=== PATIENT | female | born 1955 | race Caucasian/White ===

== ENCOUNTER → 2016-06-07 | Outpatient (CLI) | payer OTHER ==
[~2016-06-07] MED LIST: CARI250T PO; CEFD300C2 PO; CHOL100014 PO; CHOL100015 PO; CHOL10002 PO; CHOL3000 PO; FESO8TAB PO; INDO50CA PO; MAGN400T36 PO; MULT-464 PO; Magnesium PO; ONDA4TAB10 PO; ONDA4TAB7 PO; OXYC-302 PO; PANT40TA3 PO; PHYT100T PO; PROM25TA10 PO; PROM50TA4 PO; SUCR1TAB26 PO; TOLT2CAP PO; TOLT2TAB16 PO; TOPI100T24 PO; VITA1CAP PO; VITA40TA PO
== END | disposition home or self-care (01) ==
LOC: CFH 14:30
PROVIDERS: ATTEND Family Medicine
DX: Z12.31 Encounter for screening mammogram for malignant neoplasm of breast (principal)
CPT/HCPCS: 77063; G0202

== ENCOUNTER 2016-07-03 07:46 | Inpatient (IN) | payer OTHER ==
[2016-07-03] VITALS (14 sets, daily range): BP systolic 90–116; BP diastolic 52–74
[~2016-07-03] VITALS: Ht 157.5 cm; Wt 93.4 kg
[~2016-07-03 07:46] MED LIST changes: -CEFD300C2 PO; +CEFD300C37 PO
[2016-07-03] MEDS ORDERED: ONDANSETRON 2MG/ML, 2ML IVPush ONE (08:30)
[2016-07-03] MEDS ORDERED: SODIUM CHLORIDE 0.9% 1,000ML IVBOLUS ONE (08:30)
[2016-07-03 08:37] LABS: ASPARTATE AMINO TRANSFERASE 24 U/L (15-37); BLOOD UREA NITROGEN 48 mg/dL (7-18)
[2016-07-03] MEDS ORDERED: ONDANSETRON 2MG/ML, 2ML ONE (09:06)
[2016-07-03 09:26] LABS: HYPOCHROMIA 2+
[2016-07-03 09:27] LABS: ANISOCYTOSIS 2+; MICROCYTOSIS 2+; POLYCHROMASIA 1+
[2016-07-03 09:28] LABS: OVALOCYTES 1+
[2016-07-03] MEDS ORDERED: PANTOPRAZOLE 80 MG in SODIUM CHLORIDE 0.9% 50 ML IV ONE (10:00)
[2016-07-03] MEDS ORDERED: MORPHINE SULFATE 4 MG/ML, 1ML ONE (10:19)
[2016-07-03] MEDS ORDERED: FENTANYL PF 100 MCG/2ML ONE (10:21)
[2016-07-03] MEDS ORDERED: ZOLP10TA PO (10:28)
[2016-07-03] MEDS ORDERED: FENTANYL PF 100 MCG/2ML IV ONE (10:30)
[2016-07-03] MEDS ORDERED: TOLTERODINE LA 2MG CAP.ER.24H PO SCH (11:00)
[2016-07-03] MEDS ORDERED: ACETAMINOPHEN 325 MG TABLET PO PRN (11:00)
[2016-07-03] MEDS ORDERED: ZOLPIDEM 10MG TABLET PO PRN (11:00)
[2016-07-03] MEDS ORDERED: OMNIPAQUE 350 MG/ML, 100ML BOTTLE ONE (11:01)
[2016-07-03] MEDS ORDERED: [UNRECOGNIZED DRUG - REMARK] MC SCH (11:30)
[2016-07-03] MEDS ORDERED: PHYTONADIONE 5 MG TABLET PO SCH (11:30)
[2016-07-03] MEDS ORDERED: TOLTERODINE LA 4MG CAP.ER.24H PO SCH (13:26)
[2016-07-03] MEDS: SUCRALFATE 1 GM/10 ML UDC PO SCH ×3 (13:31→20:59)
[2016-07-03] MEDS: TOLTERODINE LA 4MG CAP.ER.24H PO SCH (13:35)
[2016-07-03] MEDS: OXYcodone/APAP 5/325MG TABLET PO PRN ×2 (14:22→21:04)
[2016-07-03] MEDS: SODIUM CHLORIDE 0.9% 1,000 ML IV SCH (14:56)
[2016-07-03] MEDS: PANTOPRAZOLE 80 MG in SODIUM CHLORIDE 0.9% 100 ML IV SCH (14:57)
[2016-07-04] VITALS (11 sets, daily range): BP systolic 88–132; BP diastolic 54–77
[2016-07-04] MEDS: PANTOPRAZOLE 80 MG in SODIUM CHLORIDE 0.9% 100 ML IV SCH ×3 (00:35→22:28)
[2016-07-04] MEDS: SODIUM CHLORIDE 0.9% 1,000 ML IV SCH (04:41)
[2016-07-04 06:55] LABS: BLOOD UREA NITROGEN 29 mg/dL (7-18)
[2016-07-04 07:07] LABS: ANISOCYTOSIS 1+; MICROCYTOSIS 1+; OVALOCYTES 1+; POIKILOCYTOSIS 1+
[2016-07-04] MEDS: SUCRALFATE 1 GM/10 ML UDC PO SCH ×5 (08:08→22:28)
[2016-07-04] MEDS: OXYcodone/APAP 5/325MG TABLET PO PRN ×4 (08:08→22:29)
[2016-07-04] MEDS: MAGNESIUM OXIDE 400 MG TABLET PO SCH (08:09)
[2016-07-04] MEDS: TOLTERODINE LA 4MG CAP.ER.24H PO SCH (08:09)
[2016-07-04 11:20] LABS: PATH.CAST-FLAG NOT PRESENT; SPERM-FLAG NOT PRESENT; SRC-FLAG NOT PRESENT; XTAL-FLAG NOT PRESENT; YLC-FLAG NOT PRESENT
[2016-07-04] MEDS ORDERED: ONDANSETRON 2MG/ML, 2ML ONE (13:15)
[2016-07-04] MEDS ORDERED: PROPOFOL 10 MG/ML, 20ML ONE (13:15)
[2016-07-04] MEDS ORDERED: FENTANYL PF 100 MCG/2ML ONE (13:59)
[2016-07-04] MEDS ORDERED: HYDROmorphone 1 MG/ML, 1ML IV PRN (14:00)
[2016-07-04] MEDS ORDERED: hydrALAzine 20 MG/ML, 1ML IV PRN (14:00)
[2016-07-04] MEDS ORDERED: OXYcodone 5 MG/5 ML ORAL.SOL UDC PO PRN (14:00)
[2016-07-04] MEDS ORDERED: ONDANSETRON 2MG/ML, 2ML IVPush PRN (14:00)
[2016-07-04] MEDS ORDERED: LABETALOL 5MG/ML, 20ML IV PRN (14:00)
[2016-07-04] MEDS ORDERED: ACETAMINOPHEN 325 MG TABLET PO PRN (14:00)
[2016-07-04] MEDS ORDERED: PROMETHAZINE 25 MG/ML, 1ML IV PRN (14:00)
[2016-07-04] MEDS ORDERED: MIDAZOLAM 1 MG/ML, 2ML IV PRN (14:00)
[2016-07-04] MEDS ORDERED: MEPERIDINE/PF 25MG/0.5ML IVPush PRN (14:00)
[2016-07-04] MEDS: FENTANYL PF 100 MCG/2ML IV PRN ×2 (14:05→14:15)
[2016-07-04] MEDS: FENTANYL PF 100 MCG/2ML IVPush PRN ×3 (14:54→22:29)
[2016-07-04] MEDS: NS + 20MEQ KCL 1,000 ML IV SCH (14:57)
[2016-07-04] MEDS ORDERED: MISOPROSTOL 100 MCG TABLET PO SCH (21:00)
[2016-07-05 02:00] VITALS: BP 96/65
[2016-07-05] MEDS: ONDANSETRON 2MG/ML, 2ML IVP PRN ×2 (03:14→13:55)
[2016-07-05] MEDS: FENTANYL PF 100 MCG/2ML IVPush PRN ×3 (03:27→13:55)
[2016-07-05] MEDS: OXYcodone/APAP 5/325MG TABLET PO PRN ×4 (03:27→18:32)
[2016-07-05] MEDS: NS + 20MEQ KCL 1,000 ML IV SCH (03:58)
[2016-07-05 05:42] LABS: BLOOD UREA NITROGEN 23 mg/dL (7-18)
[2016-07-05 08:02] VITALS: BP 96/63
[2016-07-05] MEDS: TOLTERODINE LA 4MG CAP.ER.24H PO SCH (09:42)
[2016-07-05] MEDS: SUCRALFATE 1 GM/10 ML UDC PO SCH ×3 (09:42→16:40)
[2016-07-05] MEDS: MAGNESIUM OXIDE 400 MG TABLET PO SCH (09:42)
[2016-07-05] MEDS ORDERED: MISOPROSTOL 100 MCG TABLET PO SCH (12:00)
[2016-07-05 12:33] VITALS: BP 96/64
[2016-07-05] MEDS ORDERED: OXYC-302 PO (14:19)
[2016-07-05] MEDS ORDERED: MISO100T PO (14:19)
[2016-07-05] MEDS ORDERED: SUCR1TAB26 PO (14:19)
[2016-07-05] MEDS ORDERED: ONDA4TAB13 SL (14:20)
[2016-07-05] MEDS ORDERED: ONDANSETRON ODT 4 MG ONE (16:39)
== END 2016-07-05 18:57 | disposition home or self-care (01) | DRG 329 ==
LOC: ED 09:46 → EDIP 09:47 → SUATTDRO 10:19 → ED 10:33 → 4EST 11:04
PROVIDERS: ADMIT Internal Medicine; ATTEND Internal Medicine
PROC: 30233N1 Transfusion of Nonautologous Red Blood Cells into Peripheral Vein, Percutaneous Approach (ICD-10-PCS; 2016-07-03)
PROC: 0D5A8ZZ Destruction of Jejunum, Via Natural or Artificial Opening Endoscopic (ICD-10-PCS; 2016-07-04)
PROC: 0DV Gastrointestinal System, Restriction (ICD-10-PCS; principal; 2016-07-04 13:00)
DX: K31.811 Angiodysplasia of stomach and duodenum with bleeding (principal); N17.0 Acute kidney failure with tubular necrosis; D62 Acute posthemorrhagic anemia; E87.1 Hypo-osmolality and hyponatremia; E44.0 Moderate protein-calorie malnutrition; E86.0 Dehydration; G89.29 Other chronic pain; E55.9 Vitamin D deficiency, unspecified; I12.9 Hypertensive chronic kidney disease with stage 1 through stage 4 chronic kidney disease, or unspecified chronic kidney disease; N18.3 Chronic kidney disease, stage 3 (moderate); N32.89 Other specified disorders of bladder; D50.9 Iron deficiency anemia, unspecified; K76.89 Other specified diseases of liver; K76.0 Fatty (change of) liver, not elsewhere classified; Z87.11 Personal history of peptic ulcer disease; Z98.84 Bariatric surgery status; Z90.49 Acquired absence of other specified parts of digestive tract; Z90.710 Acquired absence of both cervix and uterus; Z80.3 Family history of malignant neoplasm of breast; Z88.6 Allergy status to analgesic agent; Z88.5 Allergy status to narcotic agent; Z68.36 Body mass index [BMI] 36.0-36.9, adult; Z87.440 Personal history of urinary (tract) infections; Z78.0 Asymptomatic menopausal state; Z79.891 Long term (current) use of opiate analgesic
CPT/HCPCS: 36415; 74174; 80048; 80053; 81001; 85025; 85610; 86850; 86900; 86923; 93005; 96361; 96374; 96375; 99291; J2405; J2704; J3010; J3480; Q9967; C9113; J7030; P9016

== ENCOUNTER 2016-10-17 12:15 | Day surgery (SDC) | payer OTHER ==
[~2016-10-17] VITALS: Ht 154.9 cm; Wt 87.8 kg
[~2016-10-17 12:15] MED LIST changes: +MISO100T PO; +ONDA4TAB13 SL; +ZOLP10TA PO
[2016-10-17 12:43] VITALS: BP 114/74
[2016-10-17] MEDS ORDERED: LACTATED RINGERS 1,000 ML IV SCH (12:50)
[2016-10-17 13:19] LABS: HEMATOCRIT 25.1 % (34.6-47.8); HEMOGLOBIN 8.4 g/dL (11.7-16.4); WHITE BLOOD COUNT 3.8 x10^3/uL (3.4-10)
[2016-10-17] MEDS ORDERED: ONDANSETRON 2MG/ML, 2ML ONE (13:26)
[2016-10-17] MEDS ORDERED: PROPOFOL 10 MG/ML, 20ML ONE (13:26)
[2016-10-17 13:29] LABS: DIFF TOTAL CELLS COUNTED 100 CELL DIFF
[2016-10-17] MEDS ORDERED: LABETALOL 5MG/ML, 20ML IV PRN (13:30)
[2016-10-17] MEDS ORDERED: MEPERIDINE/PF 25MG/0.5ML IVPush PRN (13:30)
[2016-10-17] MEDS ORDERED: MIDAZOLAM 1 MG/ML, 2ML IV PRN (13:30)
[2016-10-17] MEDS ORDERED: ONDANSETRON 2MG/ML, 2ML IVPush PRN (13:30)
[2016-10-17] MEDS ORDERED: HYDROmorphone 1 MG/ML, 1ML IV PRN (13:30)
[2016-10-17] MEDS ORDERED: hydrALAzine 20 MG/ML, 1ML IV PRN (13:30)
[2016-10-17] MEDS ORDERED: OXYcodone 5 MG/5 ML ORAL.SOL UDC PO PRN (13:30)
[2016-10-17 13:40] LABS: POLYCHROMASIA 1+; VERIFY COUNTS? YES
[2016-10-17 13:41] LABS: ANISOCYTOSIS 1+; MICROCYTOSIS 1+; OVALOCYTES 1+
[2016-10-17] MEDS ORDERED: FENTANYL PF 100 MCG/2ML ONE (13:55)
[2016-10-17] MEDS: FENTANYL PF 100 MCG/2ML IV PRN ×2 (14:00→14:05)
[2016-10-17] MEDS ORDERED: OXYcodone 5 MG/5 ML ORAL.SOL UDC ONE (14:19)
== END 2016-10-17 15:20 ==
LOC: OUT 12:15
PROVIDERS: ATTEND Internal Medicine Gastroenterology
DX: D12.2 Benign neoplasm of ascending colon (principal); D12.3 Benign neoplasm of transverse colon; D50.9 Iron deficiency anemia, unspecified; K21.9 Gastro-esophageal reflux disease without esophagitis; E66.01 Morbid (severe) obesity due to excess calories; Z68.36 Body mass index [BMI] 36.0-36.9, adult; Z88.6 Allergy status to analgesic agent
CPT/HCPCS: 36415; 45385; 85025; 88305; J2405; J2704; J3010

== ENCOUNTER 2016-10-25 19:59 | Emergency (ER) | payer OTHER ==
[~2016-10-25] VITALS: Ht 157.5 cm; Wt 87.3 kg
[~2016-10-25 19:59] MED LIST changes: -SUCR1TAB26 PO; +SUCR1TAB33 PO
[2016-10-25] MEDS ORDERED: FLUORESCEIN OPHTHALMIC 1 MG STRIP EACHEYE ONE (20:30)
[2016-10-25] MEDS ORDERED: PROPARACAINE OPHTH 0.5%, 15ML EACHEYE ONE (20:30)
[2016-10-25] MEDS ORDERED: FLUORESCEIN OPHTHALMIC 1 MG STRIP ONE (20:43)
[2016-10-25] MEDS ORDERED: PROPARACAINE OPHTH 0.5%, 15ML ONE (20:43)
[2016-10-25] MEDS ORDERED: HYDROcodone/APAP 5/325 TABLET ONE (21:09)
[2016-10-25] MEDS ORDERED: ACYCLOVIR 200 MG CAPSULE PO ONE (21:30)
[2016-10-25] MEDS ORDERED: HYDROcodone/APAP 5/325 TABLET PO ONE (21:30)
[2016-10-25 21:46] VITALS: BP 141/72
== END 2016-10-25 21:48 | disposition home or self-care (01) ==
LOC: ED 21:42
DX: B02.29 Other postherpetic nervous system involvement (principal); I10 Essential (primary) hypertension; G89.29 Other chronic pain; Z86.19 Personal history of other infectious and parasitic diseases; Z90.710 Acquired absence of both cervix and uterus; Z90.49 Acquired absence of other specified parts of digestive tract
CPT/HCPCS: 99283

== ENCOUNTER 2016-10-27 09:11 | Emergency (ER) | payer OTHER ==
[~2016-10-27] VITALS: Ht 157.5 cm; Wt 88.9 kg
[2016-10-27 09:19] VITALS: BP 113/72
[2016-10-27] MEDS ORDERED: OXYcodone/APAP 5/325MG TABLET PO ONE (10:00)
[2016-10-27] MEDS ORDERED: FLUORESCEIN OPHTHALMIC 1 MG STRIP ONE (10:17)
[2016-10-27] MEDS ORDERED: OXYcodone/APAP 5/325MG TABLET ONE (10:19)
== END 2016-10-27 12:10 ==
LOC: ED 10:54
DX: H10.231 Serous conjunctivitis, except viral, right eye (principal); B02.9 Zoster without complications; I10 Essential (primary) hypertension; Z88.5 Allergy status to narcotic agent; Z88.6 Allergy status to analgesic agent; Z88.8 Allergy status to other drugs, medicaments and biological substances
CPT/HCPCS: 99283

== ENCOUNTER → 2016-11-12 | Outpatient (CLI) | payer OTHER ==
[~2016-11-12] MED LIST changes: +CYAN250013 PO; +MISO100T4 PO; +MULT-224 PO; +OXYC5TAB3 PO
== END | disposition home or self-care (01) ==
LOC: STAR 14:31
PROVIDERS: ATTEND Surgery
DX: Z02.9 Encounter for administrative examinations, unspecified (principal)

== ENCOUNTER 2016-11-26 08:36 | Inpatient (IN) | payer OTHER ==
[~2016-11-26] VITALS: Ht 157.5 cm; Wt 90.0 kg
[~2016-11-26 08:36] MED LIST changes: +BUPIVACAINE/PF 0.5% ONE; -OXYC5TAB3 PO
[2016-11-26 10:11] LABS: HEMATOCRIT 23.4 % (34.6-47.8); HEMOGLOBIN 7.9 g/dL (11.7-16.4); WHITE BLOOD COUNT 5.6 x10^3/uL (3.4-10)
[2016-11-26 10:31] LABS: ANISOCYTOSIS 2+; MICROCYTOSIS 1+; POLYCHROMASIA 1+
[2016-11-26] MEDS ORDERED: MIDAZOLAM 1 MG/ML, 2ML ONE ×4 (11:01→13:09)
[2016-11-26] MEDS ORDERED: ROCURONIUM 10 MG/ML ONE (11:05)
[2016-11-26] MEDS ORDERED: FENTANYL PF 500 MCG/10ML ONE (11:05)
[2016-11-26] MEDS ORDERED: DEXAMETHASONE 4 MG/ML, 1ML ONE (11:05)
[2016-11-26] MEDS ORDERED: PROPOFOL 10 MG/ML, 20ML ONE (11:05)
[2016-11-26] MEDS ORDERED: ONDANSETRON 2MG/ML, 2ML ONE (11:05)
[2016-11-26] MEDS ORDERED: CEFAZOLIN 1,000 MG ONE (11:05)
[2016-11-26] MEDS ORDERED: OXYcodone 5 MG/5 ML ORAL.SOL UDC PO PRN (12:00)
[2016-11-26] MEDS ORDERED: MEPERIDINE/PF 25MG/0.5ML IVPush PRN (12:00)
[2016-11-26] MEDS ORDERED: FENTANYL PF 100 MCG/2ML IV PRN (12:00)
[2016-11-26] MEDS ORDERED: ONDANSETRON 2MG/ML, 2ML IVPush PRN ×2 (12:00→16:30)
[2016-11-26] MEDS ORDERED: ACETAMINOPHEN 325 MG TABLET PO PRN (12:00)
[2016-11-26] MEDS ORDERED: hydrALAzine 20 MG/ML, 1ML IV PRN (12:00)
[2016-11-26] MEDS: HYDROmorphone 1 MG/ML, 1ML IV PRN ×4 (13:10→13:36)
[2016-11-26] MEDS ORDERED: MEPERIDINE/PF 25MG/0.5ML ONE (13:10)
[2016-11-26] MEDS ORDERED: HYDROmorphone 2 MG/ML, 1ML ONE ×2 (13:10→15:04)
[2016-11-26] MEDS: MIDAZOLAM 1 MG/ML, 2ML IV PRN ×2 (13:19→13:40)
[2016-11-26] MEDS ORDERED: OXYcodone 5 MG/5 ML ORAL.SOL UDC ONE (13:30)
[2016-11-26] MEDS: HYDROmorphone 2 MG/ML, 1ML IVPush PRN ×4 (15:11→21:46)
[2016-11-26] MEDS: LACTATED RINGERS 1,000 ML IV SCH (16:13)
[2016-11-26] MEDS: OXYcodone/APAP 5/325MG TABLET PO PRN ×2 (18:48→21:54)
[2016-11-27] VITALS (7 sets, daily range): BP systolic 108–130; BP diastolic 53–75
[2016-11-27] MEDS: HYDROmorphone 2 MG/ML, 1ML IVPush PRN ×2 (00:42→04:24)
[2016-11-27] MEDS: OXYcodone/APAP 5/325MG TABLET PO PRN ×3 (02:49→11:29)
[2016-11-27] MEDS: LACTATED RINGERS 1,000 ML IV SCH (05:20)
[2016-11-27 06:05] LABS: WHITE BLOOD COUNT 6.5 x10^3/uL (3.4-10)
[2016-11-27 06:11] LABS: HEMATOCRIT 20.3 % (34.6-47.8); HEMOGLOBIN 6.9 g/dL (11.7-16.4)
[2016-11-27] MEDS ORDERED: TOLTERODINE LA 4MG CAP.ER.24H PO SCH (09:00)
[2016-11-27] MEDS ORDERED: CHOLECALCIFEROL 1,000 UNIT TABLET PO SCH (09:00)
[2016-11-27] MEDS ORDERED: CYANOCOBALAMIN 1,000 MCG TABLET PO SCH (09:00)
[2016-11-27] MEDS ORDERED: MAGNESIUM OXIDE 400 MG TABLET PO SCH (09:00)
[2016-11-27] MEDS ORDERED: MISOPROSTOL 100 MCG TABLET PO SCH (09:00)
[2016-11-27] MEDS ORDERED: MULTIVITAMIN 1 TABLET PO SCH (09:00)
[2016-11-27] MEDS ORDERED: VITAMIN K 100 MCG PO SCH (09:00)
[2016-11-27] MEDS: OXYcodone IR 5MG TABLET PO PRN ×2 (10:03→14:10)
[2016-11-27 12:14] LABS: HEMATOCRIT 25.1 % (34.6-47.8); HEMOGLOBIN 8.4 g/dL (11.7-16.4)
[2016-11-27] MEDS ORDERED: OXYC5TAB3 PO (13:36)
[2016-11-28] MEDS ORDERED: PANTOPROZOLE 40MG TABLET PO SCH (06:17)
== END 2016-11-27 14:55 | disposition home or self-care (01) | DRG 355 ==
LOC: OUT 08:36 → ORIP 16:11 → 3WST 19:00
PROVIDERS: ADMIT Surgery; ATTEND Surgery
PROC: 8E0W4CZ Robotic Assisted Procedure of Trunk Region, Percutaneous Endoscopic Approach (ICD-10-PCS; 2016-11-26)
PROC: 0WUF4JZ Supplement Abdominal Wall with Synthetic Substitute, Percutaneous Endoscopic Approach (ICD-10-PCS; principal; 2016-11-26 11:00)
PROC: 30233N1 Transfusion of Nonautologous Red Blood Cells into Peripheral Vein, Percutaneous Approach (ICD-10-PCS; 2016-11-27)
DX: K43.2 Incisional hernia without obstruction or gangrene (principal); D64.9 Anemia, unspecified
CPT/HCPCS: 36415; 85014; 85018; 85025; 86850; 86900; 86923; J0690; J1100; J1170; J2175; J2250; J2405; J2704; J3010; J3490; C1781; P9016

== ENCOUNTER → 2016-12-12 | Outpatient (CLI) | payer OTHER ==
[~2016-12-12] MED LIST changes: -BUPIVACAINE/PF 0.5% ONE; +OXYC5TAB3 PO
== END | disposition home or self-care (01) ==
LOC: PETCFH 08:03
PROVIDERS: ATTEND Internal Medicine Gastroenterology
DX: K21.9 Gastro-esophageal reflux disease without esophagitis (principal); D50.9 Iron deficiency anemia, unspecified; Z98.84 Bariatric surgery status; Z88.8 Allergy status to other drugs, medicaments and biological substances
CPT/HCPCS: 78264; A9541

== ENCOUNTER 2016-12-14 19:42 | Emergency (ER) | payer OTHER ==
[~2016-12-14] VITALS: Ht 157.5 cm; Wt 85.1 kg
[2016-12-14 21:00] LABS: PATH.CAST-FLAG NOT PRESENT; SPERM-FLAG NOT PRESENT; SRC-FLAG NOT PRESENT; XTAL-FLAG NOT PRESENT; YLC-FLAG NOT PRESENT
[2016-12-14] MEDS ORDERED: SODIUM CHLORIDE 0.9% 1,000ML IVBOLUS ONE (21:00)
[2016-12-14] MEDS ORDERED: ONDANSETRON 2MG/ML, 2ML IVPush ONE (21:00)
[2016-12-14] MEDS ORDERED: SODIUM CHLORIDE FLUSH 10ML SYR IVF ONE (21:00)
[2016-12-14] MEDS ORDERED: ONDANSETRON 2MG/ML, 2ML ONE (21:26)
[2016-12-14] MEDS ORDERED: MORPHINE SULFATE 4 MG/ML, 1ML ONE (21:26)
[2016-12-14] MEDS ORDERED: HYDROmorphone 1 MG/ML, 1ML ONE ×2 (21:31→22:31)
[2016-12-14] MEDS: HYDROmorphone 1 MG/ML, 1ML IVPush PRN ×2 (21:32→22:33)
[2016-12-14 21:43] LABS: ASPARTATE AMINO TRANSFERASE 18 U/L (15-37); BLOOD UREA NITROGEN 23 mg/dL (7-18)
[2016-12-14 22:10] LABS: HEMATOCRIT 23.8 % (34.6-47.8); WHITE BLOOD COUNT 5.9 x10^3/uL (3.4-10)
[2016-12-14 22:28] LABS: DIFF TOTAL CELLS COUNTED 100 CELL DIFF
[2016-12-14] MEDS ORDERED: OMNIPAQUE 350 MG/ML, 100ML BOTTLE ONE (22:34)
[2016-12-14 22:37] LABS: ROULEAUX 1+
[2016-12-14 22:38] LABS: POLYCHROMASIA 1+; VERIFY COUNTS? YES
[2016-12-14 22:39] LABS: ANISOCYTOSIS 2+
[2016-12-14 23:01] VITALS: BP 115/71
== END 2016-12-15 00:23 | disposition home or self-care (01) ==
LOC: ED 21:04
DX: R10.32 Left lower quadrant pain (principal); I10 Essential (primary) hypertension
CPT/HCPCS: 36415; 74177; 80053; 81001; 85025; 87086; 93005; 96361; 96374; 96375; 96376; 99285; J1170; J2405; J7030; Q9967

== ENCOUNTER 2017-01-09 08:01 | Inpatient (IN) | payer OTHER ==
[2017-01-07 09:26] LABS: ASPARTATE AMINO TRANSFERASE 19 U/L (15-37); BLOOD UREA NITROGEN 20 mg/dL (7-18)
[2017-01-07 09:29] LABS: HEMATOCRIT 24.4 % (34.6-47.8); HEMOGLOBIN 8.1 g/dL (11.7-16.4)
[2017-01-07 09:49] LABS: DIFF TOTAL CELLS COUNTED 100 CELL DIFF
[2017-01-07 09:52] LABS: VERIFY COUNTS? YES
[2017-01-07 09:55] LABS: ANISOCYTOSIS 2+; LARGE PLATELETS 1+; POLYCHROMASIA 1+; ROULEAUX 1+
[~2017-01-09] VITALS: Ht 157.5 cm; Wt 82.0 kg
[~2017-01-09 08:01] MED LIST changes: +BIOT5TAB PO; +METO10TA82 PO
[2017-01-09] MEDS ORDERED: LACTATED RINGERS 1,000 ML IV SCH (08:32)
[2017-01-09] MEDS ORDERED: STOOL SOFTNER PO (08:35)
[2017-01-09 08:38] VITALS: BP 123/76
[2017-01-09] MEDS ORDERED: LIDOCAINE 1%, 2ML ONE (10:06)
[2017-01-09] MEDS ORDERED: ACETAMINOPHEN 500 MG TABLET ONE (10:08)
[2017-01-09] MEDS ORDERED: ACETAMINOPHEN 500 MG TABLET PO ONE (10:30)
[2017-01-09] MEDS ORDERED: MIDAZOLAM 1 MG/ML, 2ML ONE ×2 (12:08→15:02)
[2017-01-09] MEDS ORDERED: MIDAZOLAM 2 MG/ML ORAL SOL ONE (12:08)
[2017-01-09] MEDS ORDERED: PROPOFOL 10 MG/ML, 20ML ONE ×2 (12:40→15:05)
[2017-01-09] MEDS ORDERED: BUPIVACAINE/PF 0.5% ONE (14:07)
[2017-01-09] MEDS ORDERED: BACITRACIN 50,000 UNIT ONE (14:08)
[2017-01-09] MEDS ORDERED: THROMBIN 20,000 UNIT VIAL TP ONE (14:08)
[2017-01-09] MEDS ORDERED: EPINEPHRINE 1 MG/ML, 1ML ONE (14:08)
[2017-01-09] MEDS ORDERED: MANNITOL PMX 20% 500 ML ONE (14:11)
[2017-01-09] MEDS ORDERED: BUPIVACAINE/PF-EPI 0.5% 1:200K IM ONE (15:00)
[2017-01-09] MEDS ORDERED: FENTANYL PF 500 MCG/10ML ONE (15:02)
[2017-01-09] MEDS ORDERED: CEFUROXIME 1.5 GM ONE (15:03)
[2017-01-09] MEDS ORDERED: LIDOCAINE GEL 2%, 5ML ONE (15:04)
[2017-01-09] MEDS ORDERED: SUCCINYLCHOLINE 20 MG/ML, 10ML ONE (15:05)
[2017-01-09] MEDS ORDERED: ROCURONIUM 10 MG/ML ONE (15:05)
[2017-01-09] MEDS ORDERED: ONDANSETRON 2MG/ML, 2ML ONE ×2 (15:05→15:06)
[2017-01-09] MEDS ORDERED: DEXAMETHASONE 4 MG/ML, 1ML ONE ×2 (15:06)
[2017-01-09] MEDS ORDERED: OXYcodone 5 MG/5 ML ORAL.SOL UDC ONE (16:26)
[2017-01-09] MEDS ORDERED: ACETAMINOPHEN 650 MG/20.3 ML UDC ONE (16:26)
[2017-01-09] MEDS ORDERED: FENTANYL PF 100 MCG/2ML ONE (16:28)
[2017-01-09] MEDS ORDERED: ACETAMINOPHEN 325 MG TABLET PO PRN (16:30)
[2017-01-09] MEDS: FENTANYL PF 100 MCG/2ML IV PRN ×2 (16:30→16:56)
[2017-01-09] MEDS ORDERED: ONDANSETRON 2MG/ML, 2ML IVPush PRN (16:30)
[2017-01-09] MEDS ORDERED: PROMETHAZINE 25 MG/ML, 1ML IV PRN (16:30)
[2017-01-09] MEDS ORDERED: OXYcodone 5 MG/5 ML ORAL.SOL UDC PO PRN (16:30)
[2017-01-09] MEDS ORDERED: MIDAZOLAM 1 MG/ML, 2ML IV PRN (16:30)
[2017-01-09] MEDS ORDERED: hydrALAzine 20 MG/ML, 1ML IV PRN (16:30)
[2017-01-09] MEDS ORDERED: LORazepam 2 MG/ML, 1ML IVPush PRN (16:30)
[2017-01-09] MEDS ORDERED: MEPERIDINE/PF 25MG/0.5ML IVPush PRN (16:30)
[2017-01-09] MEDS ORDERED: LABETALOL 5MG/ML, 20ML IV PRN (16:30)
[2017-01-09] MEDS: HYDROmorphone 1 MG/ML, 1ML IV PRN ×2 (16:40→16:49)
[2017-01-09] MEDS ORDERED: OXYcodone/APAP 5/325MG TABLET PO PRN (18:30)
[2017-01-09] MEDS ORDERED: D5%-0.9% NACL+KCL 20MEQ 1,000 ML IV SCH (18:30)
[2017-01-09] MEDS ORDERED: ONDANSETRON 2MG/ML, 2ML IV PRN (18:30)
[2017-01-09] MEDS ORDERED: CEFAZOLIN PMX 1GM/50ML 50 ML IVPB SCH (19:00)
[2017-01-09] MEDS ORDERED: OXYC-302 PO (19:25)
[2017-01-10] MEDS ORDERED: SENNA/DOCUSATE TABLET PO SCH (09:00)
== END 2017-01-09 19:45 | disposition home or self-care (01) | DRG 842 ==
LOC: ORIP 08:01 → 4NOR 17:45
PROVIDERS: ADMIT Neurological Surgery; ATTEND Neurological Surgery
PROC: 0WB Anatomical Regions, General, Excision (ICD-10-PCS; principal; 2017-01-09 13:00)
DX: C90.30 Solitary plasmacytoma not having achieved remission (principal)
CPT/HCPCS: 36415; 70553; 71020; 80053; 85025; 85610; 85730; 86850; 86900; 88305; 88331; 88341; 88342; 88360; A9585; C1713; J0171; J0697; J1100; J1170; J2250; J2405; J2704; J3010; J3490; A4648; G0461; J0330; J7120

== ENCOUNTER 2017-01-16 06:50 | Day surgery (SDC) | payer OTHER ==
[~2017-01-16] VITALS: Ht 157.5 cm; Wt 80.0 kg
[~2017-01-16 06:50] MED LIST changes: +STOOL SOFTNER PO
[2017-01-16] MEDS ORDERED: LIDOCAINE 1%, 20ML ONE (09:06)
[2017-01-16 09:15] VITALS: BP 130/85
[2017-01-16] MEDS ORDERED: SODIUM CHLORIDE 0.9% 1,000 ML IV SCH (09:17)
[2017-01-16] MEDS ORDERED: FENTANYL PF 100 MCG/2ML ONE (09:38)
[2017-01-16] MEDS ORDERED: MIDAZOLAM 1 MG/ML, 5ML ONE ×2 (09:38)
[2017-01-16] MEDS ORDERED: NALOXONE 1 MG/ML, 2ML ONE (09:39)
[2017-01-16 10:29] LABS: HEMATOCRIT 26.6 % (34.6-47.8); HEMOGLOBIN 9.1 g/dL (11.7-16.4)
[2017-01-16 10:30] LABS: DIFF TOTAL CELLS COUNTED 100 CELL DIFF
[2017-01-16 10:34] LABS: ANISOCYTOSIS 2+; POLYCHROMASIA 1+; ROULEAUX 1+; VERIFY COUNTS? YES
[2017-01-31] MEDS ORDERED: PANT20TA2 PO (15:10)
== END 2017-01-16 17:00 ==
LOC: OUT 06:50
PROVIDERS: ATTEND Specialist
DX: C83.30 Diffuse large B-cell lymphoma, unspecified site (principal); C90.00 Multiple myeloma not having achieved remission
CPT/HCPCS: 36415; 38221; 77012; 85025; 85060; 85097; 88237; 88264; 88280; 88305; 88311; 88313; 88360; 93306; 99156; 99157; G0364; J2250; J3010; J3490; J7030; J2310

== ENCOUNTER → 2017-01-17 | Outpatient (CLI) | payer OTHER | END | disposition home or self-care (01) | LOC: PETCFH 07:39 | PROVIDERS: ATTEND Specialist | DX: C83.31 Diffuse large B-cell lymphoma, lymph nodes of head, face, and neck (principal); M89.8X8 Other specified disorders of bone, other site | CPT/HCPCS: 78815; A9552 ==

== ENCOUNTER 2017-03-07 11:30 | Emergency (ER) | payer OTHER ==
[~2017-03-07] VITALS: Ht 157.5 cm; Wt 86.6 kg
[~2017-03-07 11:30] MED LIST changes: +PANT20TA2 PO
[2017-03-07] MEDS ORDERED: SODIUM CHLORIDE 0.9% 1,000ML IVBOLUS ONE (12:30)
[2017-03-07] MEDS ORDERED: SODIUM CHLORIDE FLUSH 10ML SYR IVF ONE (12:30)
[2017-03-07 12:57] LABS: BASOPHILS # (AUTO) 0.04 x10^3/uL (0-0.1); BASOPHILS % (AUTO) 1 % (0-1); EOSINOPHILS # (AUTO) 0.06 x10^3/uL (0-0.4); EOSINOPHILS % (AUTO) 1 % (1-7); LYMPHOCYTES # (AUTO) 0.34 x10^3/uL (1-3.4); LYMPHOCYTES % (AUTO) 7 % (22-44); MD NO; MEAN CORPUSCULAR HEMOGLOBIN 30.6 pg (27.0-34.8); MEAN CORPUSCULAR HGB CONC 33.4 g/dL (32.4-35.8); MEAN CORPUSCULAR VOLUME 91.7 fL (80-100); MEAN PLATELET VOLUME 10.2 fL (7.4-10.4); MONOCYTES # (AUTO) 0.55 x10^3/uL (0.2-0.8); MONOCYTES % (AUTO) 10 % (2-9); NEUTROPHILS # (AUTO) 4.32 x10^3/uL (1.8-6.8); NEUTROPHILS % (AUTO) 81 % (42-75); PLATELET COUNT 166 x10^3/uL (130-400); RED BLOOD COUNT 3.48 x10^6/uL (3.82-5.3); RED CELL DISTRIBUTION WIDTH 21.4 % (9.6-15.2)
[2017-03-07 13:09] LABS: ALBUMIN 2.7 g/dL (3.4-5.0); ANION GAP 8 mmol/L (5-15); CALCIUM 7.6 mg/dL (8.5-10.1); CHLORIDE 104 mmol/L (98-107); CREATININE 0.92 mg/dL (0.55-1.02)
[2017-03-07 13:51] LABS: MICROSCOPIC NOT IND
[2017-03-07 13:53] LABS: CULTURE INDICATED? NO
[2017-03-07] MEDS ORDERED: ALBUTEROL SULFATE 2.5 MG/3 ML ONE (14:48)
[2017-03-07] MEDS ORDERED: ALBUTEROL SULFATE 2.5 MG/3 ML NPPB SCH (15:00)
[2017-03-07 15:12] VITALS: BP 100/39
== END 2017-03-07 15:14 | disposition home or self-care (01) ==
LOC: ED 15:00
DX: B34.9 Viral infection, unspecified (principal); I10 Essential (primary) hypertension; Z90.49 Acquired absence of other specified parts of digestive tract; Z90.710 Acquired absence of both cervix and uterus
CPT/HCPCS: 36415; 71046; 80048; 81003; 82040; 83605; 85025; 87040; 94640; 96360; 99285; J7030; J7613

== ENCOUNTER 2017-03-11 13:00 | Day surgery (SDC) | payer OTHER ==
[~2017-03-11] VITALS: Ht 157.5 cm; Wt 83.3 kg
[2017-03-11] MEDS ORDERED: LACTATED RINGERS 1,000 ML IV SCH (13:28)
[2017-03-11 13:32] VITALS: BP 127/84
[2017-03-11] MEDS ORDERED: FENTANYL PF 100 MCG/2ML IV PRN (14:00)
[2017-03-11] MEDS ORDERED: LABETALOL 5MG/ML, 20ML IV PRN (14:00)
[2017-03-11] MEDS ORDERED: OXYcodone 5 MG/5 ML ORAL.SOL UDC PO PRN (14:00)
[2017-03-11] MEDS ORDERED: ONDANSETRON 2MG/ML, 2ML IVPush PRN (14:00)
[2017-03-11] MEDS ORDERED: HYDROmorphone 1 MG/ML, 1ML IV PRN (14:00)
[2017-03-11] MEDS ORDERED: PROMETHAZINE 25 MG/ML, 1ML IV PRN (14:00)
[2017-03-11] MEDS ORDERED: hydrALAzine 20 MG/ML, 1ML IV PRN (14:00)
[2017-03-11] MEDS ORDERED: DIAZEPAM 5 MG/ML, 2ML IVPush PRN (14:00)
[2017-03-11] MEDS ORDERED: MEPERIDINE/PF 25MG/0.5ML IVPush PRN (14:00)
[2017-03-11] MEDS ORDERED: MIDAZOLAM 1 MG/ML, 2ML ONE ×2 (14:24)
[2017-03-11] MEDS ORDERED: ONDANSETRON 2MG/ML, 2ML ONE (14:37)
[2017-03-11] MEDS ORDERED: EPHEDRINE 50 MG/ML, 1ML ONE (14:37)
[2017-03-11] MEDS ORDERED: PROPOFOL 10 MG/ML, 20ML ONE (14:37)
[2017-03-11] MEDS ORDERED: MIDAZOLAM 1 MG/ML, 5ML ONE (14:57)
[2017-03-11] MEDS ORDERED: GADOBUTROL 10 MMOL/10 ML PFS ONE (15:17)
== END 2017-03-11 16:35 ==
LOC: OUT 13:00 → EDSTATUS 15:00 → OUT 16:35
PROVIDERS: ATTEND Specialist
DX: C90.00 Multiple myeloma not having achieved remission (principal); Z91.09 Other allergy status, other than to drugs and biological substances; K21.9 Gastro-esophageal reflux disease without esophagitis
CPT/HCPCS: 70553; A9585; J2250; J2405; J2704; J7120

== ENCOUNTER → 2017-05-07 | Outpatient (CLI) | payer OTHER | END | disposition home or self-care (01) | LOC: PETCFH 09:33 | PROVIDERS: ATTEND Specialist | DX: C90.00 Multiple myeloma not having achieved remission (principal); M89.9 Disorder of bone, unspecified | CPT/HCPCS: 78815; A9552 ==

== ENCOUNTER 2017-05-08 08:37 | Day surgery (SDC) | payer OTHER ==
[~2017-05-08] VITALS: Ht 157.5 cm; Wt 91.3 kg
[2017-05-08] MEDS ORDERED: SODIUM CHLORIDE 0.9% 1,000 ML IV SCH (09:20)
[2017-05-08] MEDS ORDERED: PLEASE ENTER HEIGHT AND WEIGHT MC SCH (09:30)
[2017-05-08] MEDS ORDERED: MIDAZOLAM 1 MG/ML, 5ML ONE (10:01)
[2017-05-08] MEDS ORDERED: FENTANYL PF 100 MCG/2ML ONE (10:01)
[2017-05-08] MEDS ORDERED: NALOXONE 1 MG/ML, 2ML ONE (10:01)
[2017-05-08] MEDS ORDERED: FLUMAZENIL 0.1 MG/1 ML, 5ML ONE (10:01)
[2017-05-08 10:07] LABS: MEAN CORPUSCULAR HEMOGLOBIN 29.2 pg (27.0-34.8); MEAN CORPUSCULAR HGB CONC 33.1 g/dL (32.4-35.8); MEAN CORPUSCULAR VOLUME 88.1 fL (80-100); MEAN PLATELET VOLUME 11.3 fL (7.4-10.4); PLATELET COUNT 294 x10^3/uL (130-400); RED BLOOD COUNT 4.83 x10^6/uL (3.82-5.3); RED CELL DISTRIBUTION WIDTH 17.4 % (9.6-15.2)
[2017-05-08 10:43] LABS: MD YES
[2017-05-08 10:46] LABS: BAND#(MANUAL) 0.91 x10^3/uL; BANDS%(MANUAL) 13 % (0-7); LYMPHS% (MANUAL) 10 % (22-44); MONOS#(MANUAL) 0.07 x10^3/uL (0.3-2.7); MONOS% (MANUAL) 1 % (2-9); SEG#(MANUAL) 5.32 x10^3/uL (1.8-6.8); SEGS% (MANUAL) 76 % (42-75)
[2017-05-08 10:47] LABS: <PLATELET ESTIMATE> ADEQUATE; ANISOCYTOSIS 1+; LARGE PLATELETS 1+; OVALOCYTES 1+
== END 2017-05-08 15:40 | disposition home or self-care (01) ==
LOC: OUT 08:37
PROVIDERS: ATTEND Specialist
DX: C83.30 Diffuse large B-cell lymphoma, unspecified site (principal); C90.00 Multiple myeloma not having achieved remission; D50.8 Other iron deficiency anemias; N18.9 Chronic kidney disease, unspecified; K21.9 Gastro-esophageal reflux disease without esophagitis; F32.89 Other specified depressive episodes; Z90.710 Acquired absence of both cervix and uterus; Z90.49 Acquired absence of other specified parts of digestive tract; Z98.890 Other specified postprocedural states; Z98.84 Bariatric surgery status; Z88.8 Allergy status to other drugs, medicaments and biological substances; Z79.891 Long term (current) use of opiate analgesic; Z79.82 Long term (current) use of aspirin; Z79.899 Other long term (current) drug therapy
CPT/HCPCS: 36415; 38222; 71046; 77012; 85025; 85060; 85097; 88237; 88264; 88280; 88305; 88311; 88313; 93005; 99156; 99157; J2250; J3010; J7030; 88360; J2310

== ENCOUNTER 2017-05-26 13:49 | Emergency (ER) | payer OTHER ==
[~2017-05-26] VITALS: Ht 157.5 cm; Wt 91.6 kg
[2017-05-26 14:17] VITALS: BP 121/83
[2017-05-26] MEDS ORDERED: HYDROcodone/APAP 5/325 TABLET PO ONE (15:00)
[2017-05-26] MEDS ORDERED: HYDROcodone/APAP 5/325 TABLET ONE (15:31)
== END 2017-05-26 16:12 | disposition home or self-care (01) ==
LOC: ED 15:40
DX: S39.012A Strain of muscle, fascia and tendon of lower back, initial encounter (principal); M25.512 Pain in left shoulder; I10 Essential (primary) hypertension; G89.29 Other chronic pain; W19.XXXA Unspecified fall, initial encounter; Y93.89 Activity, other specified; Y92.89 Other specified places as the place of occurrence of the external cause; Y99.8 Other external cause status
CPT/HCPCS: 72110; 99284

== ENCOUNTER → 2017-05-26 | Outpatient (CLI) | payer OTHER | END | disposition home or self-care (01) | LOC: CVU 11:49 | PROVIDERS: ATTEND Specialist | DX: C90.00 Multiple myeloma not having achieved remission (principal); C79.51 Secondary malignant neoplasm of bone; D50.9 Iron deficiency anemia, unspecified | CPT/HCPCS: 93306; 94010; 94726; 94729 ==

== ENCOUNTER → 2017-06-09 | Outpatient (CLI) | payer OTHER | END | disposition home or self-care (01) | LOC: CARD 16:44 | PROVIDERS: ATTEND Specialist | DX: C90.00 Multiple myeloma not having achieved remission (principal) | CPT/HCPCS: 93005 ==

== ENCOUNTER → 2017-07-14 | Outpatient (CLI) | payer OTHER ==
[2017-07-14 07:35] LABS: BASOPHILS # (AUTO) 0.05 x10^3/uL (0-0.1); BASOPHILS % (AUTO) 1 % (0-1); EOSINOPHILS # (AUTO) 0.18 x10^3/uL (0-0.4); EOSINOPHILS % (AUTO) 5 % (1-7); LYMPHOCYTES # (AUTO) 0.72 x10^3/uL (1-3.4); LYMPHOCYTES % (AUTO) 19 % (22-44); MD NO; MEAN CORPUSCULAR HEMOGLOBIN 29.1 pg (27.0-34.8); MEAN CORPUSCULAR HGB CONC 33.3 g/dL (32.4-35.8); MEAN CORPUSCULAR VOLUME 87.2 fL (80-100); MEAN PLATELET VOLUME 7.7 fL (7.4-10.4); MONOCYTES # (AUTO) 0.59 x10^3/uL (0.2-0.8); MONOCYTES % (AUTO) 16 % (2-9); NEUTROPHILS # (AUTO) 2.27 x10^3/uL (1.8-6.8); NEUTROPHILS % (AUTO) 60 % (42-75); PLATELET COUNT 340 x10^3/uL (130-400); RED BLOOD COUNT 4.69 x10^6/uL (3.82-5.3); RED CELL DISTRIBUTION WIDTH 19.7 % (9.6-15.2)
[2017-07-14 07:46] LABS: ALANINE AMINOTRANSFERASE 32 U/L (12-78); ALBUMIN 3.3 g/dL (3.4-5.0); ANION GAP 7 mmol/L (5-15); CALCIUM 9.6 mg/dL (8.5-10.1); CHLORIDE 106 mmol/L (98-107); CREATININE 0.94 mg/dL (0.55-1.02)
[2017-07-14 07:48] LABS: ALKALINE PHOSPHATASE 100 U/L (45-117); BILIRUBIN,TOTAL 0.4 mg/dL (0.2-1.0); TOTAL PROTEIN 6.6 g/dL (6.4-8.2)
== END ==
LOC: LAB 07:11
PROVIDERS: ATTEND Specialist
DX: C79.51 Secondary malignant neoplasm of bone (principal); C90.00 Multiple myeloma not having achieved remission; D50.9 Iron deficiency anemia, unspecified
CPT/HCPCS: 36415; 80053; 82232; 82784; 83883; 84155; 84156; 84165; 84166; 85025; 86334; 86335

== ENCOUNTER 2017-07-15 10:37 | Day surgery (SDC) | payer OTHER ==
[~2017-07-15] VITALS: Ht 157.5 cm; Wt 93.0 kg
[2017-07-15 10:52] VITALS: BP 146/90
[2017-07-15] MEDS ORDERED: LACTATED RINGERS 1,000 ML IV SCH (10:57)
[2017-07-15] MEDS ORDERED: PLEASE ENTER HEIGHT AND WEIGHT MC SCH (11:30)
[2017-07-15] MEDS ORDERED: MIDAZOLAM 1 MG/ML, 5ML ONE (12:44)
[2017-07-15] MEDS ORDERED: PROPOFOL 10 MG/ML, 20ML ONE (12:45)
== END 2017-07-15 15:00 ==
LOC: OUT 10:37 → EDSTATUS 12:45 → OUT 15:00
PROVIDERS: ATTEND Physician Assistant
DX: M75.112 Incomplete rotator cuff tear or rupture of left shoulder, not specified as traumatic (principal)
CPT/HCPCS: 73221; J2704; J7120

== ENCOUNTER 2017-12-25 06:26 | Day surgery (SDC) | payer OTHER ==
[~2017-12-25 06:26] MED LIST changes: +ACYC-114 PO; +ASPI-650 PO; +CALC-545 PO; +DEXA4TAB66 PO; -INDO50CA PO; +INDO50CA5 PO; +LENA15CA PO; +ONDA8TAB9 PO; +PROC25SU25 PR
[2017-12-25] MEDS ORDERED: LACTATED RINGERS 1,000 ML IV SCH (07:17)
[2017-12-25] MEDS ORDERED: ACETAMINOPHEN 500 MG TABLET PO ONE (07:30)
[2017-12-25] MEDS ORDERED: GABAPENTIN 300 MG CAPSULE PO ONE (07:30)
[2017-12-25] MEDS ORDERED: ONDANSETRON ODT 8 MG PO ONE (07:30)
[2017-12-25 07:43] VITALS: BP 119/82
[2017-12-25] MEDS ORDERED: FENTANYL PF 100 MCG/2ML ONE (08:26)
[2017-12-25] MEDS ORDERED: MIDAZOLAM 1 MG/ML, 5ML ONE (08:26)
[2017-12-25 08:32] LABS: BASOPHILS # (AUTO) 0.02 x10^3/uL (0-0.1); BASOPHILS % (AUTO) 0 % (0-1); EOSINOPHILS # (AUTO) 0.12 x10^3/uL (0-0.4); EOSINOPHILS % (AUTO) 2 % (1-7); LYMPHOCYTES # (AUTO) 0.74 x10^3/uL (1-3.4); LYMPHOCYTES % (AUTO) 9 % (22-44); MD NO; MEAN CORPUSCULAR HEMOGLOBIN 32.8 pg (27.0-34.8); MEAN CORPUSCULAR HGB CONC 33.8 g/dL (32.4-35.8); MONOCYTES # (AUTO) 0.56 x10^3/uL (0.2-0.8); MONOCYTES % (AUTO) 7 % (2-9); NEUTROPHILS # (AUTO) 6.71 x10^3/uL (1.8-6.8); NEUTROPHILS % (AUTO) 82 % (42-75); PLATELET COUNT 251 x10^3/uL (130-400); RED CELL DISTRIBUTION WIDTH 13.3 % (9.6-15.2)
[2017-12-25] MEDS ORDERED: PROPOFOL 10 MG/ML, 20ML ONE (08:59)
[2017-12-25] MEDS ORDERED: SUCCINYLCHOLINE 20 MG/ML, 10ML ONE (08:59)
[2017-12-25] MEDS ORDERED: DEXAMETHASONE 4 MG/ML, 1ML ONE (08:59)
[2017-12-25] MEDS ORDERED: LIDOCAINE-MPF 1%, 5ML ONE ×2 (09:02)
[2017-12-25] MEDS: HYDROmorphone 1 MG/ML, 1ML IV PRN ×4 (09:42→10:11)
[2017-12-25] MEDS ORDERED: HYDROmorphone 2 MG/ML, 1ML ONE (09:44)
[2017-12-25] MEDS ORDERED: SCOPOLAMINE PATCH, 1.5MG PATCH.TD72 TD PRN (10:00)
[2017-12-25] MEDS ORDERED: FENTANYL PF 100 MCG/2ML IV PRN (10:00)
[2017-12-25] MEDS ORDERED: OXYcodone 5 MG/5 ML ORAL.SOL UDC PO PRN (10:00)
[2017-12-25] MEDS ORDERED: LABETALOL 5MG/ML, 20ML IV PRN (10:00)
[2017-12-25] MEDS ORDERED: PLEASE ENTER HEIGHT AND WEIGHT MC SCH (10:00)
[2017-12-25] MEDS ORDERED: ONDANSETRON 2MG/ML, 2ML IV PRN (10:00)
[2017-12-25] MEDS ORDERED: MIDAZOLAM 1 MG/ML, 2ML IV PRN (10:00)
[2017-12-25] MEDS ORDERED: ALBUTEROL/IPRATROPIUM 2.5MG/0.5MG, 3 ML NPPB PRN (10:00)
[2017-12-25] MEDS ORDERED: PROMETHAZINE 25 MG SUPP PR PRN (10:00)
== END 2017-12-25 11:20 | disposition home or self-care (01) ==
LOC: OUT 06:26
PROVIDERS: ATTEND Specialist
DX: C90.00 Multiple myeloma not having achieved remission (principal); K21.9 Gastro-esophageal reflux disease without esophagitis; D50.9 Iron deficiency anemia, unspecified; I25.10 Atherosclerotic heart disease of native coronary artery without angina pectoris; F41.9 Anxiety disorder, unspecified; Z93.1 Gastrostomy status; Z98.890 Other specified postprocedural states; Z90.710 Acquired absence of both cervix and uterus; Z90.49 Acquired absence of other specified parts of digestive tract; Z90.3 Acquired absence of stomach [part of]; Z88.6 Allergy status to analgesic agent
CPT/HCPCS: 36415; 38222; 77012; 85025; 85060; 85097; 88305; 88311; 88313; 93005; J0330; J1100; J1170; J2250; J2704; J3010; J7120; Q0162; 88237; 88264; 88280; 88360

== ENCOUNTER 2018-02-13 21:12 | Inpatient (IN) | payer OTHER ==
[~2018-02-13] VITALS: Ht 157.5 cm; Wt 86.9 kg
[2018-02-13 22:17] LABS: BASOPHILS # (AUTO) 0.01 x10^3/uL (0-0.1); BASOPHILS % (AUTO) 0 % (0-1); EOSINOPHILS # (AUTO) 0.02 x10^3/uL (0-0.4); EOSINOPHILS % (AUTO) 0 % (1-7); LYMPHOCYTES # (AUTO) 0.42 x10^3/uL (1-3.4); LYMPHOCYTES % (AUTO) 11 % (22-44); MD NO; MEAN CORPUSCULAR HEMOGLOBIN 31.9 pg (27.0-34.8); MEAN CORPUSCULAR HGB CONC 33.6 g/dL (32.4-35.8); MEAN CORPUSCULAR VOLUME 95.1 fL (80-100); MONOCYTES # (AUTO) 0.24 x10^3/uL (0.2-0.8); MONOCYTES % (AUTO) 6 % (2-9); NEUTROPHILS # (AUTO) 3.19 x10^3/uL (1.8-6.8); NEUTROPHILS % (AUTO) 82 % (42-75); PLATELET COUNT 170 x10^3/uL (130-400); RED BLOOD COUNT 4.03 x10^6/uL (3.82-5.3); RED CELL DISTRIBUTION WIDTH 14.7 % (9.6-15.2)
[2018-02-13] MEDS ORDERED: SULF1TAB24 PO (22:19)
[2018-02-13 22:27] LABS: ANION GAP 9 mmol/L (5-15); CALCIUM 7.9 mg/dL (8.5-10.1); CHLORIDE 104 mmol/L (98-107); CREATININE 0.93 mg/dL (0.55-1.02)
[2018-02-13 22:31] LABS: TROPONIN I < 0.015 ng/mL (0.000-0.045)
[2018-02-13] MEDS ORDERED: OMNIPAQUE 350 MG/ML, 100ML BOTTLE ONE (23:40)
[2018-02-14 00:20] LABS: RAPID INFLUENZA A Negative (Negative); RAPID INFLUENZA B Negative (Negative)
[2018-02-14] MEDS ORDERED: AZITHROMYCIN 500 MG in SODIUM CHLORIDE 0.9% 250 ML IV ONE (00:30)
[2018-02-14] MEDS ORDERED: CEFTRIAXONE PMX 1GM/50ML 50 ML IV SCH (00:30)
[2018-02-14] MEDS ORDERED: CEFTRIAXONE PMX 1GM/50ML 50 ML ONE (00:35)
[2018-02-14] MEDS ORDERED: LORA1TAB PO (00:44)
[2018-02-14] MEDS ORDERED: VENL75CA PO (00:44)
[2018-02-14] MEDS ORDERED: PROC10TA78 PO (00:47)
[2018-02-14] MEDS ORDERED: ZOLP10TA PO (00:47)
[2018-02-14] MEDS ORDERED: POLY17PO5 PO (02:01)
[2018-02-14 02:04] VITALS: BP 101/71
[2018-02-14] MEDS ORDERED: OXYC5TAB3 PO (02:24)
[2018-02-14] MEDS ORDERED: OXYcodone IR 5MG TABLET PO ONE (02:30)
[2018-02-14] MEDS: FLUCONAZOLE 400 MG/200 ML 200 ML IV SCH (02:42)
[2018-02-14] MEDS ORDERED: NS + 20MEQ KCL 1,000 ML IV SCH (05:39)
[2018-02-14] MEDS ORDERED: [UNRECOGNIZED DRUG - OTHER] PO SCH (06:00)
[2018-02-14] MEDS ORDERED: ZOLPIDEM 10MG TABLET PO PRN (06:00)
[2018-02-14] MEDS ORDERED: FLUCONAZOLE 400 MG/200 ML 200 ML IV SCH (06:00)
[2018-02-14] MEDS ORDERED: POLYETHYLENE GLYCOL 17 GM PACKET PO PRN (06:00)
[2018-02-14] MEDS ORDERED: PROCHLORPERAZINE 10MG TABLET PO SCH (06:00)
[2018-02-14] MEDS ORDERED: morphine SULFATE 10 MG/ML, 1ML IVPush PRN (06:00)
[2018-02-14] MEDS ORDERED: ACETAMINOPHEN 325 MG TABLET PO PRN (06:00)
[2018-02-14] MEDS ORDERED: SULFAMETHOXAZOLE PO SCH (06:00)
[2018-02-14] MEDS ORDERED: ONDANSETRON 2MG/ML, 2ML IVPush PRN (06:00)
[2018-02-14] MEDS ORDERED: TRIMETHOPRIM PO SCH (06:00)
[2018-02-14] MEDS ORDERED: CYAN500011 PO (06:15)
[2018-02-14] MEDS: ASPIRIN 325 MG TABLET EC PO SCH (06:15)
[2018-02-14] MEDS: GUAIFENESIN/COD200MG-20MG/10ML LIQUID PO PRN ×2 (06:26→16:03)
[2018-02-14] MEDS ORDERED: PROCHLORPERAZINE MC SCH (06:30)
[2018-02-14] MEDS ORDERED: TRIMETHOPRIM MC SCH (06:30)
[2018-02-14] MEDS ORDERED: SULFAMETHOXAZOLE MC SCH (06:30)
[2018-02-14 06:58] VITALS: BP 101/57
[2018-02-14] MEDS ORDERED: PROCHLORPERAZINE 10MG TABLET PO PRN (07:00)
[2018-02-14] MEDS: MAGNESIUM OXIDE 400 MG TABLET PO SCH (08:22)
[2018-02-14] MEDS: FAMOTIDINE 20 MG TABLET PO SCH ×2 (08:22→20:07)
[2018-02-14] MEDS: TOLTERODINE LA 4MG CAP.ER.24H PO SCH (08:22)
[2018-02-14] MEDS: ACYCLOVIR 400 MG TABLET PO SCH ×2 (08:22→20:06)
[2018-02-14] MEDS: VENLAFAXINE 75 MG CAP ER PO SCH (08:22)
[2018-02-14] MEDS: OXYcodone IR 5MG TABLET PO PRN ×3 (08:22→21:46)
[2018-02-14] MEDS ORDERED: TEMPLATE NON-FORMULARY MED. (Biotin** 5 MG) PO SCH (09:00)
[2018-02-14] MEDS ORDERED: TOLTERODINE LA 2MG CAP.ER.24H PO SCH (09:00)
[2018-02-14 12:02] VITALS: BP 106/62
[2018-02-14] MEDS ORDERED: CALCIUM CARBONATE 500 MG TABLET ONE (15:52)
[2018-02-14] MEDS: CALCIUM CARBONATE 500 MG TABLET PO SCH (15:56)
[2018-02-14 19:00] VITALS: BP 121/78
[2018-02-14] MEDS: POLYETHYLENE GLYCOL 17 GM PACKET PO SCH (20:08)
[2018-02-14] MEDS: LORazepam 1MG TABLET PO PRN (21:46)
[2018-02-15] MEDS: AZITHROMYCIN 500 MG in SODIUM CHLORIDE 0.9% 250 ML IV SCH (00:14)
[2018-02-15] MEDS: FLUCONAZOLE 400 MG/200 ML 200 ML IV SCH (01:36)
[2018-02-15 02:20] VITALS: BP 109/73
[2018-02-15] MEDS: CEFTRIAXONE PMX 1GM/50ML 50 ML IV SCH (04:02)
[2018-02-15] MEDS: ASPIRIN 325 MG TABLET EC PO SCH (05:49)
[2018-02-15] MEDS: OXYcodone IR 5MG TABLET PO PRN ×3 (05:51→20:56)
[2018-02-15 06:48] VITALS: BP 117/75
[2018-02-15 07:43] LABS: ANION GAP 5 mmol/L (5-15); CALCIUM 7.7 mg/dL (8.5-10.1); CHLORIDE 108 mmol/L (98-107); CREATININE 0.84 mg/dL (0.55-1.02)
[2018-02-15] MEDS: MAGNESIUM OXIDE 400 MG TABLET PO SCH (08:06)
[2018-02-15] MEDS: TOLTERODINE LA 4MG CAP.ER.24H PO SCH (08:06)
[2018-02-15] MEDS: ACYCLOVIR 400 MG TABLET PO SCH ×2 (08:06→20:56)
[2018-02-15] MEDS: VENLAFAXINE 75 MG CAP ER PO SCH (08:06)
[2018-02-15] MEDS: CALCIUM CARBONATE 500 MG TABLET PO SCH (08:06)
[2018-02-15] MEDS: FAMOTIDINE 20 MG TABLET PO SCH ×2 (08:06→20:56)
[2018-02-15 08:07] LABS: MEAN CORPUSCULAR HEMOGLOBIN 31.2 pg (27.0-34.8); MEAN CORPUSCULAR HGB CONC 32.7 g/dL (32.4-35.8); MEAN CORPUSCULAR VOLUME 95.4 fL (80-100); MEAN PLATELET VOLUME 9.1 fL (7.4-10.4); PLATELET COUNT 176 x10^3/uL (130-400); RED BLOOD COUNT 3.84 x10^6/uL (3.82-5.3); RED CELL DISTRIBUTION WIDTH 14.6 % (9.6-15.2)
[2018-02-15 08:42] LABS: BASOPHILS # (AUTO) 0.03 x10^3/uL (0-0.1); BASOPHILS % (AUTO) 1 % (0-1); EOSINOPHILS # (AUTO) 0.11 x10^3/uL (0-0.4); EOSINOPHILS % (AUTO) 4 % (1-7); LYMPHOCYTES # (AUTO) 0.46 x10^3/uL (1-3.4); LYMPHOCYTES % (AUTO) 16 % (22-44); MD SCAN; MONOCYTES % (AUTO) 10 % (2-9); NEUTROPHILS % (AUTO) 69 % (42-75)
[2018-02-15] MEDS: GUAIFENESIN/COD200MG-20MG/10ML LIQUID PO PRN (09:39)
[2018-02-15 12:46] VITALS: BP 113/76
[2018-02-15] MEDS ORDERED: BISACODYL 10 MG SUPP PR PRN (17:00)
[2018-02-15 18:37] VITALS: BP 105/72
[2018-02-15] MEDS: POLYETHYLENE GLYCOL 17 GM PACKET PO SCH (20:55)
[2018-02-15] MEDS: LORazepam 1MG TABLET PO PRN (20:56)
[2018-02-16] MEDS: AZITHROMYCIN 500 MG in SODIUM CHLORIDE 0.9% 250 ML IV SCH (00:04)
[2018-02-16] MEDS: FLUCONAZOLE 400 MG/200 ML 200 ML IV SCH (01:26)
[2018-02-16] MEDS: CEFTRIAXONE PMX 1GM/50ML 50 ML IV SCH (04:15)
[2018-02-16 04:25] VITALS: BP 117/75
[2018-02-16 05:05] LABS: BASOPHILS # (AUTO) 0.03 x10^3/uL (0-0.1); BASOPHILS % (AUTO) 1 % (0-1); EOSINOPHILS # (AUTO) 0.15 x10^3/uL (0-0.4); EOSINOPHILS % (AUTO) 4 % (1-7); LYMPHOCYTES # (AUTO) 0.65 x10^3/uL (1-3.4); LYMPHOCYTES % (AUTO) 19 % (22-44); MD NO; MEAN CORPUSCULAR HEMOGLOBIN 31.7 pg (27.0-34.8); MEAN CORPUSCULAR HGB CONC 33.2 g/dL (32.4-35.8); MEAN CORPUSCULAR VOLUME 95.3 fL (80-100); MEAN PLATELET VOLUME 9.2 fL (7.4-10.4); MONOCYTES # (AUTO) 0.36 x10^3/uL (0.2-0.8); MONOCYTES % (AUTO) 10 % (2-9); NEUTROPHILS # (AUTO) 2.28 x10^3/uL (1.8-6.8); NEUTROPHILS % (AUTO) 66 % (42-75); PLATELET COUNT 201 x10^3/uL (130-400); RED BLOOD COUNT 3.91 x10^6/uL (3.82-5.3); RED CELL DISTRIBUTION WIDTH 14.5 % (9.6-15.2)
[2018-02-16] MEDS: ASPIRIN 325 MG TABLET EC PO SCH (05:38)
[2018-02-16] MEDS: OXYcodone IR 5MG TABLET PO PRN ×4 (05:38→21:23)
[2018-02-16 06:45] VITALS: BP 115/69
[2018-02-16] MEDS: MAGNESIUM OXIDE 400 MG TABLET PO SCH (08:24)
[2018-02-16] MEDS: TOLTERODINE LA 4MG CAP.ER.24H PO SCH (08:24)
[2018-02-16] MEDS: ACYCLOVIR 400 MG TABLET PO SCH ×2 (08:24→21:16)
[2018-02-16] MEDS: VENLAFAXINE 75 MG CAP ER PO SCH (08:24)
[2018-02-16] MEDS: FAMOTIDINE 20 MG TABLET PO SCH ×2 (08:24→21:16)
[2018-02-16] MEDS: CALCIUM CARBONATE 500 MG TABLET PO SCH (08:24)
[2018-02-16] MEDS: DOCUSATE 100 MG CAPSULE PO PRN (08:28)
[2018-02-16] MEDS: LORazepam 1MG TABLET PO PRN ×2 (12:34→21:23)
[2018-02-16] MEDS: CEFDINIR 300 MG CAPSULE PO SCH ×2 (12:34→21:16)
[2018-02-16] MEDS: FLUCONAZOLE 200 MG TABLET PO SCH (12:35)
[2018-02-16 13:50] VITALS: BP 115/69
[2018-02-16 18:43] VITALS: BP 126/84
[2018-02-16] MEDS: POLYETHYLENE GLYCOL 17 GM PACKET PO SCH (21:16)
[2018-02-17] MEDS: GUAIFENESIN/COD200MG-20MG/10ML LIQUID PO PRN ×2 (03:42→10:50)
[2018-02-17 03:50] VITALS: BP 108/70
[2018-02-17] MEDS: OXYcodone IR 5MG TABLET PO PRN (05:59)
[2018-02-17] MEDS: ASPIRIN 325 MG TABLET EC PO SCH (05:59)
[2018-02-17 07:35] VITALS: BP 106/70
[2018-02-17] MEDS ORDERED: CEFD300C37 PO (08:04)
[2018-02-17] MEDS ORDERED: FLUC200T PO (08:04)
[2018-02-17] MEDS: CEFDINIR 300 MG CAPSULE PO SCH (08:11)
[2018-02-17] MEDS: VENLAFAXINE 75 MG CAP ER PO SCH (08:11)
[2018-02-17] MEDS: CALCIUM CARBONATE 500 MG TABLET PO SCH (08:11)
[2018-02-17] MEDS: ACYCLOVIR 400 MG TABLET PO SCH (08:11)
[2018-02-17] MEDS: FLUCONAZOLE 200 MG TABLET PO SCH (08:11)
[2018-02-17] MEDS: TOLTERODINE LA 4MG CAP.ER.24H PO SCH (08:11)
[2018-02-17] MEDS: FAMOTIDINE 20 MG TABLET PO SCH (08:11)
[2018-02-17] MEDS: DOCUSATE 100 MG CAPSULE PO PRN (08:12)
[2018-02-17] MEDS: MAGNESIUM OXIDE 400 MG TABLET PO SCH (08:12)
== END 2018-02-17 11:27 | disposition home or self-care (01) | DRG 193 ==
LOC: ED 22:03 → SUATTDRO 23:09 → EDIP 02-14 00:35 → 3NW 02-14 01:47
PROVIDERS: ADMIT Family Medicine; ATTEND Internal Medicine
DX: J18.1 Lobar pneumonia, unspecified organism (principal); J96.01 Acute respiratory failure with hypoxia; C90.00 Multiple myeloma not having achieved remission; E44.1 Mild protein-calorie malnutrition; Z94.84 Stem cells transplant status; B02.9 Zoster without complications; I10 Essential (primary) hypertension; K27.9 Peptic ulcer, site unspecified, unspecified as acute or chronic, without hemorrhage or perforation; N32.81 Overactive bladder; Z80.3 Family history of malignant neoplasm of breast; Z87.11 Personal history of peptic ulcer disease; Z90.710 Acquired absence of both cervix and uterus; Z98.84 Bariatric surgery status; Z90.49 Acquired absence of other specified parts of digestive tract; Z79.82 Long term (current) use of aspirin; Z92.21 Personal history of antineoplastic chemotherapy; Z88.5 Allergy status to narcotic agent; Z88.8 Allergy status to other drugs, medicaments and biological substances
CPT/HCPCS: 36415; 71045; 71275; 80048; 82040; 83605; 83735; 83880; 84100; 84484; 85025; 87040; 87070; 87205; 87400; 93005; 96365; 96368; G0378; J0456; J0696; J1450; J3480; Q9967; J7050

== ENCOUNTER → 2018-03-10 | Outpatient (CLI) | payer OTHER ==
[~2018-03-10] MED LIST changes: +CYAN500011 PO; +FLUC200T PO; +LORA1TAB PO; +POLY17PO5 PO; +PROC10TA78 PO; +SULF1TAB24 PO; +VENL75CA PO
== END | disposition home or self-care (01) ==
LOC: CFH 08:04
PROVIDERS: ATTEND Family Medicine
DX: M85.89 Other specified disorders of bone density and structure, multiple sites (principal); Z78.0 Asymptomatic menopausal state
CPT/HCPCS: 77080

== ENCOUNTER → 2018-05-04 | Outpatient (CLI) | payer OTHER ==
[~2018-05-04] MED LIST changes: +DULO60CA7 PO; -MULT-224 PO; +MULT-642 PO
[2018-05-04 10:56] LABS: BASOPHILS # (AUTO) 0.05 x10^3/uL (0-0.1); BASOPHILS % (AUTO) 1 % (0-1); EOSINOPHILS # (AUTO) 0.29 x10^3/uL (0-0.4); EOSINOPHILS % (AUTO) 7 % (1-7); LYMPHOCYTES # (AUTO) 0.58 x10^3/uL (1-3.4); LYMPHOCYTES % (AUTO) 14 % (22-44); MD NO; MEAN CORPUSCULAR HEMOGLOBIN 30.2 pg (27.0-34.8); MEAN CORPUSCULAR HGB CONC 33.6 g/dL (32.4-35.8); MEAN CORPUSCULAR VOLUME 89.8 fL (80-100); MEAN PLATELET VOLUME 8.2 fL (7.4-10.4); MONOCYTES # (AUTO) 0.79 x10^3/uL (0.2-0.8); MONOCYTES % (AUTO) 19 % (2-9); NEUTROPHILS # (AUTO) 2.54 x10^3/uL (1.8-6.8); NEUTROPHILS % (AUTO) 60 % (42-75); PLATELET COUNT 200 x10^3/uL (130-400); RED BLOOD COUNT 4.26 x10^6/uL (3.82-5.3); RED CELL DISTRIBUTION WIDTH 15.7 % (9.6-15.2)
[2018-05-04 11:03] LABS: CHLORIDE 107 mmol/L (98-107)
[2018-05-04 11:11] LABS: ALANINE AMINOTRANSFERASE 116 U/L (12-78); ALBUMIN 3.2 g/dL (3.4-5.0); ALKALINE PHOSPHATASE 168 U/L (45-117); ANION GAP 5 mmol/L (5-15); BILIRUBIN,TOTAL 0.3 mg/dL (0.2-1.0); CALCIUM 8.4 mg/dL (8.5-10.1); CREATININE 1.03 mg/dL (0.55-1.02); TOTAL PROTEIN 6.6 g/dL (6.4-8.2)
== END | disposition home or self-care (01) ==
LOC: LAB 10:10
PROVIDERS: ATTEND Specialist
DX: D50.9 Iron deficiency anemia, unspecified (principal); Z85.830 Personal history of malignant neoplasm of bone
CPT/HCPCS: 36415; 80053; 82232; 82784; 83735; 83883; 84155; 84156; 84165; 84166; 85025; 86334; 86335

== ENCOUNTER 2018-05-29 10:30 | Inpatient (IN) | payer OTHER ==
[~2018-05-29] VITALS: Ht 157.5 cm; Wt 93.4 kg
[2018-05-29] MEDS ORDERED: PROM25TA10 PO (11:14)
[2018-05-29 11:44] LABS: BASOPHILS % (AUTO) 0 % (0-1); EOSINOPHILS % (AUTO) 3 % (1-7); LYMPHOCYTES # (AUTO) 0.14 x10^3/uL (1-3.4); LYMPHOCYTES % (AUTO) 3 % (22-44); MD NO; MEAN CORPUSCULAR HGB CONC 33.2 g/dL (32.4-35.8); MEAN CORPUSCULAR VOLUME 87.4 fL (80-100); MEAN PLATELET VOLUME 8.4 fL (7.4-10.4); MONOCYTES # (AUTO) 0.23 x10^3/uL (0.2-0.8); MONOCYTES % (AUTO) 6 % (2-9); NEUTROPHILS # (AUTO) 3.64 x10^3/uL (1.8-6.8); NEUTROPHILS % (AUTO) 89 % (42-75); PLATELET COUNT 162 x10^3/uL (130-400); RED BLOOD COUNT 4.34 x10^6/uL (3.82-5.3); RED CELL DISTRIBUTION WIDTH 16.2 % (9.6-15.2)
[2018-05-29 11:51] LABS: ANION GAP 5 mmol/L (5-15); CALCIUM 8.4 mg/dL (8.5-10.1); CHLORIDE 103 mmol/L (98-107)
[2018-05-29 11:56] LABS: ALANINE AMINOTRANSFERASE 63 U/L (12-78); ALKALINE PHOSPHATASE 119 U/L (45-117); BILIRUBIN,TOTAL 0.6 mg/dL (0.2-1.0); CREATININE 0.91 mg/dL (0.55-1.02); TOTAL PROTEIN 6.2 g/dL (6.4-8.2); TROPONIN I < 0.015 ng/mL (0.000-0.045)
[2018-05-29] MEDS ORDERED: ACETAMINOPHEN 500 MG TABLET PO ONE (12:00)
[2018-05-29] MEDS ORDERED: CEFTRIAXONE PMX 1GM/50ML 50 ML IV ONE (12:00)
[2018-05-29] MEDS ORDERED: CEFTRIAXONE PMX 1GM/50ML 50 ML ONE (12:24)
[2018-05-29] MEDS ORDERED: ACETAMINOPHEN 500 MG TABLET ONE (12:25)
--- NOTE | 2018-05-29 12:53 | NUR ---
PT OOB AND AMBULATED TO BATHROOM, UPRIGHT STEADY GAIT.
[2018-05-29] MEDS ORDERED: OMNIPAQUE 350 MG/ML, 100ML BOTTLE ONE (13:27)
[2018-05-29] MEDS ORDERED: ONDANSETRON 2MG/ML, 2ML ONE (13:30)
[2018-05-29] MEDS ORDERED: HYDROmorphone 1 MG/ML, 1ML AMP ONE (13:30)
[2018-05-29] MEDS ORDERED: ONDANSETRON 2MG/ML, 2ML IVPush ONE (13:30)
--- NOTE | 2018-05-29 13:50 | NUR ---
PT MED NOTED FOR PEREZ PAIN, WITH EFFECT.
[2018-05-29] MEDS ORDERED: HYDROmorphone 1 MG/ML, 1ML AMP IV ONE ×2 (14:00→22:00)
[2018-05-29] MEDS ORDERED: TRAZODONE 50MG TABLET PO PRN (15:30)
[2018-05-29] MEDS ORDERED: PROCHLORPERAZINE 10MG TABLET PO PRN (15:30)
[2018-05-29] MEDS ORDERED: hydrALAzine 20 MG/ML, 1ML IVPush PRN (15:30)
[2018-05-29] MEDS ORDERED: LABETALOL 5MG/ML, 20ML IVPush PRN (15:30)
[2018-05-29] MEDS ORDERED: PROMETHAZINE 25MG TABLET PO PRN (15:30)
[2018-05-29] MEDS ORDERED: ZOLPIDEM 10MG TABLET PO PRN (15:30)
[2018-05-29 16:26] LABS: HCT (SEDRATE) 36.8 % (34.6-47.8)
[2018-05-29 16:27] LABS: BASOPHILS % (AUTO) 0 % (0-1); EOSINOPHILS # (AUTO) 0.03 x10^3/uL (0-0.4); EOSINOPHILS % (AUTO) 1 % (1-7); LYMPHOCYTES # (AUTO) 0.14 x10^3/uL (1-3.4); LYMPHOCYTES % (AUTO) 4 % (22-44); MD NO; MEAN CORPUSCULAR HEMOGLOBIN 29.1 pg (27.0-34.8); MEAN CORPUSCULAR HGB CONC 32.7 g/dL (32.4-35.8); MEAN CORPUSCULAR VOLUME 89.2 fL (80-100); MONOCYTES # (AUTO) 0.29 x10^3/uL (0.2-0.8); MONOCYTES % (AUTO) 8 % (2-9); NEUTROPHILS # (AUTO) 3.06 x10^3/uL (1.8-6.8); NEUTROPHILS % (AUTO) 87 % (42-75); PLATELET COUNT 143 x10^3/uL (130-400); RED BLOOD COUNT 4.15 x10^6/uL (3.82-5.3); RED CELL DISTRIBUTION WIDTH 16.3 % (9.6-15.2)
[2018-05-29] MEDS ORDERED: ALBUTEROL SULFATE 2.5 MG/3 ML NPPB PRN (16:30)
[2018-05-29 16:38] LABS: RAPID INFLUENZA A POSITIVE (Negative); RAPID INFLUENZA B Negative (Negative)
[2018-05-29 16:39] LABS: ANION GAP 7 mmol/L (5-15); CALCIUM 8.3 mg/dL (8.5-10.1); CHLORIDE 102 mmol/L (98-107); CREATININE 0.97 mg/dL (0.55-1.02)
[2018-05-29 16:48] LABS: FREE T4 (FREE THYROXINE) 1.22 ng/dL (0.76-1.46); THYROID STIMULATING HORMONE 0.284 mIU/L (0.358-3.740)
[2018-05-29 17:38] VITALS: BP 101/68
[2018-05-29] MEDS: AZITHROMYCIN 500 MG in SODIUM CHLORIDE 0.9% 250 ML IV SCH (17:41)
[2018-05-29] MEDS: LACTATED RINGERS 1,000 ML IV SCH (17:42)
[2018-05-29] MEDS: PANTOPRAZOLE 20MG TABLET PO SCH (17:42)
[2018-05-29] MEDS: ACYCLOVIR 400 MG TABLET PO SCH ×2 (17:42→20:26)
[2018-05-29] MEDS: GUAIFENESIN/DM 200-20MG, 10ML UDC PO PRN (18:18)
[2018-05-29] MEDS: OXYcodone IR 5MG TABLET PO PRN (18:22)
[2018-05-29] MEDS: ACETAMINOPHEN 325 MG TABLET PO PRN (19:25)
[2018-05-29 20:32] VITALS: BP 105/69
[2018-05-29] MEDS: POLYETHYLENE GLYCOL 17 GM PACKET PO SCH (20:47)
[2018-05-29] MEDS ORDERED: AZITHROMYCIN 500 MG TABLET PO ONE (21:00)
[2018-05-29] MEDS ORDERED: DOCU-131 PO (21:15)
[2018-05-29] MEDS ORDERED: HYDROmorphone 1 MG/ML, 1ML AMP IM ONE (21:30)
[2018-05-29] MEDS: FAMOTIDINE 20 MG TABLET PO SCH (21:41)
[2018-05-29] MEDS: OSELTAMIVIR 75 MG CAPSULE PO SCH (21:41)
[2018-05-29] MEDS ORDERED: HYDROmorphone 2 MG/ML, 1ML ONE (22:01)
[2018-05-29] MEDS: DOCUSATE 100 MG CAPSULE PO PRN (22:03)
[2018-05-29] MEDS: ENOXAPARIN 40 MG/0.4 ML SQ SCH (22:08)
[2018-05-30] MEDS: OXYcodone IR 5MG TABLET PO PRN ×6 (00:10→22:27)
[2018-05-30] MEDS: ACETAMINOPHEN 325 MG TABLET PO PRN ×3 (00:10→08:14)
[2018-05-30] MEDS: GUAIFENESIN/DM 200-20MG, 10ML UDC PO PRN ×3 (00:11→21:11)
[2018-05-30] MEDS: CEFTRIAXONE PMX 1GM/50ML 50 ML IV SCH ×2 (00:11→13:15)
[2018-05-30] MEDS: LACTATED RINGERS 1,000 ML IV SCH ×2 (01:01→16:50)
[2018-05-30 03:50] VITALS: BP 111/74
[2018-05-30] MEDS: PANTOPRAZOLE 20MG TABLET PO SCH (06:20)
[2018-05-30 07:26] VITALS: BP 68/45
[2018-05-30 07:30] VITALS: BP 93/60
[2018-05-30] MEDS: ACYCLOVIR 400 MG TABLET PO SCH ×2 (08:14→21:04)
[2018-05-30] MEDS: FAMOTIDINE 20 MG TABLET PO SCH ×2 (08:14→21:05)
[2018-05-30] MEDS: ASPIRIN 325 MG TABLET EC PO SCH (08:14)
[2018-05-30] MEDS: CYANOCOBALAMIN 1,000 MCG TABLET PO SCH (08:14)
[2018-05-30] MEDS: OSELTAMIVIR 75 MG CAPSULE PO SCH ×2 (08:14→21:04)
[2018-05-30] MEDS: CALCIUM/VITAMIN D3 250-125 TABLET PO SCH (08:14)
[2018-05-30] MEDS: TOLTERODINE LA 2MG CAP.ER.24H PO SCH (08:15)
[2018-05-30] MEDS: DULOXETINE 30 MG CAPSULE.DR PO SCH (08:15)
[2018-05-30] MEDS: CHOLECALCIFEROL 1,000 UNIT TABLET PO SCH (08:19)
[2018-05-30] MEDS ORDERED: ONDANSETRON ODT 4 MG ONE (08:29)
[2018-05-30] MEDS: ONDANSETRON 2MG/ML, 2ML IVPush PRN (08:30)
[2018-05-30] MEDS ORDERED: TEMPLATE NON-FORMULARY MED. (Biotin** 5 MG) PO SCH (09:00)
[2018-05-30] MEDS: VITAMIN K2 40 MCG HOMEMEDPO SCH (09:00)
[2018-05-30] MEDS ORDERED: LENALIDOMIDE 15 MG HOMEMEDPO SCH (09:00)
[2018-05-30] MEDS ORDERED: AZITHROMYCIN 500 MG TABLET PO SCH (09:00)
[2018-05-30 09:48] VITALS: BP 93/64
[2018-05-30 13:24] VITALS: BP 86/55
[2018-05-30] MEDS: AZITHROMYCIN 500 MG in SODIUM CHLORIDE 0.9% 250 ML IV SCH (16:37)
[2018-05-30 17:20] LABS: MD YES; MEAN CORPUSCULAR HEMOGLOBIN 29.9 pg (27.0-34.8); MEAN CORPUSCULAR HGB CONC 33.8 g/dL (32.4-35.8); MEAN CORPUSCULAR VOLUME 88.3 fL (80-100); MEAN PLATELET VOLUME 8.7 fL (7.4-10.4); PLATELET COUNT 109 x10^3/uL (130-400); RED BLOOD COUNT 4.12 x10^6/uL (3.82-5.3); RED CELL DISTRIBUTION WIDTH 16.1 % (9.6-15.2)
[2018-05-30 18:02] LABS: ANISOCYTOSIS 1+; BAND#(MANUAL) 0.11 x10^3/uL; BANDS%(MANUAL) 6 % (0-7); EOS#(MANUAL) 0.09 x10^3/uL (0.0-0.4); EOS% (MANUAL) 5 % (1-7); LYMPH#(MANUAL) 0.09 x10^3/uL (1-3.4); LYMPHS% (MANUAL) 5 % (22-44); MONOS#(MANUAL) 0.18 x10^3/uL (0.3-2.7); MONOS% (MANUAL) 10 % (2-9); SEG#(MANUAL) 1.33 x10^3/uL (1.8-6.8); SEGS% (MANUAL) 74 % (42-75)
[2018-05-30 18:03] LABS: <PLATELET ESTIMATE> DECREASED; <PLT MORPHOLOGY> NORMAL PLT MORPH
[2018-05-30 20:00] VITALS: BP 90/60
[2018-05-30] MEDS: DOCUSATE 100 MG CAPSULE PO PRN (21:04)
[2018-05-30] MEDS: POLYETHYLENE GLYCOL 17 GM PACKET PO SCH (21:05)
[2018-05-30] MEDS: ENOXAPARIN 40 MG/0.4 ML SQ SCH (21:07)
[2018-05-31] MEDS: CEFTRIAXONE PMX 1GM/50ML 50 ML IV SCH ×2 (00:11→13:02)
[2018-05-31] MEDS ORDERED: ALBUTEROL SULFATE 2.5 MG/3 ML ONE (00:17)
[2018-05-31] MEDS ORDERED: ALBUTEROL SULFATE 2.5 MG/3 ML NPPB PRN (00:30)
[2018-05-31 00:33] VITALS: BP 111/64
[2018-05-31] MEDS: LACTATED RINGERS 1,000 ML IV SCH ×3 (02:30→23:09)
[2018-05-31] MEDS: OXYcodone IR 5MG TABLET PO PRN ×5 (02:32→20:06)
[2018-05-31 05:03] LABS: ANION GAP 7 mmol/L (5-15); CALCIUM 7.4 mg/dL (8.5-10.1); CHLORIDE 104 mmol/L (98-107)
[2018-05-31 05:04] LABS: CREATININE 0.91 mg/dL (0.55-1.02)
[2018-05-31] MEDS: PANTOPRAZOLE 20MG TABLET PO SCH (06:28)
[2018-05-31] MEDS: GUAIFENESIN/DM 200-20MG, 10ML UDC PO PRN (06:28)
[2018-05-31 07:31] LABS: MEAN CORPUSCULAR HEMOGLOBIN 29.3 pg (27.0-34.8); MEAN CORPUSCULAR HGB CONC 32.9 g/dL (32.4-35.8); MEAN CORPUSCULAR VOLUME 89.2 fL (80-100); MEAN PLATELET VOLUME 9.3 fL (7.4-10.4); PLATELET COUNT 98 x10^3/uL (130-400); RED CELL DISTRIBUTION WIDTH 16.5 % (9.6-15.2)
[2018-05-31 07:53] VITALS: BP 91/52
[2018-05-31] MEDS: CHOLECALCIFEROL 1,000 UNIT TABLET PO SCH (08:09)
[2018-05-31] MEDS: TOLTERODINE LA 2MG CAP.ER.24H PO SCH (08:09)
[2018-05-31] MEDS: VITAMIN K2 40 MCG HOMEMEDPO SCH (08:10)
[2018-05-31] MEDS: CYANOCOBALAMIN 1,000 MCG TABLET PO SCH (08:10)
[2018-05-31] MEDS: DULOXETINE 30 MG CAPSULE.DR PO SCH (08:10)
[2018-05-31] MEDS: CALCIUM/VITAMIN D3 250-125 TABLET PO SCH (08:10)
[2018-05-31] MEDS: ACYCLOVIR 400 MG TABLET PO SCH ×2 (08:10→20:06)
[2018-05-31] MEDS: OSELTAMIVIR 75 MG CAPSULE PO SCH ×2 (08:10→20:06)
[2018-05-31] MEDS: ASPIRIN 325 MG TABLET EC PO SCH (08:10)
[2018-05-31] MEDS: FAMOTIDINE 20 MG TABLET PO SCH ×2 (08:10→20:06)
[2018-05-31 08:15] LABS: BASOPHILS % (AUTO) 0 % (0-1); EOSINOPHILS # (AUTO) 0.13 x10^3/uL (0-0.4); EOSINOPHILS % (AUTO) 9 % (1-7); LYMPHOCYTES % (AUTO) 7 % (22-44); MD SCAN; MONOCYTES # (AUTO) 0.22 x10^3/uL (0.2-0.8); MONOCYTES % (AUTO) 15 % (2-9); NEUTROPHILS # (AUTO) 1.07 x10^3/uL (1.8-6.8); NEUTROPHILS % (AUTO) 70 % (42-75)
[2018-05-31 08:39] LABS: BAND#(MANUAL) 0.03 x10^3/uL; BANDS%(MANUAL) 2 % (0-7); EOS#(MANUAL) 0.21 x10^3/uL (0.0-0.4); EOS% (MANUAL) 14 % (1-7); LYMPH#(MANUAL) 0.09 x10^3/uL (1-3.4); LYMPHS% (MANUAL) 6 % (22-44); MONOS#(MANUAL) 0.12 x10^3/uL (0.3-2.7); MONOS% (MANUAL) 8 % (2-9); SEG#(MANUAL) 1.05 x10^3/uL (1.8-6.8); SEGS% (MANUAL) 70 % (42-75)
[2018-05-31 08:40] LABS: <PLATELET ESTIMATE> DECREASED; <PLT MORPHOLOGY> NORMAL PLT MORPH; ANISOCYTOSIS 1+; OVALOCYTES 1+
[2018-05-31] MEDS: GUAIFENESIN/COD200MG-20MG/10ML LIQUID PO PRN ×2 (13:02→20:05)
[2018-05-31 14:37] VITALS: BP 99/66
[2018-05-31] MEDS: AZITHROMYCIN 500 MG in SODIUM CHLORIDE 0.9% 250 ML IV SCH (16:03)
[2018-05-31] MEDS: ONDANSETRON 2MG/ML, 2ML IVPush PRN (17:49)
[2018-05-31] MEDS: TBO-FILGRASTIM 480 MCG/0.8 ML SQ SCH (20:03)
[2018-05-31] MEDS: ENOXAPARIN 40 MG/0.4 ML SQ SCH (20:03)
[2018-05-31] MEDS: POLYETHYLENE GLYCOL 17 GM PACKET PO SCH (20:07)
[2018-05-31 20:30] VITALS: BP 102/72
[2018-05-31] MEDS: LORazepam 1MG TABLET PO PRN (20:32)
[2018-06-01] MEDS: OXYcodone IR 5MG TABLET PO PRN ×5 (00:02→22:00)
[2018-06-01] MEDS: CEFTRIAXONE PMX 1GM/50ML 50 ML IV SCH ×2 (01:21→12:44)
[2018-06-01 01:26] VITALS: BP 93/60
[2018-06-01] MEDS: GUAIFENESIN/COD200MG-20MG/10ML LIQUID PO PRN ×2 (05:09→22:00)
[2018-06-01 05:49] LABS: ANION GAP 4 mmol/L (5-15); CALCIUM 7.5 mg/dL (8.5-10.1); CHLORIDE 107 mmol/L (98-107); CREATININE 0.84 mg/dL (0.55-1.02)
[2018-06-01 05:51] LABS: MEAN CORPUSCULAR HEMOGLOBIN 29.2 pg (27.0-34.8); MEAN CORPUSCULAR HGB CONC 32.9 g/dL (32.4-35.8); MEAN CORPUSCULAR VOLUME 88.9 fL (80-100); MEAN PLATELET VOLUME 9.2 fL (7.4-10.4); PLATELET COUNT 106 x10^3/uL (130-400); RED BLOOD COUNT 4.08 x10^6/uL (3.82-5.3); RED CELL DISTRIBUTION WIDTH 16.1 % (9.6-15.2)
[2018-06-01] MEDS: DOCUSATE 100 MG CAPSULE PO PRN (06:11)
[2018-06-01] MEDS: PANTOPRAZOLE 20MG TABLET PO SCH (06:11)
[2018-06-01 06:27] LABS: MD YES
[2018-06-01 06:28] LABS: BAND#(MANUAL) 0.56 x10^3/uL; BANDS%(MANUAL) 20 % (0-7); SEG#(MANUAL) 1.57 x10^3/uL (1.8-6.8); SEGS% (MANUAL) 56 % (42-75)
[2018-06-01 06:29] LABS: EOS% (MANUAL) 7 % (1-7); LYMPH#(MANUAL) 0.28 x10^3/uL (1-3.4); LYMPHS% (MANUAL) 10 % (22-44); METAMYELOCYTES# (MANUAL) 0.06 x10^3/uL (0-0); METAMYELOCYTES% (MANUAL) 2 % (0-1); MONOS#(MANUAL) 0.14 x10^3/uL (0.3-2.7); MONOS% (MANUAL) 5 % (2-9)
[2018-06-01 06:30] LABS: PMNS WITH VACUOLES 1+
[2018-06-01 06:33] LABS: <PLATELET ESTIMATE> DECREASED; <PLT MORPHOLOGY> NORMAL PLT MORPH
[2018-06-01 06:34] LABS: ANISOCYTOSIS 1+
[2018-06-01 06:59] VITALS: BP 98/65
[2018-06-01] MEDS: TOLTERODINE LA 2MG CAP.ER.24H PO SCH (08:54)
[2018-06-01] MEDS: CHOLECALCIFEROL 1,000 UNIT TABLET PO SCH (08:54)
[2018-06-01] MEDS: CALCIUM/VITAMIN D3 250-125 TABLET PO SCH (08:55)
[2018-06-01] MEDS: ACYCLOVIR 400 MG TABLET PO SCH ×2 (08:55→22:00)
[2018-06-01] MEDS: FAMOTIDINE 20 MG TABLET PO SCH ×2 (08:55→22:00)
[2018-06-01] MEDS: CYANOCOBALAMIN 1,000 MCG TABLET PO SCH (08:55)
[2018-06-01] MEDS: ASPIRIN 325 MG TABLET EC PO SCH (08:55)
[2018-06-01] MEDS: DULOXETINE 30 MG CAPSULE.DR PO SCH (08:55)
[2018-06-01] MEDS: OSELTAMIVIR 75 MG CAPSULE PO SCH ×2 (08:55→22:00)
[2018-06-01] MEDS: VITAMIN K2 40 MCG HOMEMEDPO SCH (08:56)
[2018-06-01] MEDS ORDERED: TBO-FILGRASTIM 480 MCG/0.8 ML SQ SCH (09:00)
[2018-06-01] MEDS: TBO-FILGRASTIM 480 MCG/0.8 ML SQ SCH (09:00)
[2018-06-01] MEDS: LACTATED RINGERS 1,000 ML IV SCH ×2 (09:12→20:39)
[2018-06-01] MEDS: LORazepam 1MG TABLET PO PRN ×2 (09:13→22:14)
[2018-06-01 13:33] VITALS: BP 117/77
[2018-06-01] MEDS: AZITHROMYCIN 500 MG in SODIUM CHLORIDE 0.9% 250 ML IV SCH (16:23)
[2018-06-01] MEDS ORDERED: GLYCERIN ADULT SUPP PR PRN (16:30)
[2018-06-01] MEDS ORDERED: BISACODYL 10 MG SUPP PR PRN (18:00)
[2018-06-01 19:50] VITALS: BP 108/67
[2018-06-01] MEDS: POLYETHYLENE GLYCOL 17 GM PACKET PO SCH (21:00)
[2018-06-01] MEDS: ENOXAPARIN 40 MG/0.4 ML SQ SCH (22:10)
[2018-06-02] MEDS: CEFTRIAXONE PMX 1GM/50ML 50 ML IV SCH ×2 (00:49→13:34)
[2018-06-02 04:45] VITALS: BP 90/61
[2018-06-02] MEDS: OXYcodone IR 5MG TABLET PO PRN ×4 (04:57→21:48)
[2018-06-02] MEDS: GUAIFENESIN/COD200MG-20MG/10ML LIQUID PO PRN ×3 (04:57→21:48)
[2018-06-02 05:05] LABS: BASOPHILS % (AUTO) 0 % (0-1); EOSINOPHILS # (AUTO) 0.23 x10^3/uL (0-0.4); EOSINOPHILS % (AUTO) 4 % (1-7); LYMPHOCYTES # (AUTO) 0.29 x10^3/uL (1-3.4); LYMPHOCYTES % (AUTO) 5 % (22-44); MD NO; MEAN CORPUSCULAR HEMOGLOBIN 29.8 pg (27.0-34.8); MEAN CORPUSCULAR HGB CONC 33.4 g/dL (32.4-35.8); MEAN CORPUSCULAR VOLUME 89.2 fL (80-100); MEAN PLATELET VOLUME 9.1 fL (7.4-10.4); MONOCYTES # (AUTO) 0.53 x10^3/uL (0.2-0.8); MONOCYTES % (AUTO) 10 % (2-9); NEUTROPHILS # (AUTO) 4.41 x10^3/uL (1.8-6.8); NEUTROPHILS % (AUTO) 81 % (42-75); PLATELET COUNT 103 x10^3/uL (130-400); RED BLOOD COUNT 3.71 x10^6/uL (3.82-5.3); RED CELL DISTRIBUTION WIDTH 16.3 % (9.6-15.2)
[2018-06-02 05:20] LABS: ANION GAP 4 mmol/L (5-15); CALCIUM 7.8 mg/dL (8.5-10.1); CHLORIDE 108 mmol/L (98-107)
[2018-06-02 05:21] LABS: CREATININE 0.69 mg/dL (0.55-1.02)
[2018-06-02] MEDS: PANTOPRAZOLE 20MG TABLET PO SCH (06:30)
[2018-06-02] MEDS: LACTATED RINGERS 1,000 ML IV SCH ×2 (06:31→15:40)
[2018-06-02] MEDS: TBO-FILGRASTIM 480 MCG/0.8 ML SQ SCH (07:56)
[2018-06-02 08:16] VITALS: BP 98/66
[2018-06-02] MEDS: CYANOCOBALAMIN 1,000 MCG TABLET PO SCH (08:25)
[2018-06-02] MEDS: CHOLECALCIFEROL 1,000 UNIT TABLET PO SCH (08:26)
[2018-06-02] MEDS: ACYCLOVIR 400 MG TABLET PO SCH ×2 (08:27→21:48)
[2018-06-02] MEDS: TOLTERODINE LA 2MG CAP.ER.24H PO SCH (08:27)
[2018-06-02] MEDS: ASPIRIN 325 MG TABLET EC PO SCH (08:28)
[2018-06-02] MEDS: OSELTAMIVIR 75 MG CAPSULE PO SCH ×2 (08:28→21:48)
[2018-06-02] MEDS: FAMOTIDINE 20 MG TABLET PO SCH ×2 (08:28→21:48)
[2018-06-02] MEDS: CALCIUM/VITAMIN D3 250-125 TABLET PO SCH (08:29)
[2018-06-02] MEDS: VITAMIN K2 40 MCG HOMEMEDPO SCH (08:29)
[2018-06-02] MEDS: DULOXETINE 30 MG CAPSULE.DR PO SCH (08:29)
[2018-06-02] MEDS: LORazepam 1MG TABLET PO PRN ×2 (13:38→21:48)
[2018-06-02 14:22] VITALS: BP 107/74
[2018-06-02] MEDS: AZITHROMYCIN 500 MG in SODIUM CHLORIDE 0.9% 250 ML IV SCH (15:41)
[2018-06-02] MEDS: ACETAMINOPHEN 325 MG TABLET PO PRN (15:49)
[2018-06-02 19:59] VITALS: BP 107/52
[2018-06-02] MEDS: POLYETHYLENE GLYCOL 17 GM PACKET PO SCH (21:49)
[2018-06-02] MEDS: ENOXAPARIN 40 MG/0.4 ML SQ SCH (21:49)
[2018-06-03] MEDS: CEFTRIAXONE PMX 1GM/50ML 50 ML IV SCH ×2 (01:06→13:19)
[2018-06-03 04:42] LABS: BASOPHILS # (AUTO) 0.04 x10^3/uL (0-0.1); BASOPHILS % (AUTO) 1 % (0-1); EOSINOPHILS # (AUTO) 0.36 x10^3/uL (0-0.4); EOSINOPHILS % (AUTO) 7 % (1-7); LYMPHOCYTES # (AUTO) 0.57 x10^3/uL (1-3.4); LYMPHOCYTES % (AUTO) 11 % (22-44); MD NO; MEAN CORPUSCULAR HEMOGLOBIN 28.5 pg (27.0-34.8); MEAN CORPUSCULAR VOLUME 89.1 fL (80-100); MONOCYTES # (AUTO) 0.53 x10^3/uL (0.2-0.8); MONOCYTES % (AUTO) 10 % (2-9); NEUTROPHILS # (AUTO) 3.63 x10^3/uL (1.8-6.8); NEUTROPHILS % (AUTO) 71 % (42-75); PLATELET COUNT 126 x10^3/uL (130-400); RED BLOOD COUNT 3.78 x10^6/uL (3.82-5.3); RED CELL DISTRIBUTION WIDTH 16.5 % (9.6-15.2)
[2018-06-03 05:13] LABS: ANION GAP 6 mmol/L (5-15); CALCIUM 7.7 mg/dL (8.5-10.1); CHLORIDE 111 mmol/L (98-107)
[2018-06-03 05:38] VITALS: BP 127/75
[2018-06-03] MEDS: PANTOPRAZOLE 20MG TABLET PO SCH (05:44)
[2018-06-03] MEDS: OXYcodone IR 5MG TABLET PO PRN ×2 (05:44→13:47)
[2018-06-03] MEDS: GUAIFENESIN/COD200MG-20MG/10ML LIQUID PO PRN (05:44)
[2018-06-03 07:20] VITALS: BP 116/78
[2018-06-03] MEDS: CHOLECALCIFEROL 1,000 UNIT TABLET PO SCH (08:46)
[2018-06-03] MEDS: ASPIRIN 325 MG TABLET EC PO SCH (08:47)
[2018-06-03] MEDS: TOLTERODINE LA 2MG CAP.ER.24H PO SCH (08:47)
[2018-06-03] MEDS: CALCIUM/VITAMIN D3 250-125 TABLET PO SCH (08:47)
[2018-06-03] MEDS: OSELTAMIVIR 75 MG CAPSULE PO SCH (08:48)
[2018-06-03] MEDS: ACYCLOVIR 400 MG TABLET PO SCH (08:48)
[2018-06-03] MEDS: DULOXETINE 30 MG CAPSULE.DR PO SCH (08:48)
[2018-06-03] MEDS: FAMOTIDINE 20 MG TABLET PO SCH (08:48)
[2018-06-03] MEDS: CYANOCOBALAMIN 1,000 MCG TABLET PO SCH (08:48)
[2018-06-03] MEDS: TBO-FILGRASTIM 480 MCG/0.8 ML SQ SCH (09:00)
[2018-06-03] MEDS ORDERED: DEXAMETHASONE 4 MG TABLET PO SCH (09:00)
[2018-06-03] MEDS: VITAMIN K2 40 MCG HOMEMEDPO SCH (09:00)
[2018-06-03] MEDS ORDERED: AMOX1TAB64 PO (13:12)
[2018-06-03] MEDS: LORazepam 1MG TABLET PO PRN (13:48)
[2018-06-03 14:58] VITALS: BP 127/84
[2018-06-03] MEDS: AZITHROMYCIN 500 MG in SODIUM CHLORIDE 0.9% 250 ML IV SCH (16:41)
== END 2018-06-03 20:20 | disposition home or self-care (01) | DRG 871 ==
LOC: ED 12:46 → EDIP 12:47 → ED 13:07 → 3NW 15:13
PROVIDERS: ADMIT Internal Medicine; ATTEND Internal Medicine
DX: A41.9 Sepsis, unspecified organism (principal); J18.9 Pneumonia, unspecified organism; J11.00 Influenza due to unidentified influenza virus with unspecified type of pneumonia; C90.00 Multiple myeloma not having achieved remission; E87.1 Hypo-osmolality and hyponatremia; I10 Essential (primary) hypertension; N32.81 Overactive bladder; Z80.3 Family history of malignant neoplasm of breast; Z87.01 Personal history of pneumonia (recurrent); Z87.11 Personal history of peptic ulcer disease; Z90.710 Acquired absence of both cervix and uterus; Z98.84 Bariatric surgery status; Z88.5 Allergy status to narcotic agent; Z88.8 Allergy status to other drugs, medicaments and biological substances
CPT/HCPCS: 36415; 84145; 87400; 99285; J7613; 71045; 71275; 80048; 80053; 83605; 84439; 84443; 84484; 85025; 85651; 87040; 87070; 87205; 93005; 96365; 96375; G0378; J0456; J0696; J1170; J1650; J2405; Q9967; J1447; J7050; J7120

== ENCOUNTER → 2018-06-10 | Outpatient (CLI) | payer OTHER ==
[~2018-06-10] MED LIST changes: +AMOX1TAB64 PO; +DOCU-131 PO
[2018-06-10 09:09] LABS: BASOPHILS # (AUTO) 0.05 x10^3/uL (0-0.1); BASOPHILS % (AUTO) 1 % (0-1); EOSINOPHILS # (AUTO) 0.69 x10^3/uL (0-0.4); EOSINOPHILS % (AUTO) 11 % (1-7); LYMPHOCYTES # (AUTO) 0.88 x10^3/uL (1-3.4); LYMPHOCYTES % (AUTO) 14 % (22-44); MD NO; MEAN CORPUSCULAR HEMOGLOBIN 28.6 pg (27.0-34.8); MEAN CORPUSCULAR HGB CONC 32.4 g/dL (32.4-35.8); MEAN CORPUSCULAR VOLUME 88.2 fL (80-100); MEAN PLATELET VOLUME 8.1 fL (7.4-10.4); MONOCYTES # (AUTO) 0.52 x10^3/uL (0.2-0.8); MONOCYTES % (AUTO) 8 % (2-9); NEUTROPHILS # (AUTO) 4.37 x10^3/uL (1.8-6.8); NEUTROPHILS % (AUTO) 67 % (42-75); PLATELET COUNT 298 x10^3/uL (130-400); RED BLOOD COUNT 4.54 x10^6/uL (3.82-5.3); RED CELL DISTRIBUTION WIDTH 16.4 % (9.6-15.2)
[2018-06-10 09:17] LABS: ALANINE AMINOTRANSFERASE 26 U/L (12-78); ALBUMIN 3.1 g/dL (3.4-5.0); ANION GAP 7 mmol/L (5-15); CHLORIDE 107 mmol/L (98-107); CREATININE 0.97 mg/dL (0.55-1.02)
[2018-06-10 09:19] LABS: ALKALINE PHOSPHATASE 115 U/L (45-117); BILIRUBIN,TOTAL 0.3 mg/dL (0.2-1.0); TOTAL PROTEIN 6.1 g/dL (6.4-8.2)
== END | disposition home or self-care (01) ==
LOC: LAB 08:44
PROVIDERS: ATTEND Specialist
DX: D50.9 Iron deficiency anemia, unspecified (principal); J18.9 Pneumonia, unspecified organism; J11.1 Influenza due to unidentified influenza virus with other respiratory manifestations; C90.00 Multiple myeloma not having achieved remission; C79.51 Secondary malignant neoplasm of bone
CPT/HCPCS: 36415; 80053; 82232; 82784; 83883; 84155; 84165; 85025; 86334

== ENCOUNTER 2018-07-06 13:16 | Outpatient (CLI) | payer OTHER | END 2018-07-06 23:59 | disposition home or self-care (01) | LOC: RAD 13:16 | PROVIDERS: ATTEND Family Medicine | DX: J18.9 Pneumonia, unspecified organism (principal); J11.1 Influenza due to unidentified influenza virus with other respiratory manifestations | CPT/HCPCS: 71046 ==

== ENCOUNTER → 2018-07-31 | Outpatient (CLI) | payer OTHER ==
[2018-07-31 12:08] LABS: MEAN CORPUSCULAR HEMOGLOBIN 29.4 pg (27.0-34.8); MEAN CORPUSCULAR HGB CONC 32.1 g/dL (32.4-35.8); MEAN CORPUSCULAR VOLUME 91.6 fL (80-100); MEAN PLATELET VOLUME 8.1 fL (7.4-10.4); PLATELET COUNT 226 x10^3/uL (130-400); RED BLOOD COUNT 4.24 x10^6/uL (3.82-5.3); RED CELL DISTRIBUTION WIDTH 17.6 % (9.6-15.2)
[2018-07-31 12:17] LABS: CALCIUM 8.5 mg/dL (8.5-10.1); CHLORIDE 105 mmol/L (98-107)
[2018-07-31 12:31] LABS: ALANINE AMINOTRANSFERASE 51 U/L (12-78); ALBUMIN 3.2 g/dL (3.4-5.0); ALKALINE PHOSPHATASE 123 U/L (45-117); ANION GAP 6 mmol/L (5-15); BILIRUBIN,TOTAL 0.4 mg/dL (0.2-1.0); CREATININE 0.95 mg/dL (0.55-1.02); THYROID STIMULATING HORMONE 0.854 mIU/L (0.358-3.740); TOTAL PROTEIN 6.5 g/dL (6.4-8.2)
[2018-07-31 12:52] LABS: MD YES
[2018-07-31 12:55] LABS: EOS#(MANUAL) 0.44 x10^3/uL (0.0-0.4); EOS% (MANUAL) 10 % (1-7); LYMPH#(MANUAL) 0.44 x10^3/uL (1-3.4); LYMPHS% (MANUAL) 10 % (22-44); MONOS#(MANUAL) 0.48 x10^3/uL (0.3-2.7); MONOS% (MANUAL) 11 % (2-9); SEG#(MANUAL) 3.04 x10^3/uL (1.8-6.8); SEGS% (MANUAL) 69 % (42-75)
[2018-07-31 12:56] LABS: <PLATELET ESTIMATE> ADEQUATE; <PLT MORPHOLOGY> NORMAL PLT MORPH; ANISOCYTOSIS 1+
== END | disposition home or self-care (01) ==
LOC: LAB 11:30
PROVIDERS: ATTEND Nurse Practitioner Family
DX: D50.9 Iron deficiency anemia, unspecified (principal); C90.00 Multiple myeloma not having achieved remission; C79.51 Secondary malignant neoplasm of bone; D80.1 Nonfamilial hypogammaglobulinemia; D70.9 Neutropenia, unspecified
CPT/HCPCS: 36415; 80053; 82232; 82784; 83883; 84155; 84156; 84165; 84166; 84443; 85025; 86334

== ENCOUNTER 2018-08-28 12:06 | Day surgery (SDC) | payer OTHER ==
[~2018-08-28] VITALS: Ht 157.5 cm; Wt 92.1 kg
[2018-08-28 12:41] VITALS: BP 134/79
[2018-08-28] MEDS ORDERED: LENA10CA PO (13:04)
[2018-08-28] MEDS ORDERED: LACTATED RINGERS 1,000 ML IV SCH (13:13)
[2018-08-28] MEDS ORDERED: PROPOFOL 10 MG/ML, 20ML ONE (13:48)
[2018-08-28] MEDS ORDERED: FENTANYL PF 100 MCG/2ML IV PRN (15:00)
[2018-08-28] MEDS ORDERED: OXYcodone 5 MG/5 ML ORAL.SOL UDC PO PRN (15:00)
[2018-08-28] MEDS ORDERED: MEPERIDINE/PF 25MG/0.5ML IVPush PRN (15:00)
[2018-08-28] MEDS ORDERED: ONDANSETRON 2MG/ML, 2ML IV PRN (15:00)
[2018-08-28] MEDS ORDERED: HYDROmorphone 2 MG/ML, 1ML IVPush PRN (15:00)
[2018-08-28] MEDS ORDERED: LORazepam 2 MG/ML, 1ML IVPush PRN (15:00)
[2018-08-28] MEDS ORDERED: hydrALAzine 20 MG/ML, 1ML IV PRN (15:00)
== END 2018-08-28 16:15 | disposition home or self-care (01) ==
LOC: OUT 12:06 → EDSTATUS 12:45 → OUT 16:15
PROVIDERS: ATTEND Pain Medicine Interventional Pain Medicine
DX: M48.02 Spinal stenosis, cervical region (principal); M48.061 Spinal stenosis, lumbar region without neurogenic claudication; M48.07 Spinal stenosis, lumbosacral region; Q76.49 Other congenital malformations of spine, not associated with scoliosis; K21.9 Gastro-esophageal reflux disease without esophagitis; C90.00 Multiple myeloma not having achieved remission; G50.0 Trigeminal neuralgia; Z88.8 Allergy status to other drugs, medicaments and biological substances; F32.9 Major depressive disorder, single episode, unspecified; F41.9 Anxiety disorder, unspecified; Z79.899 Other long term (current) drug therapy; Z72.89 Other problems related to lifestyle; Z98.84 Bariatric surgery status; Z90.710 Acquired absence of both cervix and uterus; Z98.890 Other specified postprocedural states; Z80.3 Family history of malignant neoplasm of breast
CPT/HCPCS: 72040; 72120; 72141; 72148; J2704; J7120

== ENCOUNTER → 2018-09-08 | Outpatient (CLI) | payer OTHER ==
[~2018-09-08] MED LIST changes: +LENA10CA PO
[2018-09-08 12:44] LABS: BASOPHILS # (AUTO) 0.06 x10^3/uL (0-0.1); BASOPHILS % (AUTO) 1 % (0-1); EOSINOPHILS # (AUTO) 0.55 x10^3/uL (0-0.4); EOSINOPHILS % (AUTO) 12 % (1-7); LYMPHOCYTES # (AUTO) 0.61 x10^3/uL (1-3.4); LYMPHOCYTES % (AUTO) 13 % (22-44); MD NO; MEAN CORPUSCULAR HEMOGLOBIN 28.4 pg (27.0-34.8); MEAN CORPUSCULAR VOLUME 88.7 fL (80-100); MONOCYTES # (AUTO) 0.54 x10^3/uL (0.2-0.8); MONOCYTES % (AUTO) 12 % (2-9); NEUTROPHILS # (AUTO) 2.91 x10^3/uL (1.8-6.8); NEUTROPHILS % (AUTO) 62 % (42-75); PLATELET COUNT 207 x10^3/uL (130-400); RED CELL DISTRIBUTION WIDTH 16.8 % (9.6-15.2)
[2018-09-08 13:03] LABS: ALANINE AMINOTRANSFERASE 51 U/L (12-78); ALBUMIN 3.5 g/dL (3.4-5.0); ANION GAP 10 mmol/L (5-15); CALCIUM 9.3 mg/dL (8.5-10.1); CHLORIDE 105 mmol/L (98-107); CREATININE 1.03 mg/dL (0.55-1.02)
[2018-09-08 13:05] LABS: ALKALINE PHOSPHATASE 130 U/L (45-117); BILIRUBIN,TOTAL 0.5 mg/dL (0.2-1.0); TOTAL PROTEIN 6.9 g/dL (6.4-8.2)
== END | disposition home or self-care (01) ==
LOC: LAB 12:18
PROVIDERS: ATTEND Specialist
DX: C90.00 Multiple myeloma not having achieved remission (principal); C79.51 Secondary malignant neoplasm of bone; D50.9 Iron deficiency anemia, unspecified; D80.1 Nonfamilial hypogammaglobulinemia; D70.9 Neutropenia, unspecified
CPT/HCPCS: 36415; 80053; 82232; 82784; 83883; 84155; 84156; 84165; 84166; 85025; 86334; 86335

== ENCOUNTER 2018-12-26 08:58 | Inpatient (IN) | payer OTHER ==
[~2018-12-26] VITALS: Ht 157.5 cm; Wt 95.7 kg
[~2018-12-26 08:58] MED LIST changes: +INDO50CA15 PO; -INDO50CA5 PO
--- NOTE | 2018-12-26 09:20 | NUR ---
PT HAS CO OF COUGH AND CHEST PAIN WE BREATHING AND COUGHING. PT REPORTS STARTING LEVAQUIN ON FRIDAY, SYMPTOMS HAVE WORSENED. MD AT BEDSIDE. PT NOT IN ANY DISTRESS. RESPIRATIONS EVEN AND UNLABORED
[2018-12-26] MEDS ORDERED: SODIUM CHLORIDE 0.9% 1,000ML IVBOLUS ONE (10:00)
[2018-12-26] MEDS ORDERED: HYDROmorphone 1 MG/ML, 1ML INJ IV PRN (10:00)
[2018-12-26] MEDS ORDERED: SODIUM CHLORIDE FLUSH 10ML SYR IVF ONE (10:00)
[2018-12-26] MEDS ORDERED: HYDROmorphone 1 MG/ML, 1ML VIAL ONE (10:25)
[2018-12-26 10:43] LABS: BASOPHILS # (AUTO) 0.11 x10^3/uL (0-0.1); BASOPHILS % (AUTO) 3 % (0-1); EOSINOPHILS # (AUTO) 0.18 x10^3/uL (0-0.4); EOSINOPHILS % (AUTO) 4 % (1-7); LYMPHOCYTES # (AUTO) 0.55 x10^3/uL (1-3.4); LYMPHOCYTES % (AUTO) 13 % (22-44); MD NO; MEAN CORPUSCULAR HEMOGLOBIN 27.7 pg (27.0-34.8); MEAN CORPUSCULAR HGB CONC 32.5 g/dL (32.4-35.8); MEAN CORPUSCULAR VOLUME 85.2 fL (80-100); MEAN PLATELET VOLUME 8.4 fL (7.4-10.4); MONOCYTES # (AUTO) 0.72 x10^3/uL (0.2-0.8); MONOCYTES % (AUTO) 17 % (2-9); NEUTROPHILS # (AUTO) 2.58 x10^3/uL (1.8-6.8); NEUTROPHILS % (AUTO) 62 % (42-75); PLATELET COUNT 246 x10^3/uL (130-400); RED BLOOD COUNT 4.57 x10^6/uL (3.82-5.3); RED CELL DISTRIBUTION WIDTH 17.6 % (9.6-15.2)
[2018-12-26 10:44] LABS: ALANINE AMINOTRANSFERASE 35 U/L (12-78); ALBUMIN 2.4 g/dL (3.4-5.0); ANION GAP 8 mmol/L (5-15); CALCIUM 8.7 mg/dL (8.5-10.1); CHLORIDE 101 mmol/L (98-107); CREATININE 1.05 mg/dL (0.55-1.02)
[2018-12-26 10:47] LABS: ALKALINE PHOSPHATASE 142 U/L (45-117); BILIRUBIN,TOTAL 0.3 mg/dL (0.2-1.0); TOTAL PROTEIN 6.4 g/dL (6.4-8.2)
--- NOTE | 2018-12-26 11:07 | NUR ---
PT IN IMAGING. MEDICATED PER ORDERS
[2018-12-26] MEDS ORDERED: OMNIPAQUE 350 MG/ML, 100ML BOTTLE ONE (11:36)
[2018-12-26] MEDS ORDERED: VANCOMYCIN PER PHARMACY MC ONE (12:00)
[2018-12-26] MEDS ORDERED: PIPERACILLIN/TAZO/PMX 3.375GM 50 ML IVPB ONE (12:00)
--- NOTE | 2018-12-26 12:08 | NUR ---
MD AT BEDSIDE EXPLAINING PLAN OF CARE. SECOND BLOOD CULTURES ORDERED.
[2018-12-26] MEDS ORDERED: PIPERACILLIN/TAZO/PMX 3.375GM 50 ML ONE (12:12)
--- NOTE | 2018-12-26 12:27 | NUR ---
report recieved by ER nurse at this time
[2018-12-26] MEDS ORDERED: VANCOMYCIN 1,800 MG in SODIUM CHLORIDE 0.9% 250 ML IV ONE (12:30)
--- NOTE | 2018-12-26 12:52 | NUR ---
ECHO IN PROGRESS AT BEDSIDE. COLLECTIVE BARGAINING SPECIALIST AT BEDSIDE
--- NOTE | 2018-12-26 12:54 | NUR ---
REPORT TO OUMOU
[2018-12-26 13:25] LABS: HCT (SEDRATE) 38.9 % (34.6-47.8)
[2018-12-26 13:38] VITALS: BP 100/66
[2018-12-26] MEDS ORDERED: VENL75CA PO (14:56)
[2018-12-26] MEDS ORDERED: ZOLPIDEM 5MG TABLET PO PRN (17:30)
[2018-12-26] MEDS ORDERED: DOCUSATE 100 MG CAPSULE PO PRN (17:30)
[2018-12-26] MEDS ORDERED: VANCOMYCIN PER PHARMACY MC PRN (17:30)
[2018-12-26] MEDS ORDERED: PROMETHAZINE 25MG TABLET PO PRN (17:30)
[2018-12-26] MEDS ORDERED: PROCHLORPERAZINE 10MG TABLET PO PRN (17:30)
[2018-12-26] MEDS: OXYcodone IR 5MG TABLET PO PRN (17:56)
[2018-12-26] MEDS ORDERED: ONDANSETRON 2MG/ML, 2ML IVPush PRN (18:00)
[2018-12-26] MEDS: PIPERACILLIN/TAZO/PMX 3.375GM 50 ML IV SCH ×2 (18:05→23:30)
[2018-12-26] MEDS: ENOXAPARIN 40 MG/0.4 ML SQ SCH (18:06)
[2018-12-26] MEDS ORDERED: PHARMACOKINETIC MONITORING MC PRN (18:30)
[2018-12-26] MEDS ORDERED: PHARMACOKINETIC CONSULTATION MC ONE (18:30)
[2018-12-26 20:43] VITALS: BP 102/63
[2018-12-26] MEDS: HYDROmorphone 2 MG/ML, 1ML IVPush PRN (23:31)
[2018-12-27 00:49] VITALS: BP 97/64
[2018-12-27 04:57] LABS: ALBUMIN 2.1 g/dL (3.4-5.0); ANION GAP 5 mmol/L (5-15); CALCIUM 8.1 mg/dL (8.5-10.1); CHLORIDE 106 mmol/L (98-107)
[2018-12-27 05:01] LABS: ALANINE AMINOTRANSFERASE 64 U/L (12-78); ALKALINE PHOSPHATASE 261 U/L (45-117); BILIRUBIN,TOTAL 0.5 mg/dL (0.2-1.0); MEAN CORPUSCULAR HEMOGLOBIN 28.2 pg (27.0-34.8); MEAN CORPUSCULAR HGB CONC 32.7 g/dL (32.4-35.8); MEAN CORPUSCULAR VOLUME 86.2 fL (80-100); MEAN PLATELET VOLUME 8.6 fL (7.4-10.4); PLATELET COUNT 229 x10^3/uL (130-400); RED BLOOD COUNT 4.16 x10^6/uL (3.82-5.3); RED CELL DISTRIBUTION WIDTH 17.8 % (9.6-15.2); TOTAL PROTEIN 5.6 g/dL (6.4-8.2)
[2018-12-27] MEDS: PIPERACILLIN/TAZO/PMX 3.375GM 50 ML IV SCH ×4 (05:36→23:28)
[2018-12-27 05:50] LABS: MD YES
[2018-12-27 05:52] LABS: EOS#(MANUAL) 0.14 x10^3/uL (0.0-0.4); EOS% (MANUAL) 4 % (1-7); LYMPH#(MANUAL) 0.32 x10^3/uL (1-3.4); LYMPHS% (MANUAL) 9 % (22-44); MONOS#(MANUAL) 0.47 x10^3/uL (0.3-2.7); MONOS% (MANUAL) 13 % (2-9); SEG#(MANUAL) 2.66 x10^3/uL (1.8-6.8); SEGS% (MANUAL) 74 % (42-75)
[2018-12-27 05:53] LABS: ANISOCYTOSIS 1+; POLYCHROMASIA 1+
[2018-12-27 05:54] LABS: <PLATELET ESTIMATE> ADEQUATE; <PLT MORPHOLOGY> NORMAL PLT MORPH; OVALOCYTES 1+
[2018-12-27] MEDS: OXYcodone IR 5MG TABLET PO PRN ×2 (06:47→18:11)
[2018-12-27 07:52] VITALS: BP 94/62
[2018-12-27] MEDS ORDERED: TOLTERODINE LA 2MG CAP.ER.24H PO SCH (09:00)
[2018-12-27] MEDS: ASPIRIN 325 MG TABLET EC PO SCH (09:13)
[2018-12-27] MEDS: PANTOPRAZOLE 20MG TABLET PO SCH ×2 (09:13→20:36)
[2018-12-27] MEDS: VENLAFAXINE 75 MG CAP ER PO SCH (09:13)
[2018-12-27] MEDS: DULOXETINE 30 MG CAPSULE.DR PO SCH (09:13)
[2018-12-27] MEDS ORDERED: VANCOMYCIN 1,700 MG in SODIUM CHLORIDE 0.9% 250 ML IV SCH (12:00)
[2018-12-27 13:35] VITALS: BP 92/63
[2018-12-27] MEDS: ENOXAPARIN 40 MG/0.4 ML SQ SCH (18:12)
[2018-12-27 18:57] VITALS: BP 93/66
[2018-12-27] MEDS: ORAJEL 7GM TUBE MM PRN (21:36)
[2018-12-27] MEDS: HYDROmorphone 2 MG/ML, 1ML IVPush PRN (23:29)
[2018-12-28 01:08] VITALS: BP 92/54
[2018-12-28] MEDS: OXYcodone IR 5MG TABLET PO PRN ×3 (03:40→18:43)
[2018-12-28] MEDS: ORAJEL 7GM TUBE MM PRN (03:41)
[2018-12-28] MEDS ORDERED: ACETAMINOPHEN 500 MG TABLET PO PRN (03:45)
[2018-12-28 05:30] LABS: MEAN CORPUSCULAR HEMOGLOBIN 28.4 pg (27.0-34.8); MEAN PLATELET VOLUME 8.3 fL (7.4-10.4); PLATELET COUNT 257 x10^3/uL (130-400); RED BLOOD COUNT 4.09 x10^6/uL (3.82-5.3); RED CELL DISTRIBUTION WIDTH 18.1 % (9.6-15.2)
[2018-12-28] MEDS: PIPERACILLIN/TAZO/PMX 3.375GM 50 ML IV SCH (05:31)
[2018-12-28 05:43] LABS: ALBUMIN 2.2 g/dL (3.4-5.0); ANION GAP 6 mmol/L (5-15); CHLORIDE 105 mmol/L (98-107)
[2018-12-28 05:46] LABS: ALANINE AMINOTRANSFERASE 64 U/L (12-78); ALKALINE PHOSPHATASE 252 U/L (45-117); BILIRUBIN,TOTAL 0.4 mg/dL (0.2-1.0); TOTAL PROTEIN 5.8 g/dL (6.4-8.2)
[2018-12-28] MEDS: HYDROmorphone 2 MG/ML, 1ML IVPush PRN ×3 (05:47→21:41)
[2018-12-28 06:10] LABS: MD YES
[2018-12-28 06:29] LABS: ANISOCYTOSIS 1+; EOS#(MANUAL) 0.54 x10^3/uL (0.0-0.4); EOS% (MANUAL) 15 % (1-7); LYMPH#(MANUAL) 0.65 x10^3/uL (1-3.4); LYMPHS% (MANUAL) 18 % (22-44); MONOS#(MANUAL) 0.36 x10^3/uL (0.3-2.7); MONOS% (MANUAL) 10 % (2-9); OVALOCYTES 1+; POLYCHROMASIA 1+; SEG#(MANUAL) 2.05 x10^3/uL (1.8-6.8); SEGS% (MANUAL) 57 % (42-75)
[2018-12-28 06:30] LABS: <PLATELET ESTIMATE> ADEQUATE; <PLT MORPHOLOGY> NORMAL PLT MORPH
[2018-12-28 07:08] VITALS: BP 94/52
[2018-12-28] MEDS: ASPIRIN 325 MG TABLET EC PO SCH (09:51)
[2018-12-28] MEDS: VENLAFAXINE 75 MG CAP ER PO SCH (09:52)
[2018-12-28] MEDS: TOLTERODINE LA 2MG CAP.ER.24H PO SCH (09:53)
[2018-12-28 13:26] VITALS: BP 91/55
[2018-12-28] MEDS: AMPICILLIN/SULBACTAM 3 GM in SODIUM CHLORIDE 0.9% 100 ML IV SCH ×2 (14:13→19:59)
[2018-12-28] MEDS: ENOXAPARIN 40 MG/0.4 ML SQ SCH (18:32)
[2018-12-28 20:03] VITALS: BP 124/71
[2018-12-28] MEDS ORDERED: POTASSIUM CHLORIDE 20 MEQ TAB.ER.PRT PO ONE (21:30)
[2018-12-28] MEDS: PANTOPRAZOLE 20MG TABLET PO SCH (21:41)
[2018-12-28] MEDS: DULOXETINE 30 MG CAPSULE.DR PO SCH (21:41)
[2018-12-29 00:34] VITALS: BP 109/75
[2018-12-29] MEDS: HYDROmorphone 2 MG/ML, 1ML IVPush PRN ×3 (02:28→20:05)
[2018-12-29] MEDS: AMPICILLIN/SULBACTAM 3 GM in SODIUM CHLORIDE 0.9% 100 ML IV SCH ×4 (02:28→20:04)
[2018-12-29 04:35] LABS: MEAN CORPUSCULAR HEMOGLOBIN 28.2 pg (27.0-34.8); MEAN CORPUSCULAR HGB CONC 32.5 g/dL (32.4-35.8); MEAN CORPUSCULAR VOLUME 86.7 fL (80-100); MEAN PLATELET VOLUME 8.4 fL (7.4-10.4); PLATELET COUNT 270 x10^3/uL (130-400); RED BLOOD COUNT 4.23 x10^6/uL (3.82-5.3); RED CELL DISTRIBUTION WIDTH 17.9 % (9.6-15.2)
[2018-12-29 04:46] LABS: MD YES
[2018-12-29 04:50] LABS: ANION GAP 8 mmol/L (5-15); CALCIUM 8.1 mg/dL (8.5-10.1); CHLORIDE 107 mmol/L (98-107); CREATININE 0.87 mg/dL (0.55-1.02)
[2018-12-29 04:53] LABS: <PLATELET ESTIMATE> ADEQUATE; <PLT MORPHOLOGY> NORMAL PLT MORPH; ANISOCYTOSIS 1+; BASOS#(MANUAL) 0.04 x10^3/uL (0-0.1); BASOS% (MANUAL) 1 % (0-1); EOS#(MANUAL) 0.31 x10^3/uL (0.0-0.4); EOS% (MANUAL) 8 % (1-7); LYMPHS% (MANUAL) 18 % (22-44); MONOS#(MANUAL) 0.62 x10^3/uL (0.3-2.7); MONOS% (MANUAL) 16 % (2-9); OVALOCYTES 1+; POLYCHROMASIA 1+; SEG#(MANUAL) 2.22 x10^3/uL (1.8-6.8); SEGS% (MANUAL) 57 % (42-75)
[2018-12-29] MEDS: OXYcodone IR 5MG TABLET PO PRN ×3 (05:15→16:07)
[2018-12-29 07:15] VITALS: BP 105/64
[2018-12-29] MEDS: VENLAFAXINE 75 MG CAP ER PO SCH (07:55)
[2018-12-29] MEDS: TOLTERODINE LA 2MG CAP.ER.24H PO SCH (07:56)
[2018-12-29] MEDS: ASPIRIN 325 MG TABLET EC PO SCH (07:56)
[2018-12-29 13:10] VITALS: BP 102/54
[2018-12-29] MEDS: ENOXAPARIN 40 MG/0.4 ML SQ SCH (18:28)
[2018-12-29 19:48] VITALS: BP 107/70
[2018-12-29] MEDS: VALACYCLOVIR 500MG TABLET PO SCH (20:05)
[2018-12-29] MEDS: DULOXETINE 30 MG CAPSULE.DR PO SCH (20:05)
[2018-12-29] MEDS: PANTOPRAZOLE 20MG TABLET PO SCH (20:05)
[2018-12-30 01:58] VITALS: BP 97/61
[2018-12-30] MEDS: AMPICILLIN/SULBACTAM 3 GM in SODIUM CHLORIDE 0.9% 100 ML IV SCH ×4 (02:43→20:28)
[2018-12-30] MEDS: HYDROmorphone 2 MG/ML, 1ML IVPush PRN ×5 (03:17→23:42)
[2018-12-30] MEDS: OXYcodone IR 5MG TABLET PO PRN ×3 (05:29→20:29)
[2018-12-30 07:03] LABS: MEAN CORPUSCULAR HEMOGLOBIN 27.8 pg (27.0-34.8); MEAN CORPUSCULAR HGB CONC 32.4 g/dL (32.4-35.8); MEAN CORPUSCULAR VOLUME 85.9 fL (80-100); MEAN PLATELET VOLUME 8.6 fL (7.4-10.4); PLATELET COUNT 262 x10^3/uL (130-400); RED BLOOD COUNT 4.13 x10^6/uL (3.82-5.3); RED CELL DISTRIBUTION WIDTH 17.9 % (9.6-15.2)
[2018-12-30 07:07] VITALS: BP 106/59
[2018-12-30 07:09] LABS: CALCIUM 8.2 mg/dL (8.5-10.1); CHLORIDE 106 mmol/L (98-107); CREATININE 0.89 mg/dL (0.55-1.02)
[2018-12-30 07:24] LABS: ANION GAP 5 mmol/L (5-15); MD YES
[2018-12-30 07:26] LABS: BAND#(MANUAL) 0.03 x10^3/uL; BANDS%(MANUAL) 1 % (0-7); EOS#(MANUAL) 0.25 x10^3/uL (0.0-0.4); EOS% (MANUAL) 8 % (1-7); LYMPH#(MANUAL) 0.43 x10^3/uL (1-3.4); LYMPHS% (MANUAL) 14 % (22-44); MONOS#(MANUAL) 0.53 x10^3/uL (0.3-2.7); MONOS% (MANUAL) 17 % (2-9); SEG#(MANUAL) 1.86 x10^3/uL (1.8-6.8); SEGS% (MANUAL) 60 % (42-75)
[2018-12-30 07:27] LABS: <PLATELET ESTIMATE> ADEQUATE; <PLT MORPHOLOGY> NORMAL PLT MORPH; ANISOCYTOSIS 1+; OVALOCYTES 1+; POLYCHROMASIA 1+
[2018-12-30] MEDS: VENLAFAXINE 75 MG CAP ER PO SCH (08:42)
[2018-12-30] MEDS: ASPIRIN 325 MG TABLET EC PO SCH (08:42)
[2018-12-30] MEDS: VALACYCLOVIR 500MG TABLET PO SCH ×2 (08:42→20:30)
[2018-12-30] MEDS: TOLTERODINE LA 2MG CAP.ER.24H PO SCH (08:42)
[2018-12-30] MEDS: FLUCONAZOLE 200 MG TABLET PO SCH (10:34)
[2018-12-30 14:00] VITALS: BP 120/84
[2018-12-30] MEDS: ENOXAPARIN 40 MG/0.4 ML SQ SCH (18:10)
[2018-12-30 19:19] VITALS: BP 104/58
[2018-12-30] MEDS: PANTOPRAZOLE 20MG TABLET PO SCH (20:29)
[2018-12-30] MEDS: DULOXETINE 30 MG CAPSULE.DR PO SCH (20:29)
[2018-12-31] MEDS: OXYcodone IR 5MG TABLET PO PRN ×5 (01:30→23:43)
[2018-12-31] MEDS: AMPICILLIN/SULBACTAM 3 GM in SODIUM CHLORIDE 0.9% 100 ML IV SCH ×4 (01:30→19:40)
[2018-12-31 02:12] VITALS: BP 133/77
[2018-12-31 04:28] LABS: ALBUMIN 2.2 g/dL (3.4-5.0); ANION GAP 6 mmol/L (5-15); CALCIUM 8.1 mg/dL (8.5-10.1); CHLORIDE 108 mmol/L (98-107)
[2018-12-31 04:31] LABS: ALANINE AMINOTRANSFERASE 27 U/L (12-78); ALKALINE PHOSPHATASE 155 U/L (45-117); BILIRUBIN,TOTAL 0.2 mg/dL (0.2-1.0); CREATININE 1.11 mg/dL (0.55-1.02); TOTAL PROTEIN 5.7 g/dL (6.4-8.2)
[2018-12-31 04:35] LABS: MEAN CORPUSCULAR HEMOGLOBIN 27.7 pg (27.0-34.8); MEAN CORPUSCULAR HGB CONC 32.5 g/dL (32.4-35.8); MEAN CORPUSCULAR VOLUME 85.3 fL (80-100); MEAN PLATELET VOLUME 8.5 fL (7.4-10.4); PLATELET COUNT 276 x10^3/uL (130-400); RED BLOOD COUNT 4.06 x10^6/uL (3.82-5.3); RED CELL DISTRIBUTION WIDTH 17.8 % (9.6-15.2)
[2018-12-31 05:09] LABS: MD YES
[2018-12-31 05:19] LABS: BAND#(MANUAL) 0.03 x10^3/uL; BANDS%(MANUAL) 1 % (0-7); EOS#(MANUAL) 0.51 x10^3/uL (0.0-0.4); EOS% (MANUAL) 16 % (1-7); LYMPH#(MANUAL) 0.54 x10^3/uL (1-3.4); LYMPHS% (MANUAL) 17 % (22-44); MONOS#(MANUAL) 0.22 x10^3/uL (0.3-2.7); MONOS% (MANUAL) 7 % (2-9); SEG#(MANUAL) 1.89 x10^3/uL (1.8-6.8); SEGS% (MANUAL) 59 % (42-75)
[2018-12-31 05:20] LABS: <PLATELET ESTIMATE> ADEQUATE; <PLT MORPHOLOGY> NORMAL PLT MORPH; ANISOCYTOSIS 1+; OVALOCYTES 1+; POLYCHROMASIA 1+
[2018-12-31 06:49] VITALS: BP 104/62
[2018-12-31] MEDS: DULOXETINE 30 MG CAPSULE.DR PO SCH (09:50)
[2018-12-31] MEDS: VALACYCLOVIR 500MG TABLET PO SCH ×2 (09:50→21:56)
[2018-12-31] MEDS: TOLTERODINE LA 2MG CAP.ER.24H PO SCH (09:51)
[2018-12-31] MEDS: ASPIRIN 325 MG TABLET EC PO SCH (09:51)
[2018-12-31] MEDS: FLUCONAZOLE 200 MG TABLET PO SCH (09:51)
[2018-12-31] MEDS: PANTOPRAZOLE 20MG TABLET PO SCH (09:51)
[2018-12-31] MEDS: VENLAFAXINE 75 MG CAP ER PO SCH (09:51)
[2018-12-31 14:10] VITALS: BP 98/60
[2018-12-31] MEDS: LACTOBACILLUS CHEW TABLET PO SCH (18:19)
[2018-12-31] MEDS: ENOXAPARIN 40 MG/0.4 ML SQ SCH (18:19)
[2018-12-31 19:51] VITALS: BP 128/84
[2018-12-31] MEDS: HYDROmorphone 2 MG/ML, 1ML IVPush PRN (21:56)
[2019-01-01] MEDS: HYDROmorphone 2 MG/ML, 1ML IVPush PRN ×5 (02:14→22:08)
[2019-01-01] MEDS: AMPICILLIN/SULBACTAM 3 GM in SODIUM CHLORIDE 0.9% 100 ML IV SCH ×5 (02:28→21:04)
[2019-01-01 03:19] VITALS: BP 121/84
[2019-01-01] MEDS: GUAIFENESIN/DM 200-20MG, 10ML UDC PO PRN (04:23)
[2019-01-01] MEDS: OXYcodone IR 5MG TABLET PO PRN ×3 (05:23→19:38)
[2019-01-01 07:31] VITALS: BP 107/68
[2019-01-01 07:38] LABS: MEAN CORPUSCULAR HEMOGLOBIN 27.7 pg (27.0-34.8); MEAN CORPUSCULAR HGB CONC 32.2 g/dL (32.4-35.8); MEAN CORPUSCULAR VOLUME 86.1 fL (80-100); MEAN PLATELET VOLUME 8.5 fL (7.4-10.4); PLATELET COUNT 299 x10^3/uL (130-400); RED BLOOD COUNT 4.24 x10^6/uL (3.82-5.3); RED CELL DISTRIBUTION WIDTH 17.6 % (9.6-15.2)
[2019-01-01 07:42] LABS: MD YES
[2019-01-01 07:47] LABS: ALANINE AMINOTRANSFERASE 25 U/L (12-78); ALBUMIN 2.5 g/dL (3.4-5.0); ANION GAP 4 mmol/L (5-15); CALCIUM 8.4 mg/dL (8.5-10.1); CHLORIDE 104 mmol/L (98-107)
[2019-01-01 07:50] LABS: ALKALINE PHOSPHATASE 144 U/L (45-117); BILIRUBIN,TOTAL 0.2 mg/dL (0.2-1.0); CREATININE 1.02 mg/dL (0.55-1.02); TOTAL PROTEIN 6.3 g/dL (6.4-8.2)
[2019-01-01 07:52] LABS: <PLATELET ESTIMATE> ADEQUATE; ANISOCYTOSIS 1+; BASOS#(MANUAL) 0.08 x10^3/uL (0-0.1); BASOS% (MANUAL) 2 % (0-1); EOS#(MANUAL) 0.47 x10^3/uL (0.0-0.4); EOS% (MANUAL) 12 % (1-7); LARGE PLATELETS 1+; LYMPH#(MANUAL) 0.78 x10^3/uL (1-3.4); LYMPHS% (MANUAL) 20 % (22-44); MONOS#(MANUAL) 0.35 x10^3/uL (0.3-2.7); MONOS% (MANUAL) 9 % (2-9); OVALOCYTES 1+; POLYCHROMASIA 1+; SEG#(MANUAL) 2.22 x10^3/uL (1.8-6.8); SEGS% (MANUAL) 57 % (42-75)
[2019-01-01] MEDS: PANTOPRAZOLE 20MG TABLET PO SCH (07:59)
[2019-01-01] MEDS: TOLTERODINE LA 2MG CAP.ER.24H PO SCH (07:59)
[2019-01-01] MEDS: LACTOBACILLUS CHEW TABLET PO SCH ×3 (07:59→17:59)
[2019-01-01] MEDS: DULOXETINE 30 MG CAPSULE.DR PO SCH (08:00)
[2019-01-01] MEDS: VENLAFAXINE 75 MG CAP ER PO SCH (08:00)
[2019-01-01] MEDS: VALACYCLOVIR 500MG TABLET PO SCH ×2 (08:00→21:13)
[2019-01-01] MEDS: ASPIRIN 325 MG TABLET EC PO SCH (08:00)
[2019-01-01] MEDS: FLUCONAZOLE 200 MG TABLET PO SCH (08:00)
[2019-01-01] MEDS: BENZONATATE 100 MG CAPSULE PO PRN ×2 (10:50→19:38)
[2019-01-01 13:22] VITALS: BP 111/75
[2019-01-01] MEDS: ENOXAPARIN 40 MG/0.4 ML SQ SCH (18:00)
[2019-01-01 19:30] VITALS: BP 124/79
[2019-01-02] MEDS: AMPICILLIN/SULBACTAM 3 GM in SODIUM CHLORIDE 0.9% 100 ML IV SCH ×4 (03:33→20:05)
[2019-01-02] MEDS: HYDROmorphone 2 MG/ML, 1ML IVPush PRN ×3 (03:33→21:12)
[2019-01-02 03:41] VITALS: BP 108/65
[2019-01-02] MEDS: BENZONATATE 100 MG CAPSULE PO PRN ×3 (04:42→18:25)
[2019-01-02 08:02] VITALS: BP 124/84
[2019-01-02] MEDS: TOLTERODINE LA 2MG CAP.ER.24H PO SCH (08:39)
[2019-01-02] MEDS: VALACYCLOVIR 500MG TABLET PO SCH ×2 (08:39→20:05)
[2019-01-02] MEDS: LACTOBACILLUS CHEW TABLET PO SCH ×3 (08:39→15:46)
[2019-01-02] MEDS: DULOXETINE 30 MG CAPSULE.DR PO SCH (08:39)
[2019-01-02] MEDS: VENLAFAXINE 75 MG CAP ER PO SCH (08:39)
[2019-01-02] MEDS: ASPIRIN 325 MG TABLET EC PO SCH (08:39)
[2019-01-02] MEDS: PANTOPRAZOLE 20MG TABLET PO SCH (08:40)
[2019-01-02] MEDS: FLUCONAZOLE 200 MG TABLET PO SCH (08:40)
[2019-01-02] MEDS: GUAIFENESIN/DM 200-20MG, 10ML UDC PO PRN (11:34)
[2019-01-02] MEDS: OXYcodone IR 5MG TABLET PO PRN ×3 (11:35→20:05)
[2019-01-02 14:46] VITALS: BP 117/78
[2019-01-02] MEDS: ENOXAPARIN 40 MG/0.4 ML SQ SCH (18:22)
[2019-01-02 19:00] VITALS: BP 131/83
[2019-01-02] MEDS ORDERED: OMNIPAQUE 350 MG/ML, 100ML BOTTLE ONE (23:11)
[2019-01-03] MEDS: GUAIFENESIN/DM 200-20MG, 10ML UDC PO PRN (00:08)
[2019-01-03 01:02] VITALS: BP 122/82
[2019-01-03] MEDS: AMPICILLIN/SULBACTAM 3 GM in SODIUM CHLORIDE 0.9% 100 ML IV SCH ×4 (01:23→20:19)
[2019-01-03] MEDS: OXYcodone IR 5MG TABLET PO PRN ×5 (01:23→23:23)
[2019-01-03] MEDS: BENZONATATE 100 MG CAPSULE PO PRN ×3 (01:23→21:25)
[2019-01-03 07:28] VITALS: BP 124/80
[2019-01-03] MEDS: ASPIRIN 325 MG TABLET EC PO SCH (08:32)
[2019-01-03] MEDS: VENLAFAXINE 75 MG CAP ER PO SCH (08:32)
[2019-01-03] MEDS: DULOXETINE 30 MG CAPSULE.DR PO SCH (08:32)
[2019-01-03] MEDS: LACTOBACILLUS CHEW TABLET PO SCH ×3 (08:32→17:23)
[2019-01-03] MEDS: PANTOPRAZOLE 20MG TABLET PO SCH (08:33)
[2019-01-03] MEDS: TOLTERODINE LA 2MG CAP.ER.24H PO SCH (08:33)
[2019-01-03] MEDS: FLUCONAZOLE 200 MG TABLET PO SCH (08:57)
[2019-01-03] MEDS: VALACYCLOVIR 500MG TABLET PO SCH ×2 (08:57→20:19)
[2019-01-03 09:32] LABS: MD YES; MEAN CORPUSCULAR HEMOGLOBIN 27.9 pg (27.0-34.8); MEAN CORPUSCULAR HGB CONC 32.4 g/dL (32.4-35.8); MEAN CORPUSCULAR VOLUME 85.9 fL (80-100); MEAN PLATELET VOLUME 7.9 fL (7.4-10.4); PLATELET COUNT 308 x10^3/uL (130-400); RED BLOOD COUNT 4.34 x10^6/uL (3.82-5.3); RED CELL DISTRIBUTION WIDTH 18.1 % (9.6-15.2)
[2019-01-03 09:34] LABS: ALANINE AMINOTRANSFERASE 21 U/L (12-78); ALBUMIN 2.6 g/dL (3.4-5.0); ANION GAP 5 mmol/L (5-15); CALCIUM 8.4 mg/dL (8.5-10.1); CHLORIDE 110 mmol/L (98-107); CREATININE 1.12 mg/dL (0.55-1.02)
[2019-01-03 09:37] LABS: ALKALINE PHOSPHATASE 131 U/L (45-117); BILIRUBIN,TOTAL 0.2 mg/dL (0.2-1.0); TOTAL PROTEIN 6.3 g/dL (6.4-8.2)
[2019-01-03 09:59] LABS: BAND#(MANUAL) 0.04 x10^3/uL; BANDS%(MANUAL) 1 % (0-7); BASOS#(MANUAL) 0.04 x10^3/uL (0-0.1); BASOS% (MANUAL) 1 % (0-1); EOS#(MANUAL) 0.47 x10^3/uL (0.0-0.4); EOS% (MANUAL) 13 % (1-7); LYMPH#(MANUAL) 0.29 x10^3/uL (1-3.4); LYMPHS% (MANUAL) 8 % (22-44); MONOS#(MANUAL) 0.22 x10^3/uL (0.3-2.7); MONOS% (MANUAL) 6 % (2-9); SEG#(MANUAL) 2.56 x10^3/uL (1.8-6.8); SEGS% (MANUAL) 71 % (42-75)
[2019-01-03 10:00] LABS: <PLATELET ESTIMATE> ADEQUATE; ANISOCYTOSIS 1+; LARGE PLATELETS 1+; OVALOCYTES 1+; POLYCHROMASIA 1+
[2019-01-03] MEDS: HYDROmorphone 2 MG/ML, 1ML IVPush PRN ×3 (11:01→20:22)
[2019-01-03 13:54] VITALS: BP 113/67
[2019-01-03] MEDS: ENOXAPARIN 40 MG/0.4 ML SQ SCH (17:39)
[2019-01-03 19:40] VITALS: BP 106/73
[2019-01-04] MEDS: HYDROmorphone 2 MG/ML, 1ML IVPush PRN (00:27)
[2019-01-04 01:48] VITALS: BP 127/77
[2019-01-04] MEDS: AMPICILLIN/SULBACTAM 3 GM in SODIUM CHLORIDE 0.9% 100 ML IV SCH ×2 (02:52→08:45)
[2019-01-04] MEDS: OXYcodone IR 5MG TABLET PO PRN ×4 (03:28→20:02)
[2019-01-04 06:50] VITALS: BP 137/89
[2019-01-04] MEDS: VALACYCLOVIR 500MG TABLET PO SCH ×2 (08:45→20:01)
[2019-01-04] MEDS: FLUCONAZOLE 200 MG TABLET PO SCH (08:45)
[2019-01-04] MEDS: VENLAFAXINE 75 MG CAP ER PO SCH (08:45)
[2019-01-04] MEDS: PANTOPRAZOLE 20MG TABLET PO SCH (08:46)
[2019-01-04] MEDS: DULOXETINE 30 MG CAPSULE.DR PO SCH (08:46)
[2019-01-04] MEDS: ASPIRIN 325 MG TABLET EC PO SCH (08:46)
[2019-01-04] MEDS: LACTOBACILLUS CHEW TABLET PO SCH ×3 (08:46→18:10)
[2019-01-04] MEDS: TOLTERODINE LA 2MG CAP.ER.24H PO SCH (08:46)
[2019-01-04] MEDS: BENZONATATE 100 MG CAPSULE PO PRN ×2 (10:09→18:10)
[2019-01-04 12:27] VITALS: BP 120/81
[2019-01-04] MEDS: AMOXICILLIN/CLAV 875-125MG TABLET PO SCH ×2 (13:34→19:16)
[2019-01-04] MEDS: ENOXAPARIN 40 MG/0.4 ML SQ SCH (18:10)
[2019-01-04] MEDS: LORazepam 1MG TABLET PO PRN (18:10)
[2019-01-04 20:30] VITALS: BP 119/79
[2019-01-05] MEDS: AMOXICILLIN/CLAV 875-125MG TABLET PO SCH ×2 (02:33→10:26)
[2019-01-05 02:34] VITALS: BP 108/72
[2019-01-05] MEDS: OXYcodone IR 5MG TABLET PO PRN ×3 (02:39→12:00)
[2019-01-05] MEDS: LORazepam 1MG TABLET PO PRN (04:46)
[2019-01-05 07:45] VITALS: BP 129/84
[2019-01-05] MEDS ORDERED: AMOX1TAB12 PO (08:38)
[2019-01-05] MEDS ORDERED: maalox/diphenh/lido/decadron PO (09:03)
[2019-01-05] MEDS ORDERED: VALA500T PO (09:04)
[2019-01-05] MEDS: VENLAFAXINE 75 MG CAP ER PO SCH (10:26)
[2019-01-05] MEDS: LACTOBACILLUS CHEW TABLET PO SCH (10:26)
[2019-01-05] MEDS: PANTOPRAZOLE 20MG TABLET PO SCH (10:27)
[2019-01-05] MEDS: ASPIRIN 325 MG TABLET EC PO SCH (10:27)
[2019-01-05] MEDS: FLUCONAZOLE 200 MG TABLET PO SCH (10:27)
[2019-01-05] MEDS: DULOXETINE 30 MG CAPSULE.DR PO SCH (10:27)
[2019-01-05] MEDS: TOLTERODINE LA 2MG CAP.ER.24H PO SCH (10:27)
[2019-01-05] MEDS: VALACYCLOVIR 500MG TABLET PO SCH (10:27)
[2019-01-05] MEDS: BENZONATATE 100 MG CAPSULE PO PRN (10:37)
[2019-01-05] MEDS ORDERED: LIDOCAINE 2% VISCOUS, 100ML MM PRN (13:00)
[2019-01-05] MEDS ORDERED: LIDO15SO3 MM (13:01)
== END 2019-01-05 14:13 | disposition home or self-care (01) | DRG 194 ==
LOC: ED 09:34 → EDIP 12:03 → 4NW 13:15
PROVIDERS: ADMIT Hospitalist; ATTEND Hospitalist
DX: J18.8 Other pneumonia, unspecified organism (principal); C90.00 Multiple myeloma not having achieved remission; Z94.84 Stem cells transplant status; Z94.81 Bone marrow transplant status; I76 Septic arterial embolism; I10 Essential (primary) hypertension; K59.00 Constipation, unspecified; E88.09 Other disorders of plasma-protein metabolism, not elsewhere classified; B00.9 Herpesviral infection, unspecified; K14.9 Disease of tongue, unspecified; B37.3 Candidiasis of vulva and vagina; E66.01 Morbid (severe) obesity due to excess calories; G89.29 Other chronic pain; D63.8 Anemia in other chronic diseases classified elsewhere; F41.9 Anxiety disorder, unspecified; G47.00 Insomnia, unspecified; Z90.49 Acquired absence of other specified parts of digestive tract; Z98.84 Bariatric surgery status; Z87.440 Personal history of urinary (tract) infections; Z90.710 Acquired absence of both cervix and uterus; Z87.11 Personal history of peptic ulcer disease; Z80.3 Family history of malignant neoplasm of breast; Z88.6 Allergy status to analgesic agent; Z88.5 Allergy status to narcotic agent; Z82.49 Family history of ischemic heart disease and other diseases of the circulatory system; Z79.899 Other long term (current) drug therapy
CPT/HCPCS: 36415; 84145; 87449; 96361; 96365; 96375; 99291; J3490; Q0169; 71046; 71260; 71275; 80048; 80053; 83605; 83735; 84100; 85025; 85651; 86140; 86738; 87040; 87070; 87081; 87205; 87305; 87385; 93005; 93306; G0378; J0295; J1170; J1650; J2543; J3370; Q9967; J7030; J7050

== ENCOUNTER 2019-01-27 09:46 | Outpatient (CLI) | payer OTHER ==
[~2019-01-27 09:46] MED LIST changes: +AMOX1TAB12 PO; +LIDO15SO3 MM; +VALA500T PO; +maalox/diphenh/lido/decadron PO
[2019-01-27] MEDS ORDERED: OMNIPAQUE 350 MG/ML, 75ML BOTTLE ONE (15:28)
== END 2019-01-27 23:59 | disposition home or self-care (01) ==
LOC: CFH 09:46
PROVIDERS: ATTEND Internal Medicine Infectious Disease
DX: J15.9 Unspecified bacterial pneumonia (principal); K86.89 Other specified diseases of pancreas; M85.80 Other specified disorders of bone density and structure, unspecified site; M47.819 Spondylosis without myelopathy or radiculopathy, site unspecified; Z90.49 Acquired absence of other specified parts of digestive tract
CPT/HCPCS: 71260; Q9967

== ENCOUNTER → 2019-02-16 | Outpatient (CLI) | payer OTHER ==
[2019-02-16 09:26] LABS: BASOPHILS % (AUTO) 0 % (0-1); EOSINOPHILS # (AUTO) 0.24 x10^3/uL (0-0.4); EOSINOPHILS % (AUTO) 3 % (1-7); LYMPHOCYTES # (AUTO) 0.71 x10^3/uL (1-3.4); LYMPHOCYTES % (AUTO) 10 % (22-44); MD NO; MEAN CORPUSCULAR HEMOGLOBIN 28.7 pg (27.0-34.8); MEAN CORPUSCULAR HGB CONC 32.2 g/dL (32.4-35.8); MEAN CORPUSCULAR VOLUME 89.3 fL (80-100); MEAN PLATELET VOLUME 7.4 fL (7.4-10.4); MONOCYTES # (AUTO) 0.55 x10^3/uL (0.2-0.8); MONOCYTES % (AUTO) 7 % (2-9); NEUTROPHILS % (AUTO) 80 % (42-75); PLATELET COUNT 292 x10^3/uL (130-400); RED BLOOD COUNT 4.26 x10^6/uL (3.82-5.3); RED CELL DISTRIBUTION WIDTH 19.8 % (9.6-15.2)
[2019-02-16 09:36] LABS: ALANINE AMINOTRANSFERASE 31 U/L (12-78); ALBUMIN 3.2 g/dL (3.4-5.0); ANION GAP 5 mmol/L (5-15); CALCIUM 8.6 mg/dL (8.5-10.1); CHLORIDE 105 mmol/L (98-107); CREATININE 0.93 mg/dL (0.55-1.02)
[2019-02-16 09:38] LABS: ALKALINE PHOSPHATASE 115 U/L (45-117); BILIRUBIN,TOTAL 0.3 mg/dL (0.2-1.0)
== END | disposition home or self-care (01) ==
LOC: LAB 09:01
PROVIDERS: ATTEND Specialist
CPT/HCPCS: 36415; 80053; 82232; 82784; 83883; 84155; 84156; 84165; 84166; 85025; 86334; 86335

== ENCOUNTER → 2019-03-17 | Outpatient (CLI) | payer OTHER ==
[2019-03-17 08:21] LABS: BASOPHILS # (AUTO) 0.02 x10^3/uL (0-0.1); BASOPHILS % (AUTO) 0 % (0-1); EOSINOPHILS # (AUTO) 0.29 x10^3/uL (0-0.4); EOSINOPHILS % (AUTO) 5 % (1-7); LYMPHOCYTES # (AUTO) 0.57 x10^3/uL (1-3.4); LYMPHOCYTES % (AUTO) 9 % (22-44); MD NO; MEAN CORPUSCULAR HEMOGLOBIN 28.4 pg (27.0-34.8); MEAN CORPUSCULAR HGB CONC 32.5 g/dL (32.4-35.8); MEAN CORPUSCULAR VOLUME 87.4 fL (80-100); MEAN PLATELET VOLUME 7.4 fL (7.4-10.4); MONOCYTES # (AUTO) 0.51 x10^3/uL (0.2-0.8); MONOCYTES % (AUTO) 8 % (2-9); NEUTROPHILS # (AUTO) 4.87 x10^3/uL (1.8-6.8); NEUTROPHILS % (AUTO) 78 % (42-75); PLATELET COUNT 333 x10^3/uL (130-400); RED CELL DISTRIBUTION WIDTH 17.3 % (9.6-15.2)
[2019-03-17 08:30] LABS: ANION GAP 6 mmol/L (5-15); CALCIUM 9.1 mg/dL (8.5-10.1); CHLORIDE 102 mmol/L (98-107)
[2019-03-17 08:34] LABS: ALANINE AMINOTRANSFERASE 24 U/L (12-78); ALKALINE PHOSPHATASE 121 U/L (45-117); BILIRUBIN,TOTAL 0.3 mg/dL (0.2-1.0); CREATININE 1.06 mg/dL (0.55-1.02); TOTAL PROTEIN 7.4 g/dL (6.4-8.2)
== END | disposition home or self-care (01) ==
LOC: LAB 07:55
PROVIDERS: ATTEND Specialist
DX: C90.00 Multiple myeloma not having achieved remission (principal); C79.51 Secondary malignant neoplasm of bone; D50.9 Iron deficiency anemia, unspecified; D80.1 Nonfamilial hypogammaglobulinemia; D70.9 Neutropenia, unspecified; Z79.899 Other long term (current) drug therapy
CPT/HCPCS: 36415; 80053; 82232; 82784; 83883; 84155; 84156; 84165; 84166; 85025; 86334; 86335

== ENCOUNTER 2019-03-21 16:40 | Emergency (ER) | payer OTHER ==
[~2019-03-21] VITALS: Ht 157.5 cm; Wt 97.7 kg
--- NOTE | 2019-03-21 17:01 | NUR ---
PT PRESENTS TO ED AFTER FALL DOWN 7-8 STEPS AT APPROXIMATELY 1600. PAIN TO RIGHT SIDE OF HEAD, RIGHT SHOULDER, RIGHT HIP AFTER TRYING TO STOP FALL. PT REPORTS PAIN 8/10 AT THIS TIME.
[2019-03-21] MEDS ORDERED: HYDROmorphone 1 MG/ML, 1ML INJ ONE (17:11)
--- NOTE | 2019-03-21 17:28 | NUR ---
PT MEDICATED PER EMAR. ICY APPLIED TO RT HIP, RT SHOULDER, RT SIDE OF HEAD. PT AWAITING IMAGING.
[2019-03-21] MEDS ORDERED: HYDROmorphone 1 MG/ML, 1ML INJ IM ONE (17:30)
--- NOTE | 2019-03-21 18:28 | NUR ---
PT RETURNED FROM CT. RECLINED LAYING BACK IN BED. ICE PACKS IN PLACE, FRIEND AT BEDSIDE. NAD NOTED AT THIS TIME. SIDE RAILS UP, CALL LIGHT IN REACH. AWAITING XRAYS.
--- NOTE | 2019-03-21 18:59 | NUR ---
REPORT TO CONNOR LAMAS.
[2019-03-21 20:13] VITALS: BP 124/80
== END 2019-03-21 20:29 | disposition home or self-care (01) ==
LOC: ED 20:28
DX: S13.4XXA Sprain of ligaments of cervical spine, initial encounter (principal); S33.5XXA Sprain of ligaments of lumbar spine, initial encounter; S40.011A Contusion of right shoulder, initial encounter; S70.01XA Contusion of right hip, initial encounter; S00.03XA Contusion of scalp, initial encounter; I10 Essential (primary) hypertension; Z90.49 Acquired absence of other specified parts of digestive tract; Z90.710 Acquired absence of both cervix and uterus; W18.39XA Other fall on same level, initial encounter; Y93.89 Activity, other specified; Y92.098 Other place in other non-institutional residence as the place of occurrence of the external cause; Y99.8 Other external cause status
CPT/HCPCS: 70450; 72110; 72125; 73030; 73502; 96372; 99284; J1170

== ENCOUNTER 2019-04-01 08:19 | Outpatient (CLI) | payer OTHER | END 2019-04-01 23:59 | disposition home or self-care (01) | LOC: CFH 08:19 | PROVIDERS: ATTEND Family Medicine | DX: Z12.31 Encounter for screening mammogram for malignant neoplasm of breast (principal); N64.89 Other specified disorders of breast | CPT/HCPCS: 77063; 77067 ==

== ENCOUNTER → 2019-04-21 | Outpatient (CLI) | payer OTHER ==
[~2019-04-21] MED LIST changes: +LIDO15SO2 MM; -LIDO15SO3 MM; -VALA500T PO; +VALA500T8 PO
[2019-04-21 16:38] LABS: BASOPHILS % (AUTO) 0 % (0-1); EOSINOPHILS # (AUTO) 0.34 x10^3/uL (0-0.4); EOSINOPHILS % (AUTO) 7 % (1-7); LYMPHOCYTES # (AUTO) 0.44 x10^3/uL (1-3.4); LYMPHOCYTES % (AUTO) 9 % (22-44); MD NO; MEAN CORPUSCULAR HEMOGLOBIN 26.9 pg (27.0-34.8); MEAN CORPUSCULAR HGB CONC 32.3 g/dL (32.4-35.8); MEAN CORPUSCULAR VOLUME 83.2 fL (80-100); MONOCYTES # (AUTO) 0.42 x10^3/uL (0.2-0.8); MONOCYTES % (AUTO) 8 % (2-9); NEUTROPHILS # (AUTO) 3.76 x10^3/uL (1.8-6.8); NEUTROPHILS % (AUTO) 76 % (42-75); PLATELET COUNT 237 x10^3/uL (130-400); RED CELL DISTRIBUTION WIDTH 16.6 % (9.6-15.2)
[2019-04-21 16:41] LABS: ALANINE AMINOTRANSFERASE 28 U/L (12-78); ALBUMIN 2.9 g/dL (3.4-5.0); ANION GAP 6 mmol/L (5-15); CHLORIDE 104 mmol/L (98-107); CREATININE 1.01 mg/dL (0.55-1.02)
[2019-04-21 16:43] LABS: ALKALINE PHOSPHATASE 104 U/L (45-117); BILIRUBIN,TOTAL 0.2 mg/dL (0.2-1.0); TOTAL PROTEIN 7.3 g/dL (6.4-8.2)
== END | disposition home or self-care (01) ==
LOC: LAB 16:00
PROVIDERS: ATTEND Specialist
DX: C79.51 Secondary malignant neoplasm of bone (principal); C90.00 Multiple myeloma not having achieved remission; D50.9 Iron deficiency anemia, unspecified; D80.1 Nonfamilial hypogammaglobulinemia; D70.9 Neutropenia, unspecified; Z79.899 Other long term (current) drug therapy
CPT/HCPCS: 36415; 80053; 82232; 82784; 83883; 84155; 84156; 84165; 84166; 85025; 86334; 86335

== ENCOUNTER 2019-05-15 19:13 | Emergency (ER) | payer OTHER ==
[~2019-05-15] VITALS: Ht 157.5 cm; Wt 96.4 kg
--- NOTE | 2019-05-15 19:56 | NUR ---
THIS IS A 64 YO FEMALE COMING IN FOR COUGH/SOB FOR THE PAST DAY, DENIES RECENT TRAVEL, DENIES BEING AROUND ANYONE WHO RECENTLY TRAVELED. 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 PATIENT SPEAKING IN FULL SENTENCES, A&OX4, RESPIRATIONS EVEN AND UNLABORED ALTHOUGH TACHYPNIC. SPO2 AND BP MONITORING IN PLACE, VSS, NAD, CALL LIGHT IN REACH. ERP TO BEDSIDE TO COMPLED RESPIRATORY PANEL/FLU SWAB/THROAT SWAB. PATIENT TO XRAY AT THIS TIME
--- NOTE | 2019-05-15 20:10 | NUR ---
PATIENT AMBULATORY WITH STEADY GAIT TO RESTROOM
--- NOTE | 2019-05-15 20:18 | NUR ---
[employer] GLAZER IN ROOM
[2019-05-15 20:41] LABS: RAPID INFLUENZA A Negative (Negative); RAPID INFLUENZA B Negative (Negative)
[2019-05-15 20:50] LABS: BASOPHILS # (AUTO) 0.05 x10^3/uL (0-0.1); BASOPHILS % (AUTO) 1 % (0-1); EOSINOPHILS # (AUTO) 0.77 x10^3/uL (0-0.4); EOSINOPHILS % (AUTO) 14 % (1-7); LYMPHOCYTES # (AUTO) 0.47 x10^3/uL (1-3.4); LYMPHOCYTES % (AUTO) 9 % (22-44); MD NO; MEAN CORPUSCULAR HEMOGLOBIN 26.4 pg (27.0-34.8); MEAN CORPUSCULAR HGB CONC 32.2 g/dL (32.4-35.8); MEAN CORPUSCULAR VOLUME 81.9 fL (80-100); MEAN PLATELET VOLUME 8.4 fL (7.4-10.4); MONOCYTES # (AUTO) 0.21 x10^3/uL (0.2-0.8); MONOCYTES % (AUTO) 4 % (2-9); NEUTROPHILS # (AUTO) 4.01 x10^3/uL (1.8-6.8); NEUTROPHILS % (AUTO) 73 % (42-75); PLATELET COUNT 298 x10^3/uL (130-400); RED BLOOD COUNT 4.55 x10^6/uL (3.82-5.3)
[2019-05-15 20:54] LABS: ALBUMIN 2.9 g/dL (3.4-5.0); ANION GAP 6 mmol/L (5-15); CHLORIDE 107 mmol/L (98-107); CREATININE 0.98 mg/dL (0.55-1.02)
[2019-05-15 20:57] VITALS: BP 109/74
--- NOTE | 2019-05-15 21:05 | NUR ---
Patient given discharge instructions and they have confirmed that they understand the instructions. Patient ambulatory with steady gait.
== END 2019-05-15 21:12 | disposition home or self-care (01) ==
LOC: ED 20:30
DX: J06.9 Acute upper respiratory infection, unspecified (principal); Z20.828 Contact with and (suspected) exposure to other viral communicable diseases; I10 Essential (primary) hypertension
CPT/HCPCS: 36415; 71046; 80048; 82040; 83605; 85025; 87040; 87081; 87400; 87486; 87581; 87633; 87798; 87880; 99284

== ENCOUNTER → 2019-05-24 | Outpatient (CLI) | payer OTHER ==
[2019-05-24 12:57] LABS: BASOPHILS % (AUTO) 0 % (0-1); EOSINOPHILS # (AUTO) 0.58 x10^3/uL (0-0.4); EOSINOPHILS % (AUTO) 14 % (1-7); LYMPHOCYTES # (AUTO) 0.52 x10^3/uL (1-3.4); LYMPHOCYTES % (AUTO) 13 % (22-44); MD NO; MEAN CORPUSCULAR HEMOGLOBIN 26.2 pg (27.0-34.8); MEAN CORPUSCULAR HGB CONC 32.4 g/dL (32.4-35.8); MEAN CORPUSCULAR VOLUME 80.8 fL (80-100); MEAN PLATELET VOLUME 8.4 fL (7.4-10.4); MONOCYTES # (AUTO) 0.19 x10^3/uL (0.2-0.8); MONOCYTES % (AUTO) 5 % (2-9); NEUTROPHILS # (AUTO) 2.77 x10^3/uL (1.8-6.8); NEUTROPHILS % (AUTO) 68 % (42-75); PLATELET COUNT 243 x10^3/uL (130-400); RED BLOOD COUNT 4.37 x10^6/uL (3.82-5.3); RED CELL DISTRIBUTION WIDTH 18.5 % (9.6-15.2)
[2019-05-24 13:00] LABS: ALBUMIN 2.7 g/dL (3.4-5.0); ANION GAP 5 mmol/L (5-15); CALCIUM 8.8 mg/dL (8.5-10.1); CHLORIDE 108 mmol/L (98-107)
[2019-05-24 13:04] LABS: ALANINE AMINOTRANSFERASE 36 U/L (12-78); ALKALINE PHOSPHATASE 81 U/L (45-117); BILIRUBIN,TOTAL 0.4 mg/dL (0.2-1.0); TOTAL PROTEIN 6.9 g/dL (6.4-8.2)
== END | disposition home or self-care (01) ==
LOC: CFH 09:37
PROVIDERS: ATTEND Specialist
DX: C79.51 Secondary malignant neoplasm of bone (principal); C90.00 Multiple myeloma not having achieved remission; D50.9 Iron deficiency anemia, unspecified; D80.1 Nonfamilial hypogammaglobulinemia; D70.9 Neutropenia, unspecified; Z79.899 Other long term (current) drug therapy
CPT/HCPCS: 36415; 80053; 82232; 82784; 83883; 84155; 84156; 84165; 84166; 85025; 86334; 86335

== ENCOUNTER 2019-06-22 13:07 | Outpatient (CLI) | payer OTHER ==
[~2019-06-22] VITALS: Ht 157.5 cm; Wt 95.6 kg
[2019-06-22] MEDS ORDERED: LACTATED RINGERS 1,000 ML IV SCH (13:34)
[2019-06-22 13:36] VITALS: BP 115/82
[2019-06-22] MEDS ORDERED: CHLORHEXIDINE 15 ML UDC ONE (13:58)
[2019-06-22] MEDS ORDERED: CHLORHEXIDINE 15 ML UDC MM ONE (14:00)
[2019-06-22] MEDS ORDERED: SUCCINYLCHOLINE 20 MG/ML, 10ML ONE (16:03)
[2019-06-22] MEDS ORDERED: ROCURONIUM 10 MG/ML,10ML ONE (16:03)
[2019-06-22] MEDS ORDERED: DEXAMETHASONE 4 MG/ML, 1ML ONE (16:03)
[2019-06-22] MEDS ORDERED: PROPOFOL 10 MG/ML, 20ML ONE (16:03)
[2019-06-22] MEDS ORDERED: ONDANSETRON 2MG/ML, 2ML ONE ×2 (16:03→17:47)
[2019-06-22] MEDS ORDERED: FENTANYL PF 100 MCG/2ML ONE ×2 (16:19→16:37)
[2019-06-22] MEDS ORDERED: MIDAZOLAM 1 MG/ML, 2ML ONE (16:37)
[2019-06-22] MEDS ORDERED: OXYcodone 5 MG/5 ML ORAL.SOL UDC ONE (17:47)
[2019-06-22] MEDS ORDERED: OXYcodone 5 MG/5 ML ORAL.SOL UDC PO PRN (18:00)
[2019-06-22] MEDS ORDERED: ONDANSETRON 2MG/ML, 2ML IVPush ONE (18:00)
== END 2019-06-22 18:50 | disposition home or self-care (01) ==
LOC: RAD 13:07
PROVIDERS: ATTEND Nurse Practitioner
DX: M25.511 Pain in right shoulder (principal); M75.121 Complete rotator cuff tear or rupture of right shoulder, not specified as traumatic; S46.111A Strain of muscle, fascia and tendon of long head of biceps, right arm, initial encounter; M47.816 Spondylosis without myelopathy or radiculopathy, lumbar region; M48.061 Spinal stenosis, lumbar region without neurogenic claudication; M54.12 Radiculopathy, cervical region; F41.9 Anxiety disorder, unspecified; F32.9 Major depressive disorder, single episode, unspecified; E66.9 Obesity, unspecified; Z79.891 Long term (current) use of opiate analgesic; Z79.899 Other long term (current) drug therapy; Z85.820 Personal history of malignant melanoma of skin; Z88.5 Allergy status to narcotic agent; Z88.8 Allergy status to other drugs, medicaments and biological substances; Z92.21 Personal history of antineoplastic chemotherapy; Z90.710 Acquired absence of both cervix and uterus; Z98.84 Bariatric surgery status; Z98.890 Other specified postprocedural states; Z80.3 Family history of malignant neoplasm of breast; Z82.0 Family history of epilepsy and other diseases of the nervous system; X58.XXXA Exposure to other specified factors, initial encounter; Y93.89 Activity, other specified; Y92.89 Other specified places as the place of occurrence of the external cause; Y99.8 Other external cause status
CPT/HCPCS: 73221; 93005; J0330; J1100; J2250; J2405; J2704; J3010

== ENCOUNTER 2019-06-23 14:58 | Outpatient (CLI) | payer OTHER ==
[2019-06-23 15:20] LABS: BASOPHILS # (AUTO) 0.06 x10^3/uL (0-0.1); BASOPHILS % (AUTO) 1 % (0-1); EOSINOPHILS # (AUTO) 0.02 x10^3/uL (0-0.4); EOSINOPHILS % (AUTO) 0 % (1-7); LYMPHOCYTES # (AUTO) 0.94 x10^3/uL (1-3.4); LYMPHOCYTES % (AUTO) 17 % (22-44); MD NO; MEAN CORPUSCULAR HEMOGLOBIN 25.9 pg (27.0-34.8); MEAN CORPUSCULAR HGB CONC 32.3 g/dL (32.4-35.8); MEAN CORPUSCULAR VOLUME 80.3 fL (80-100); MEAN PLATELET VOLUME 7.4 fL (7.4-10.4); MONOCYTES # (AUTO) 0.85 x10^3/uL (0.2-0.8); MONOCYTES % (AUTO) 16 % (2-9); NEUTROPHILS # (AUTO) 3.51 x10^3/uL (1.8-6.8); NEUTROPHILS % (AUTO) 65 % (42-75); PLATELET COUNT 289 x10^3/uL (130-400); RED BLOOD COUNT 4.28 x10^6/uL (3.82-5.3); RED CELL DISTRIBUTION WIDTH 18.5 % (9.6-15.2)
[2019-06-23 15:32] LABS: ALANINE AMINOTRANSFERASE 21 U/L (12-78); ALBUMIN 2.9 g/dL (3.4-5.0); ANION GAP 5 mmol/L (5-15); CALCIUM 8.7 mg/dL (8.5-10.1); CHLORIDE 105 mmol/L (98-107)
[2019-06-23 15:35] LABS: ALKALINE PHOSPHATASE 103 U/L (45-117); BILIRUBIN,TOTAL 0.2 mg/dL (0.2-1.0); CREATININE 1.18 mg/dL (0.55-1.02); TOTAL PROTEIN 6.9 g/dL (6.4-8.2)
== END 2019-06-23 23:59 | disposition home or self-care (01) ==
LOC: LAB 14:58
PROVIDERS: ATTEND Specialist
DX: C90.00 Multiple myeloma not having achieved remission (principal); C79.51 Secondary malignant neoplasm of bone; D50.9 Iron deficiency anemia, unspecified; D80.1 Nonfamilial hypogammaglobulinemia; D70.9 Neutropenia, unspecified; Z79.899 Other long term (current) drug therapy
CPT/HCPCS: 36415; 80053; 82232; 82784; 83883; 84155; 84156; 84165; 84166; 85025; 86334; 86335

== ENCOUNTER 2019-07-30 12:54 | Outpatient (CLI) | payer OTHER ==
[2019-07-30 15:48] LABS: MEAN CORPUSCULAR HEMOGLOBIN 25.5 pg (27.0-34.8); MEAN CORPUSCULAR HGB CONC 31.8 g/dL (32.4-35.8); MEAN CORPUSCULAR VOLUME 80.2 fL (80-100); MEAN PLATELET VOLUME 8.7 fL (7.4-10.4); PLATELET COUNT 296 x10^3/uL (130-400); RED BLOOD COUNT 4.66 x10^6/uL (3.82-5.3); RED CELL DISTRIBUTION WIDTH 18.5 % (9.6-15.2)
[2019-07-30 15:59] LABS: ALANINE AMINOTRANSFERASE 34 U/L (12-78); ANION GAP 5 mmol/L (5-15); CALCIUM 8.8 mg/dL (8.5-10.1); CHLORIDE 104 mmol/L (98-107); CREATININE 1.02 mg/dL (0.55-1.02)
[2019-07-30 16:02] LABS: ALKALINE PHOSPHATASE 161 U/L (45-117); BILIRUBIN,TOTAL 0.4 mg/dL (0.2-1.0); TOTAL PROTEIN 7.2 g/dL (6.4-8.2)
[2019-07-30 16:26] LABS: MD YES
[2019-07-30 16:29] LABS: BAND#(MANUAL) 0.04 x10^3/uL; BANDS%(MANUAL) 1 % (0-7); EOS% (MANUAL) 5 % (1-7); LYMPH#(MANUAL) 0.64 x10^3/uL (1-3.4); LYMPHS% (MANUAL) 16 % (22-44); MONOS#(MANUAL) 0.48 x10^3/uL (0.3-2.7); MONOS% (MANUAL) 12 % (2-9); SEG#(MANUAL) 2.64 x10^3/uL (1.8-6.8); SEGS% (MANUAL) 66 % (42-75)
[2019-07-30 16:31] LABS: ANISOCYTOSIS 1+
[2019-07-30 16:32] LABS: <PLATELET ESTIMATE> ADEQUATE; <PLT MORPHOLOGY> NORMAL PLT MORPH
== END 2019-07-30 23:59 | disposition home or self-care (01) ==
LOC: CFH 12:54
PROVIDERS: ATTEND Specialist
DX: C79.51 Secondary malignant neoplasm of bone (principal); C90.00 Multiple myeloma not having achieved remission; D80.1 Nonfamilial hypogammaglobulinemia; D50.9 Iron deficiency anemia, unspecified; D70.9 Neutropenia, unspecified; Z79.899 Other long term (current) drug therapy
CPT/HCPCS: 36415; 80053; 82232; 82784; 83883; 84155; 84156; 84165; 84166; 85025; 86334; 86335

== ENCOUNTER → 2019-08-20 | Outpatient (CLI) | payer OTHER ==
[2019-08-20 13:25] LABS: MEAN CORPUSCULAR HEMOGLOBIN 26.2 pg (27.0-34.8); MEAN CORPUSCULAR HGB CONC 32.6 g/dL (32.4-35.8); MEAN CORPUSCULAR VOLUME 80.2 fL (80-100); MEAN PLATELET VOLUME 8.3 fL (7.4-10.4); PLATELET COUNT 256 x10^3/uL (130-400); RED BLOOD COUNT 4.76 x10^6/uL (3.82-5.3); RED CELL DISTRIBUTION WIDTH 17.6 % (9.6-15.2)
[2019-08-20 13:30] LABS: CHLORIDE 105 mmol/L (98-107)
[2019-08-20 13:36] LABS: ALANINE AMINOTRANSFERASE 52 U/L (12-78); ALBUMIN 2.8 g/dL (3.4-5.0); ALKALINE PHOSPHATASE 139 U/L (45-117); ANION GAP 5 mmol/L (5-15); BILIRUBIN,TOTAL 0.3 mg/dL (0.2-1.0); CALCIUM 8.2 mg/dL (8.5-10.1); CREATININE 1.16 mg/dL (0.55-1.02); TOTAL PROTEIN 7.5 g/dL (6.4-8.2)
[2019-08-20 14:39] LABS: BASOPHILS % (AUTO) 0 % (0-1); EOSINOPHILS # (AUTO) 0.27 x10^3/uL (0-0.4); EOSINOPHILS % (AUTO) 8 % (1-7); LYMPHOCYTES # (AUTO) 0.55 x10^3/uL (1-3.4); LYMPHOCYTES % (AUTO) 17 % (22-44); MD SCAN; MONOCYTES % (AUTO) 13 % (2-9); NEUTROPHILS # (AUTO) 1.94 x10^3/uL (1.8-6.8); NEUTROPHILS % (AUTO) 62 % (42-75)
== END | disposition home or self-care (01) ==
LOC: CFH 10:59
PROVIDERS: ATTEND Specialist
DX: C90.00 Multiple myeloma not having achieved remission (principal); C79.51 Secondary malignant neoplasm of bone; D80.1 Nonfamilial hypogammaglobulinemia; D70.9 Neutropenia, unspecified; D50.9 Iron deficiency anemia, unspecified; Z79.899 Other long term (current) drug therapy
CPT/HCPCS: 36415; 80053; 82232; 82784; 83883; 84155; 84156; 84165; 84166; 85025; 86334; 86335

== ENCOUNTER → 2019-09-21 | Outpatient (CLI) | payer OTHER ==
[2019-09-21 12:48] LABS: MEAN CORPUSCULAR HEMOGLOBIN 25.6 pg (27.0-34.8); MEAN CORPUSCULAR VOLUME 80.2 fL (80-100); MEAN PLATELET VOLUME 8.4 fL (7.4-10.4); PLATELET COUNT 231 x10^3/uL (130-400); RED BLOOD COUNT 4.71 x10^6/uL (3.82-5.3)
[2019-09-21 13:46] LABS: MD SCAN
[2019-09-21 13:47] LABS: BASOPHILS # (AUTO) 0.04 x10^3/uL (0-0.1); BASOPHILS % (AUTO) 1 % (0-1); EOSINOPHILS # (AUTO) 0.17 x10^3/uL (0-0.4); EOSINOPHILS % (AUTO) 5 % (1-7); LYMPHOCYTES # (AUTO) 0.51 x10^3/uL (1-3.4); LYMPHOCYTES % (AUTO) 14 % (22-44); MONOCYTES # (AUTO) 0.57 x10^3/uL (0.2-0.8); MONOCYTES % (AUTO) 16 % (2-9); NEUTROPHILS # (AUTO) 2.38 x10^3/uL (1.8-6.8); NEUTROPHILS % (AUTO) 65 % (42-75)
[2019-09-21 14:00] LABS: CHLORIDE 108 mmol/L (98-107)
[2019-09-21 14:23] LABS: ALANINE AMINOTRANSFERASE 50 U/L (12-78); ALBUMIN 2.6 g/dL (3.4-5.0); ALKALINE PHOSPHATASE 151 U/L (45-117); ANION GAP 8 mmol/L (5-15); BILIRUBIN,TOTAL 0.2 mg/dL (0.2-1.0); CALCIUM 8.9 mg/dL (8.5-10.1); CREATININE 1.28 mg/dL (0.55-1.02); TOTAL PROTEIN 6.9 g/dL (6.4-8.2)
== END | disposition home or self-care (01) ==
LOC: CFH 09:30
PROVIDERS: ATTEND Specialist
DX: C79.51 Secondary malignant neoplasm of bone (principal); D50.9 Iron deficiency anemia, unspecified; C90.00 Multiple myeloma not having achieved remission; D80.1 Nonfamilial hypogammaglobulinemia; D70.9 Neutropenia, unspecified; Z79.899 Other long term (current) drug therapy
CPT/HCPCS: 36415; 80053; 82232; 82784; 83883; 84155; 84156; 84165; 84166; 85025; 86334; 86335

== ENCOUNTER → 2019-10-15 | Outpatient (CLI) | payer OTHER ==
[2019-10-15 08:59] LABS: BASOPHILS % (AUTO) 0 % (0-1); EOSINOPHILS # (AUTO) 0.64 x10^3/uL (0-0.4); EOSINOPHILS % (AUTO) 22 % (1-7); LYMPHOCYTES # (AUTO) 0.33 x10^3/uL (1-3.4); LYMPHOCYTES % (AUTO) 11 % (22-44); MD NO; MEAN CORPUSCULAR HEMOGLOBIN 26.1 pg (27.0-34.8); MEAN CORPUSCULAR HGB CONC 31.7 g/dL (32.4-35.8); MEAN CORPUSCULAR VOLUME 82.4 fL (80-100); MEAN PLATELET VOLUME 8.1 fL (7.4-10.4); MONOCYTES # (AUTO) 0.34 x10^3/uL (0.2-0.8); MONOCYTES % (AUTO) 11 % (2-9); NEUTROPHILS # (AUTO) 1.65 x10^3/uL (1.8-6.8); NEUTROPHILS % (AUTO) 56 % (42-75); PLATELET COUNT 178 x10^3/uL (130-400); RED BLOOD COUNT 4.32 x10^6/uL (3.82-5.3)
[2019-10-15 09:07] LABS: ALBUMIN 2.8 g/dL (3.4-5.0); ANION GAP 3 mmol/L (5-15); CALCIUM 8.3 mg/dL (8.5-10.1); CHLORIDE 105 mmol/L (98-107)
[2019-10-15 09:10] LABS: ALANINE AMINOTRANSFERASE 27 U/L (12-78); ALKALINE PHOSPHATASE 105 U/L (45-117); BILIRUBIN,TOTAL 0.3 mg/dL (0.2-1.0); CREATININE 1.22 mg/dL (0.55-1.02)
== END | disposition home or self-care (01) ==
LOC: LAB 08:32
PROVIDERS: ATTEND Specialist
DX: C79.51 Secondary malignant neoplasm of bone (principal); C90.00 Multiple myeloma not having achieved remission; D50.9 Iron deficiency anemia, unspecified; D80.1 Nonfamilial hypogammaglobulinemia; D70.9 Neutropenia, unspecified; Z79.899 Other long term (current) drug therapy
CPT/HCPCS: 36415; 80053; 82232; 82784; 83883; 84155; 84156; 84165; 84166; 85025; 86334; 86335

== ENCOUNTER → 2019-11-17 | Outpatient (CLI) | payer OTHER ==
[~2019-11-17] MED LIST changes: -MISO100T4 PO; +MISO100T7 PO
[2019-11-17 10:55] LABS: BASOPHILS % (AUTO) 0 % (0-1); EOSINOPHILS # (AUTO) 0.75 x10^3/uL (0-0.4); EOSINOPHILS % (AUTO) 19 % (1-7); LYMPHOCYTES % (AUTO) 10 % (22-44); MD NO; MEAN CORPUSCULAR HGB CONC 31.4 g/dL (32.4-35.8); MEAN CORPUSCULAR VOLUME 82.8 fL (80-100); MONOCYTES % (AUTO) 13 % (2-9); NEUTROPHILS # (AUTO) 2.25 x10^3/uL (1.8-6.8); NEUTROPHILS % (AUTO) 58 % (42-75); PLATELET COUNT 250 x10^3/uL (130-400); RED BLOOD COUNT 4.55 x10^6/uL (3.82-5.3); RED CELL DISTRIBUTION WIDTH 19.6 % (9.6-15.2)
[2019-11-17 11:02] LABS: ALBUMIN 2.9 g/dL (3.4-5.0); ANION GAP 5 mmol/L (5-15); CALCIUM 9.1 mg/dL (8.5-10.1); CHLORIDE 106 mmol/L (98-107)
[2019-11-17 11:06] LABS: ALANINE AMINOTRANSFERASE 29 U/L (12-78); ALKALINE PHOSPHATASE 110 U/L (45-117); BILIRUBIN,TOTAL 0.2 mg/dL (0.2-1.0); CREATININE 1.12 mg/dL (0.55-1.02); TOTAL PROTEIN 6.8 g/dL (6.4-8.2)
== END | disposition home or self-care (01) ==
LOC: LAB 10:24
PROVIDERS: ATTEND Specialist
DX: C79.51 Secondary malignant neoplasm of bone (principal); C90.00 Multiple myeloma not having achieved remission; D50.9 Iron deficiency anemia, unspecified; D80.1 Nonfamilial hypogammaglobulinemia; D70.9 Neutropenia, unspecified; Z79.899 Other long term (current) drug therapy
CPT/HCPCS: 36415; 80053; 82232; 82784; 83883; 84155; 84156; 84165; 84166; 85025; 86334; 86335

== ENCOUNTER → 2019-11-26 | Outpatient (CLI) | payer OTHER | END | disposition home or self-care (01) | LOC: RAD 12:10 | PROVIDERS: ATTEND Nurse Practitioner | DX: C79.51 Secondary malignant neoplasm of bone (principal); C90.00 Multiple myeloma not having achieved remission; M51.36 Other intervertebral disc degeneration, lumbar region; M48.061 Spinal stenosis, lumbar region without neurogenic claudication; M25.78 Osteophyte, vertebrae; D80.1 Nonfamilial hypogammaglobulinemia; D50.9 Iron deficiency anemia, unspecified; D70.9 Neutropenia, unspecified; Z79.899 Other long term (current) drug therapy | CPT/HCPCS: 72100 ==

== ENCOUNTER → 2019-12-16 | Outpatient (CLI) | payer OTHER | END | disposition home or self-care (01) | LOC: STAR 11:17 | PROVIDERS: ATTEND Specialist | DX: Z01.812 Encounter for preprocedural laboratory examination (principal); Z20.828 Contact with and (suspected) exposure to other viral communicable diseases | CPT/HCPCS: 36415; 87635 ==

== ENCOUNTER → 2019-12-16 | Outpatient (CLI) | payer OTHER ==
[2019-12-16 11:10] LABS: BASOPHILS % (AUTO) 2 % (0-1); EOSINOPHILS % (AUTO) 8 % (1-7); LYMPHOCYTES % (AUTO) 20 % (22-44); MD NO; MEAN CORPUSCULAR HEMOGLOBIN 26.3 pg (27.0-34.8); MEAN CORPUSCULAR HGB CONC 32.2 g/dL (32.4-35.8); MEAN PLATELET VOLUME 7.3 fL (7.4-10.4); MONOCYTES % (AUTO) 13 % (2-9); NEUTROPHILS % (AUTO) 57 % (42-75); PLATELET COUNT 249 x10^3/uL (130-400); RED BLOOD COUNT 4.68 x10^6/uL (3.82-5.3); RED CELL DISTRIBUTION WIDTH 18.9 % (9.6-15.2)
[2019-12-16 11:20] LABS: ALANINE AMINOTRANSFERASE 125 U/L (12-78); ALBUMIN 3.1 g/dL (3.4-5.0); ANION GAP 8 mmol/L (5-15); CALCIUM 8.2 mg/dL (8.5-10.1); CHLORIDE 109 mmol/L (98-107)
[2019-12-16 11:22] LABS: ALKALINE PHOSPHATASE 190 U/L (45-117); BILIRUBIN,TOTAL 0.2 mg/dL (0.2-1.0); CREATININE 1.05 mg/dL (0.55-1.02); TOTAL PROTEIN 7.9 g/dL (6.4-8.2)
== END | disposition home or self-care (01) ==
LOC: LAB 10:46
PROVIDERS: ATTEND Specialist
DX: C79.51 Secondary malignant neoplasm of bone (principal); C90.00 Multiple myeloma not having achieved remission; D50.9 Iron deficiency anemia, unspecified; D70.9 Neutropenia, unspecified; D80.1 Nonfamilial hypogammaglobulinemia; Z79.899 Other long term (current) drug therapy
CPT/HCPCS: 36415; 80053; 82232; 82784; 83883; 84155; 84156; 84165; 84166; 85025; 86334; 86335

== ENCOUNTER 2019-12-20 11:56 | Day surgery (SDC) | payer OTHER ==
[~2019-12-20] VITALS: Ht 157.5 cm; Wt 99.7 kg
[~2019-12-20 11:56] MED LIST changes: +DIPHENHYDRAMINE 50 MG/ML, 1ML ONE
[2019-12-20 13:03] VITALS: BP 135/74
[2019-12-20] MEDS ORDERED: OMEP20TA62 PO (13:12)
[2019-12-20] MEDS ORDERED: CHLORHEXIDINE 15 ML UDC ONE (13:25)
[2019-12-20] MEDS ORDERED: LACTATED RINGERS 1,000 ML IV SCH (13:30)
[2019-12-20] MEDS ORDERED: CHLORHEXIDINE 15 ML UDC MM ONE (13:30)
[2019-12-20] MEDS ORDERED: ONDANSETRON 2MG/ML, 2ML ONE (13:50)
[2019-12-20] MEDS ORDERED: PROPOFOL 10 MG/ML, 20ML ONE (13:50)
[2019-12-20] MEDS ORDERED: SUCCINYLCHOLINE 20 MG/ML, 10ML ONE (13:50)
[2019-12-20] MEDS ORDERED: ROCURONIUM 10 MG/ML,10ML ONE (13:50)
[2019-12-20] MEDS ORDERED: DEXAMETHASONE 4 MG/ML, 1ML ONE (13:50)
[2019-12-20] MEDS ORDERED: SUGAMMADEX 200 MG/2 ML IVPush ONE (13:50)
[2019-12-20] MEDS ORDERED: OXYcodone 5 MG/5 ML ORAL.SOL UDC PO PRN (14:00)
[2019-12-20] MEDS ORDERED: MEPERIDINE/PF 25MG/0.5ML IVPush PRN (14:00)
[2019-12-20] MEDS ORDERED: ACETAMINOPHEN 325 MG TABLET PO PRN (14:00)
[2019-12-20] MEDS ORDERED: ONDANSETRON 2MG/ML, 2ML IVPush PRN (14:00)
[2019-12-20] MEDS ORDERED: HYDROmorphone 1 MG/ML, 1ML INJ IVPush PRN (14:00)
[2019-12-20] MEDS ORDERED: FENTANYL PF 100 MCG/2ML IV PRN (14:00)
[2019-12-20] MEDS ORDERED: LABETALOL 5MG/ML, 20ML IV PRN (14:00)
[2019-12-20] MEDS ORDERED: hydrALAzine 20 MG/ML, 1ML IV PRN (14:00)
[2019-12-20] MEDS ORDERED: DIAZEPAM 5 MG/ML, 2ML IVPush PRN (14:00)
[2019-12-20] MEDS ORDERED: GADOTERATE 10 MMOL/20 ML SYR ONE (14:11)
== END 2019-12-20 16:20 | disposition home or self-care (01) ==
LOC: OUT 11:56 → EDSTATUS 14:00 → OUT 16:20
PROVIDERS: ATTEND Specialist
DX: D80.1 Nonfamilial hypogammaglobulinemia (principal); M51.36 Other intervertebral disc degeneration, lumbar region; C90.00 Multiple myeloma not having achieved remission; K21.9 Gastro-esophageal reflux disease without esophagitis; F32.9 Major depressive disorder, single episode, unspecified; F41.1 Generalized anxiety disorder; N18.9 Chronic kidney disease, unspecified; E66.9 Obesity, unspecified; Z88.5 Allergy status to narcotic agent; Z88.8 Allergy status to other drugs, medicaments and biological substances; D50.9 Iron deficiency anemia, unspecified; Z90.710 Acquired absence of both cervix and uterus; Z90.49 Acquired absence of other specified parts of digestive tract; Z98.890 Other specified postprocedural states; Z68.41 Body mass index [BMI] 40.0-44.9, adult; Z79.82 Long term (current) use of aspirin; Z79.899 Other long term (current) drug therapy; Z72.89 Other problems related to lifestyle; Z80.3 Family history of malignant neoplasm of breast; Z82.49 Family history of ischemic heart disease and other diseases of the circulatory system
CPT/HCPCS: 72158; 93005; A9575; J0330; J1100; J2405; J2704; J7120

== ENCOUNTER → 2019-12-29 | Outpatient (CLI) | payer OTHER ==
[~2019-12-29] MED LIST changes: -DIPHENHYDRAMINE 50 MG/ML, 1ML ONE; +OMEP20TA62 PO
== END | disposition home or self-care (01) ==
LOC: PETCFH 08:57
PROVIDERS: ATTEND Specialist
DX: C90.00 Multiple myeloma not having achieved remission (principal); D50.9 Iron deficiency anemia, unspecified; D80.1 Nonfamilial hypogammaglobulinemia; N94.89 Other specified conditions associated with female genital organs and menstrual cycle
CPT/HCPCS: 78815; A9552

== ENCOUNTER 2020-01-04 07:15 | Day surgery (SDC) | payer BC, OTHER ==
[~2020-01-04] VITALS: Ht 157.5 cm; Wt 98.2 kg
[~2020-01-04 07:15] MED LIST changes: -MISO100T PO; +MISO100T2 PO
[2020-01-04 08:00] VITALS: BP 136/84
[2020-01-04] MEDS ORDERED: CHLORHEXIDINE 15 ML UDC MM ONE (08:00)
[2020-01-04] MEDS ORDERED: LACTATED RINGERS 1,000 ML IV SCH (08:00)
[2020-01-04] MEDS ORDERED: CHLORHEXIDINE 15 ML UDC ONE (08:05)
[2020-01-04 08:27] LABS: BASOPHILS % (AUTO) 1 % (0-1); EOSINOPHILS % (AUTO) 11 % (1-7); LYMPHOCYTES % (AUTO) 15 % (22-44); MEAN CORPUSCULAR HEMOGLOBIN 26.9 pg (27.0-34.8); MEAN CORPUSCULAR HGB CONC 32.2 g/dL (32.4-35.8); MEAN PLATELET VOLUME 7.9 fL (7.4-10.4); MONOCYTES % (AUTO) 13 % (2-9); NEUTROPHILS % (AUTO) 61 % (42-75); PLATELET COUNT 221 x10^3/uL (130-400); RED BLOOD COUNT 4.09 x10^6/uL (3.82-5.3); RED CELL DISTRIBUTION WIDTH 19.7 % (9.6-15.2)
[2020-01-04] MEDS ORDERED: FENTANYL PF 100 MCG/2ML IV PRN (09:00)
[2020-01-04] MEDS ORDERED: HYDROcodone/APAP 7.5-325MG/15ML UDC PO PRN (09:00)
[2020-01-04] MEDS ORDERED: OXYcodone 5 MG/5 ML ORAL.SOL UDC PO PRN (09:00)
[2020-01-04 09:10] LABS: MD SCAN
[2020-01-04] MEDS ORDERED: FENTANYL PF 100 MCG/2ML ONE (09:47)
[2020-01-04] MEDS ORDERED: MIDAZOLAM 1 MG/ML, 2ML ONE (09:47)
[2020-01-04] MEDS ORDERED: PROPOFOL 10 MG/ML, 20ML ONE (09:55)
[2020-01-04] MEDS ORDERED: SUCCINYLCHOLINE 20 MG/ML, 10ML ONE (09:55)
[2020-01-04] MEDS ORDERED: ROCURONIUM 10MG/ML,5ML ONE (09:55)
== END 2020-01-04 12:40 | disposition home or self-care (01) ==
LOC: OUT 07:15
PROVIDERS: ATTEND Specialist
DX: D50.9 Iron deficiency anemia, unspecified (principal); Z20.828 Contact with and (suspected) exposure to other viral communicable diseases; C90.00 Multiple myeloma not having achieved remission; C79.51 Secondary malignant neoplasm of bone; D80.1 Nonfamilial hypogammaglobulinemia; N18.9 Chronic kidney disease, unspecified; Z79.891 Long term (current) use of opiate analgesic; Z79.899 Other long term (current) drug therapy; Z88.5 Allergy status to narcotic agent; Z88.6 Allergy status to analgesic agent; Z90.49 Acquired absence of other specified parts of digestive tract; Z90.710 Acquired absence of both cervix and uterus; Z92.21 Personal history of antineoplastic chemotherapy; Z98.84 Bariatric surgery status; Z98.890 Other specified postprocedural states; Z80.3 Family history of malignant neoplasm of breast; Z81.8 Family history of other mental and behavioral disorders
CPT/HCPCS: 36415; 38222; 77012; 85025; 85060; 85097; 87635; 88237; 88264; 88280; 88305; 88311; 88341; 88342; 88360; J0330; J2250; J2704; J3010; J7120; 88313

== ENCOUNTER 2020-01-10 11:16 | Inpatient (IN) | payer OTHER ==
[~2020-01-10] VITALS: Ht 157.5 cm; Wt 102.8 kg
--- NOTE | 2020-01-10 11:37 | NUR ---
C/O PEREZ X 9 DAYS, VOMITED LAST NOC. + PHOTOPHOBIA. DENIES HX MIGRAINES. COUGH X 1 YR POST PNEUMONIA. SENSE OF SMELL & TASTE INTACT. TAKES OXYCODONE FOR TORN ROTATOR CUFF; LAST DOSE 10MG AT 0600. HAS ASLO TAKEN TYLENOL AND EXCEDRIN FOR PEREZ PAIN. RESP EVEN & UNLABORED, SPEECH CLEAR, SKIN WNL. NO FOOD INTAKE TODAY, BUT HAS BEEN DRINKING WATER. DENIES NAUSEA CURRENTLY
[2020-01-10] MEDS ORDERED: OXYC10TA6 PO (11:45)
[2020-01-10] MEDS ORDERED: DIPHENHYDRAMINE 50 MG/ML, 1ML IVPush ONE (12:30)
[2020-01-10] MEDS ORDERED: METOCLOPRAMIDE 5 MG/ML, 2ML IVPush ONE (12:30)
[2020-01-10] MEDS ORDERED: SODIUM CHLORIDE 0.9% 1,000ML IVBOLUS ONE (12:30)
[2020-01-10] MEDS ORDERED: DIPHENHYDRAMINE 50 MG/ML, 1ML ONE (12:45)
[2020-01-10] MEDS ORDERED: METOCLOPRAMIDE 5 MG/ML, 2ML ONE (12:45)
[2020-01-10 12:52] LABS: BASOPHILS % (AUTO) 0 % (0-1); EOSINOPHILS % (AUTO) 18 % (1-7); LYMPHOCYTES % (AUTO) 11 % (22-44); MEAN CORPUSCULAR HGB CONC 32.4 g/dL (32.4-35.8); MEAN PLATELET VOLUME 8.3 fL (7.4-10.4); MONOCYTES % (AUTO) 11 % (2-9); NEUTROPHILS % (AUTO) 59 % (42-75); PLATELET COUNT 189 x10^3/uL (130-400); RED BLOOD COUNT 3.69 x10^6/uL (3.82-5.3); RED CELL DISTRIBUTION WIDTH 21.2 % (9.6-15.2)
--- NOTE | 2020-01-10 12:52 | NUR ---
BENADRYL AND REGLAN GIVEN. NS INFUSING; SITE PATENT. PT AWAITING CT
--- NOTE | 2020-01-10 12:59 | NUR ---
TO CT PER LORNA
[2020-01-10 13:03] LABS: ALANINE AMINOTRANSFERASE 69 U/L (12-78); ALBUMIN 2.3 g/dL (3.4-5.0); ANION GAP 7 mmol/L (5-15); CALCIUM 8.4 mg/dL (8.5-10.1); CHLORIDE 108 mmol/L (98-107); CREATININE 1.04 mg/dL (0.55-1.02)
[2020-01-10 13:05] LABS: ALKALINE PHOSPHATASE 206 U/L (45-117); BILIRUBIN,TOTAL 0.3 mg/dL (0.2-1.0); TOTAL PROTEIN 7.6 g/dL (6.4-8.2)
--- NOTE | 2020-01-10 13:50 | NUR ---
LAB CALLED ED; STATE PT/PTT TO BE CANCELLED & REORDERED FOR REDRAW DUE TO INSUFFICIENT QUANTITY.
[2020-01-10] MEDS ORDERED: HYDROmorphone 1 MG/ML, 1ML INJ IV ONE (14:00)
[2020-01-10 14:06] LABS: MD SCAN
[2020-01-10] MEDS ORDERED: HYDROmorphone 1 MG/ML, 1ML INJ ONE ×2 (14:15→16:24)
--- NOTE | 2020-01-10 14:21 | NUR ---
DILAUDID GIVEN. NS INFUSING, IV SITE PATENT.
--- NOTE | 2020-01-10 14:23 | NUR ---
LAB AT BS FOR REDRAW
[2020-01-10 14:37] LABS: PLATELET (PFA) 193 x10^3/uL (130-400)
[2020-01-10 14:55] LABS: INTERNATIONAL NORMALIZED RATIO 0.99 (0.93-1.1); PROTHROMBIN TIME 10.5 Seconds (9.6-11.5)
--- NOTE | 2020-01-10 15:19 | NUR ---
DR MAI CALLED TO SPEAK W/ PT. PT'S CELL NUMBER PROVIDED ([phone]) Addendum: 01/10/20 [address] MAI NOTIFIED OF PT'S REQUEST FOR PAIN MED.
--- NOTE | 2020-01-10 15:23 | NUR ---
PT SPEAKING TO DR MAI; CELL PHONE ON SPEAKER PHONE.
--- NOTE | 2020-01-10 15:29 | NUR ---
DR MAI CALLED, SPOKE TO THIS RN. VO: ASK HOSPITALIST TO WRITE FOR MORE PAIN MED.
[2020-01-10] MEDS ORDERED: PROCHLORPERAZINE 10MG TABLET PO PRN (15:30)
[2020-01-10] MEDS ORDERED: PROMETHAZINE 25MG TABLET PO PRN (15:30)
[2020-01-10] MEDS ORDERED: LABETALOL 5MG/ML, 20ML IVPush PRN (15:30)
[2020-01-10] MEDS ORDERED: ENALAPRILAT 1.25 MG/ML, 2ML IVPush PRN (15:30)
[2020-01-10] MEDS ORDERED: ACETAMINOPHEN 325 MG TABLET PO PRN (15:30)
[2020-01-10] MEDS ORDERED: BISACODYL 10 MG SUPP PR PRN (15:30)
[2020-01-10] MEDS ORDERED: POLYETHYLENE GLYCOL 17 GM PACKET PO PRN (15:30)
--- NOTE | 2020-01-10 15:48 | NUR ---
CALLED DR BROWN'S NUMBER: LM REQUESTING RETURN CALL.
--- NOTE | 2020-01-10 15:55 | NUR ---
PT STATES SHE TOLD DR MAI THAT SHE FELL AND HIT HER HEAD "WEEKS AGO".
--- NOTE | 2020-01-10 15:55 | NUR ---
DR BROWN AT BS
--- NOTE | 2020-01-10 16:01 | NUR ---
CALLED UNIT; RECEIVING RN NOT CURRENTLY AVAILABLE BUT WILL CALL BACK.
[2020-01-10 16:04] LABS: ADP CARTRIDGE 77 SECONDS (64-123)
--- NOTE | 2020-01-10 16:16 | NUR ---
PT REPORT TO CONNOR BLANCAS FOR ROOM 547
[2020-01-10] MEDS: HYDROmorphone 1 MG/ML, 1ML INJ IV PRN ×5 (16:25→22:26)
--- NOTE | 2020-01-10 16:38 | NUR ---
RT HAND IV OCCLUDED. NEW PIV INITIATED: 20G LAC. DILAUDID GIVEN. PT TO FLOOR PER LORNA Arana/ SILVANA AND RN.
[2020-01-10] MEDS: HYDROcodone/APAP 10/325 MG TABLET PO PRN (19:26)
[2020-01-10] MEDS ORDERED: POTASSIUM CHLORIDE 40 MEQ in SODIUM CHLORIDE 0.9% 500 ML IV ONE (20:00)
[2020-01-10] MEDS: DULOXETINE 30 MG CAPSULE.DR PO SCH (20:51)
[2020-01-11] MEDS: HYDROcodone/APAP 10/325 MG TABLET PO PRN (03:17)
[2020-01-11] MEDS: HYDROmorphone 1 MG/ML, 1ML INJ IV PRN ×3 (03:21→10:28)
[2020-01-11 04:00] VITALS: BP 131/77
[2020-01-11 05:11] LABS: BASOPHILS % (AUTO) 1 % (0-1); EOSINOPHILS % (AUTO) 10 % (1-7); LYMPHOCYTES % (AUTO) 11 % (22-44); MEAN CORPUSCULAR HEMOGLOBIN 27.1 pg (27.0-34.8); MEAN CORPUSCULAR HGB CONC 32.1 g/dL (32.4-35.8); MEAN PLATELET VOLUME 8.3 fL (7.4-10.4); MONOCYTES % (AUTO) 13 % (2-9); NEUTROPHILS % (AUTO) 65 % (42-75); PLATELET COUNT 201 x10^3/uL (130-400); RED BLOOD COUNT 3.77 x10^6/uL (3.82-5.3); RED CELL DISTRIBUTION WIDTH 20.8 % (9.6-15.2)
[2020-01-11 05:17] LABS: CHLORIDE 109 mmol/L (98-107)
[2020-01-11 05:23] LABS: ALANINE AMINOTRANSFERASE 156 U/L (12-78); ALBUMIN 2.4 g/dL (3.4-5.0); ALKALINE PHOSPHATASE 367 U/L (45-117); ANION GAP 8 mmol/L (5-15); BILIRUBIN,TOTAL 0.5 mg/dL (0.2-1.0); CALCIUM 8.2 mg/dL (8.5-10.1); CREATININE 0.98 mg/dL (0.55-1.02); TOTAL PROTEIN 7.9 g/dL (6.4-8.2)
[2020-01-11 05:25] LABS: MD NO
[2020-01-11] MEDS ORDERED: EPINEPHRINE 1 MG/ML, 1ML ONE (06:15)
[2020-01-11] MEDS ORDERED: THROMBIN 5,000 UNIT VIAL TP ONE (06:15)
[2020-01-11] MEDS ORDERED: BACITRACIN OINT 500U/GM, 15 GM ONE (06:15)
[2020-01-11] MEDS ORDERED: BUPIVACAINE/PF 0.5% ONE (06:15)
[2020-01-11] MEDS ORDERED: BACITRACIN 50,000 UNIT ONE (06:15)
[2020-01-11] MEDS ORDERED: FENTANYL PF 250 MCG/5ML ONE (06:28)
[2020-01-11] MEDS ORDERED: DEXAMETHASONE 4 MG/ML, 1ML ONE ×2 (06:38)
[2020-01-11] MEDS ORDERED: CEFAZOLIN 1,000 MG ONE ×2 (06:38)
[2020-01-11] MEDS ORDERED: ROCURONIUM 10MG/ML,5ML ONE (06:38)
[2020-01-11] MEDS ORDERED: PROPOFOL 10 MG/ML, 20ML ONE (06:38)
[2020-01-11] MEDS ORDERED: PHENYLEPHRINE 10 MG/ML ONE (06:39)
[2020-01-11] MEDS ORDERED: ONDANSETRON 2MG/ML, 2ML IVPush PRN (07:30)
[2020-01-11] MEDS ORDERED: PROMETHAZINE 25 MG/ML, 1ML IVPush PRN (07:30)
[2020-01-11] MEDS ORDERED: OXYcodone 5 MG/5 ML ORAL.SOL UDC PO PRN (07:30)
[2020-01-11] MEDS ORDERED: HYDROmorphone 1 MG/ML, 1ML INJ IVPush PRN (07:30)
[2020-01-11] MEDS ORDERED: LORazepam 2 MG/ML, 1ML IVPush PRN (07:30)
[2020-01-11] MEDS ORDERED: hydrALAzine 20 MG/ML, 1ML IV PRN (07:30)
[2020-01-11] MEDS ORDERED: FENTANYL PF 100 MCG/2ML IV PRN (07:30)
[2020-01-11] MEDS ORDERED: LABETALOL 5MG/ML, 20ML IV PRN (07:30)
[2020-01-11] MEDS ORDERED: MEPERIDINE/PF 25MG/0.5ML IVPush PRN (07:30)
[2020-01-11] MEDS ORDERED: THROMBIN 20,000 UNIT VIAL TP ONE (07:46)
[2020-01-11] MEDS ORDERED: ONDANSETRON 2MG/ML, 2ML ONE (08:11)
[2020-01-11] MEDS: SENNA/DOCUSATE TABLET PO SCH (09:00)
[2020-01-11] MEDS: TOLTERODINE LA 2MG CAP.ER.24H PO SCH (09:00)
[2020-01-11] MEDS ORDERED: HYDROmorphone PCA 30 MG/30 ML IV PRN (11:00)
[2020-01-11] MEDS ORDERED: PHARMACY INSTRUCTION MC PRN (11:00)
[2020-01-11] MEDS ORDERED: LORazepam 2 MG/ML, 1ML IV PRN (11:00)
[2020-01-11] MEDS ORDERED: ACETAMINOPHEN 325 MG TABLET PO PRN ×2 (11:00)
[2020-01-11] MEDS ORDERED: ACETAMINOPHEN 650 MG SUPP PR PRN ×2 (11:00)
[2020-01-11] MEDS ORDERED: OXYcodone/APAP 5/325MG TABLET PO PRN (11:00)
[2020-01-11] MEDS ORDERED: CEFAZOLIN PMX 1GM/50ML 50 ML IVPB SCH (11:00)
[2020-01-11] MEDS ORDERED: BISACODYL 10 MG SUPP PR PRN (11:00)
[2020-01-11] MEDS ORDERED: LABETALOL 250 MG in DEXTROSE 5% 200 ML IV PRN (11:00)
[2020-01-11] MEDS ORDERED: MAGNESIUM HYDROXIDE 8%, 30ML UDC PO PRN (11:00)
[2020-01-11 11:35] VITALS: BP 136/64
[2020-01-11] MEDS: NS + 20MEQ KCL 1,000 ML IV SCH (11:36)
[2020-01-11 11:50] VITALS: BP 146/68
[2020-01-11 11:50] LABS: BASOPHILS % (AUTO) 0 % (0-1); EOSINOPHILS % (AUTO) 2 % (1-7); LYMPHOCYTES % (AUTO) 9 % (22-44); MEAN CORPUSCULAR HEMOGLOBIN 27.7 pg (27.0-34.8); MEAN PLATELET VOLUME 8.2 fL (7.4-10.4); MONOCYTES % (AUTO) 6 % (2-9); NEUTROPHILS % (AUTO) 84 % (42-75); PLATELET COUNT 187 x10^3/uL (130-400); RED BLOOD COUNT 3.32 x10^6/uL (3.82-5.3); RED CELL DISTRIBUTION WIDTH 20.8 % (9.6-15.2)
[2020-01-11] MEDS: ONDANSETRON 2MG/ML, 2ML IV PRN (11:51)
[2020-01-11 11:52] LABS: MD NO
[2020-01-11] MEDS: HYDROmorphone 2 MG/ML, 1ML IV PRN ×5 (11:52→21:39)
[2020-01-11 11:59] LABS: ANION GAP 6 mmol/L (5-15); CALCIUM 8.3 mg/dL (8.5-10.1); CHLORIDE 111 mmol/L (98-107); CREATININE 0.98 mg/dL (0.55-1.02)
[2020-01-11 12:17] VITALS: BP 142/74
[2020-01-11] MEDS: hydrALAzine 20 MG/ML, 1ML IV PRN ×2 (12:29→20:14)
[2020-01-11 12:30] VITALS: BP 135/63
[2020-01-11 13:30] VITALS: BP 123/59
[2020-01-11] MEDS ORDERED: CEFAZOLIN PMX 1GM/50ML 50 ML IVPB ONE (15:30)
[2020-01-11] MEDS: DULOXETINE 30 MG CAPSULE.DR PO SCH (20:29)
[2020-01-11] MEDS: CEFAZOLIN 2 GM/100 ML IVPB SCH (20:29)
[2020-01-11] MEDS: OXYcodone IR 5MG TABLET PO PRN (23:35)
[2020-01-12] MEDS: NS + 20MEQ KCL 1,000 ML IV SCH (01:09)
[2020-01-12] MEDS: HYDROmorphone 2 MG/ML, 1ML IV PRN ×6 (01:32→22:33)
[2020-01-12 03:35] VITALS: BP 125/61
[2020-01-12] MEDS: OXYcodone IR 5MG TABLET PO PRN ×4 (03:43→19:42)
[2020-01-12] MEDS: CEFAZOLIN 2 GM/100 ML IVPB SCH (05:05)
[2020-01-12 05:49] LABS: BASOPHILS % (AUTO) 1 % (0-1); EOSINOPHILS % (AUTO) 5 % (1-7); LYMPHOCYTES % (AUTO) 9 % (22-44); MEAN CORPUSCULAR HEMOGLOBIN 27.9 pg (27.0-34.8); MEAN CORPUSCULAR HGB CONC 32.6 g/dL (32.4-35.8); MEAN PLATELET VOLUME 8.2 fL (7.4-10.4); MONOCYTES % (AUTO) 17 % (2-9); NEUTROPHILS % (AUTO) 68 % (42-75); PLATELET COUNT 222 x10^3/uL (130-400); RED CELL DISTRIBUTION WIDTH 21.2 % (9.6-15.2)
[2020-01-12 05:52] LABS: MD NO
[2020-01-12 06:05] LABS: CHLORIDE 107 mmol/L (98-107)
[2020-01-12 06:27] LABS: ALANINE AMINOTRANSFERASE 66 U/L (12-78); ALBUMIN 2.3 g/dL (3.4-5.0); ALKALINE PHOSPHATASE 268 U/L (45-117); ANION GAP 7 mmol/L (5-15); BILIRUBIN,TOTAL 0.3 mg/dL (0.2-1.0); CREATININE 0.98 mg/dL (0.55-1.02); TOTAL PROTEIN 7.2 g/dL (6.4-8.2)
[2020-01-12] MEDS ORDERED: SENNA/DOCUSATE TABLET PO SCH (09:00)
[2020-01-12] MEDS: SENNA/DOCUSATE TABLET PO SCH (09:32)
[2020-01-12] MEDS: TOLTERODINE LA 2MG CAP.ER.24H PO SCH (09:32)
[2020-01-12] MEDS: DEXAMETHASONE 4 MG/ML, 1ML IV SCH ×3 (09:54→22:10)
[2020-01-12] MEDS ORDERED: LIDOCAINE-MPF 1%, 2ML ONE (11:01)
[2020-01-12] MEDS ORDERED: BACITRACIN OINT 500U/GM, 28GM TP PRN (11:30)
[2020-01-12] MEDS: LEVETIRACETAM 500 MG TABLET PO SCH ×2 (11:36→20:43)
[2020-01-12] MEDS ORDERED: BACITRACIN OINT 500U/GM, 15 GM TP PRN (12:00)
[2020-01-12 12:01] LABS: PLATELET (PFA) 213 x10^3/uL (130-400)
[2020-01-12] MEDS: DULOXETINE 30 MG CAPSULE.DR PO SCH (20:43)
[2020-01-13] MEDS: OXYcodone IR 5MG TABLET PO PRN ×4 (00:10→21:37)
[2020-01-13 04:04] VITALS: BP 108/64
[2020-01-13] MEDS: DEXAMETHASONE 4 MG/ML, 1ML IV SCH (04:21)
[2020-01-13 04:46] LABS: ANION GAP 5 mmol/L (5-15); CALCIUM 8.1 mg/dL (8.5-10.1); CHLORIDE 105 mmol/L (98-107); CREATININE 0.83 mg/dL (0.55-1.02)
[2020-01-13 04:58] LABS: BASOPHILS % (AUTO) 1 % (0-1); EOSINOPHILS % (AUTO) 0 % (1-7); LYMPHOCYTES % (AUTO) 8 % (22-44); MEAN CORPUSCULAR HGB CONC 32.8 g/dL (32.4-35.8); MEAN PLATELET VOLUME 8.3 fL (7.4-10.4); MONOCYTES % (AUTO) 10 % (2-9); NEUTROPHILS % (AUTO) 81 % (42-75); PLATELET COUNT 178 x10^3/uL (130-400); RED BLOOD COUNT 2.92 x10^6/uL (3.82-5.3); RED CELL DISTRIBUTION WIDTH 21.1 % (9.6-15.2)
[2020-01-13 05:11] LABS: MD NO
[2020-01-13] MEDS ORDERED: LIDOCAINE-MPF 1%, 2ML ONE (08:27)
[2020-01-13] MEDS: LEVETIRACETAM 500 MG TABLET PO SCH ×2 (10:30→20:57)
[2020-01-13] MEDS: SENNA/DOCUSATE TABLET PO SCH (10:30)
[2020-01-13] MEDS: TOLTERODINE LA 2MG CAP.ER.24H PO SCH (10:30)
[2020-01-13 14:29] VITALS: BP 111/65
[2020-01-13 20:03] VITALS: BP 116/75
[2020-01-13] MEDS: DULOXETINE 30 MG CAPSULE.DR PO SCH (20:58)
[2020-01-13] MEDS: HYDROmorphone 2 MG/ML, 1ML IV PRN (22:37)
[2020-01-13] MEDS: ONDANSETRON 2MG/ML, 2ML IV PRN (22:37)
[2020-01-14 01:20] VITALS: BP 97/57
[2020-01-14] MEDS: OXYcodone IR 5MG TABLET PO PRN ×3 (03:20→17:45)
[2020-01-14 05:48] LABS: BASOPHILS % (AUTO) 1 % (0-1); EOSINOPHILS % (AUTO) 1 % (1-7); LYMPHOCYTES % (AUTO) 18 % (22-44); MEAN CORPUSCULAR HEMOGLOBIN 27.4 pg (27.0-34.8); MONOCYTES % (AUTO) 20 % (2-9); NEUTROPHILS % (AUTO) 61 % (42-75); PLATELET COUNT 189 x10^3/uL (130-400); RED CELL DISTRIBUTION WIDTH 21.3 % (9.6-15.2)
[2020-01-14 06:05] LABS: ANION GAP 7 mmol/L (5-15); CALCIUM 8.2 mg/dL (8.5-10.1); CHLORIDE 105 mmol/L (98-107)
[2020-01-14 06:13] LABS: MD NO
[2020-01-14 06:52] VITALS: BP 109/66
[2020-01-14] MEDS: LEVETIRACETAM 500 MG TABLET PO SCH ×2 (08:32→19:56)
[2020-01-14] MEDS: TOLTERODINE LA 2MG CAP.ER.24H PO SCH (08:32)
[2020-01-14] MEDS: SENNA/DOCUSATE TABLET PO SCH (08:32)
[2020-01-14] MEDS ORDERED: LEVE500T53 PO (10:32)
[2020-01-14] MEDS ORDERED: OXYC10TA6 PO (10:32)
[2020-01-14] MEDS ORDERED: METHYLNALTREXONE 12 MG/0.6 ML SYR SQ ONE (13:30)
[2020-01-14] MEDS: HYDROmorphone 2 MG/ML, 1ML IV PRN ×2 (15:58→20:11)
[2020-01-14] MEDS: BISACODYL 10 MG SUPP PR SCH (15:59)
[2020-01-14] MEDS: ACETAMINOPHEN 325 MG TABLET PO PRN (17:46)
[2020-01-14] MEDS: DULOXETINE 30 MG CAPSULE.DR PO SCH (19:56)
[2020-01-14] MEDS: ONDANSETRON 2MG/ML, 2ML IV PRN (20:10)
[2020-01-14 20:49] VITALS: BP 123/84
[2020-01-15] MEDS: OXYcodone IR 5MG TABLET PO PRN ×5 (00:03→18:51)
[2020-01-15] MEDS: ACETAMINOPHEN 325 MG TABLET PO PRN ×4 (00:03→18:51)
[2020-01-15 00:35] VITALS: BP 122/79
[2020-01-15 05:29] LABS: ANION GAP 4 mmol/L (5-15); BASOPHILS % (AUTO) 2 % (0-1); CALCIUM 8.6 mg/dL (8.5-10.1); CHLORIDE 104 mmol/L (98-107); EOSINOPHILS % (AUTO) 4 % (1-7); LYMPHOCYTES % (AUTO) 16 % (22-44); MEAN CORPUSCULAR HGB CONC 32.7 g/dL (32.4-35.8); MEAN PLATELET VOLUME 7.8 fL (7.4-10.4); MONOCYTES % (AUTO) 16 % (2-9); NEUTROPHILS % (AUTO) 64 % (42-75); PLATELET COUNT 236 x10^3/uL (130-400); RED BLOOD COUNT 3.18 x10^6/uL (3.82-5.3); RED CELL DISTRIBUTION WIDTH 21.3 % (9.6-15.2)
[2020-01-15 05:31] LABS: CREATININE 0.96 mg/dL (0.55-1.02)
[2020-01-15 05:46] LABS: MD NO
[2020-01-15] MEDS: ONDANSETRON 2MG/ML, 2ML IV PRN ×2 (05:55→20:09)
[2020-01-15] MEDS: HYDROmorphone 2 MG/ML, 1ML IV PRN ×3 (05:56→20:09)
[2020-01-15] MEDS: BISACODYL 10 MG SUPP PR SCH (09:00)
[2020-01-15] MEDS: TOLTERODINE LA 2MG CAP.ER.24H PO SCH (09:19)
[2020-01-15] MEDS: LEVETIRACETAM 500 MG TABLET PO SCH ×2 (09:19→20:10)
[2020-01-15] MEDS: SENNA/DOCUSATE TABLET PO SCH (09:19)
[2020-01-15] MEDS: DULOXETINE 30 MG CAPSULE.DR PO SCH (20:09)
[2020-01-15 20:20] VITALS: BP 140/84
[2020-01-16] MEDS: OXYcodone IR 5MG TABLET PO PRN ×5 (00:49→17:26)
[2020-01-16 00:55] VITALS: BP 135/85
[2020-01-16] MEDS: HYDROmorphone 2 MG/ML, 1ML IV PRN ×2 (01:29→05:45)
[2020-01-16] MEDS: ACETAMINOPHEN 325 MG TABLET PO PRN (05:02)
[2020-01-16 05:19] LABS: BASOPHILS % (AUTO) 1 % (0-1); EOSINOPHILS % (AUTO) 3 % (1-7); LYMPHOCYTES % (AUTO) 11 % (22-44); MEAN CORPUSCULAR HEMOGLOBIN 27.8 pg (27.0-34.8); MEAN CORPUSCULAR HGB CONC 32.4 g/dL (32.4-35.8); MEAN PLATELET VOLUME 7.6 fL (7.4-10.4); MONOCYTES % (AUTO) 18 % (2-9); NEUTROPHILS % (AUTO) 67 % (42-75); PLATELET COUNT 200 x10^3/uL (130-400); RED BLOOD COUNT 3.04 x10^6/uL (3.82-5.3)
[2020-01-16 05:25] LABS: ANION GAP 5 mmol/L (5-15); CALCIUM 8.5 mg/dL (8.5-10.1); CHLORIDE 103 mmol/L (98-107); CREATININE 0.88 mg/dL (0.55-1.02)
[2020-01-16 05:29] LABS: MD NO
[2020-01-16 07:33] VITALS: BP 117/79
[2020-01-16] MEDS: SENNA/DOCUSATE TABLET PO SCH (09:18)
[2020-01-16] MEDS: LEVETIRACETAM 500 MG TABLET PO SCH ×2 (09:18→20:37)
[2020-01-16] MEDS: BISACODYL 10 MG SUPP PR SCH (09:19)
[2020-01-16] MEDS: TOLTERODINE LA 2MG CAP.ER.24H PO SCH (09:19)
[2020-01-16] MEDS: HYDROmorphone 2MG TABLET PO PRN ×3 (10:23→18:43)
[2020-01-16 13:23] VITALS: BP 125/89
[2020-01-16] MEDS: ACETAMINOPHEN 325 MG TABLET PO SCH ×2 (13:30→20:37)
[2020-01-16] MEDS: DULOXETINE 30 MG CAPSULE.DR PO SCH (20:37)
[2020-01-16 20:51] VITALS: BP 119/76
[2020-01-17] MEDS: OXYcodone IR 5MG TABLET PO PRN ×3 (01:15→12:13)
[2020-01-17] MEDS: ACETAMINOPHEN 325 MG TABLET PO SCH ×2 (01:30→05:44)
[2020-01-17 01:42] VITALS: BP 143/81
[2020-01-17 06:46] LABS: BASOPHILS % (AUTO) 2 % (0-1); EOSINOPHILS % (AUTO) 4 % (1-7); LYMPHOCYTES % (AUTO) 11 % (22-44); MEAN CORPUSCULAR HGB CONC 32.5 g/dL (32.4-35.8); MEAN PLATELET VOLUME 7.7 fL (7.4-10.4); MONOCYTES % (AUTO) 17 % (2-9); NEUTROPHILS % (AUTO) 66 % (42-75); PLATELET COUNT 232 x10^3/uL (130-400); RED BLOOD COUNT 3.24 x10^6/uL (3.82-5.3); RED CELL DISTRIBUTION WIDTH 21.3 % (9.6-15.2)
[2020-01-17 06:47] LABS: MD NO
[2020-01-17 06:54] LABS: ANION GAP 6 mmol/L (5-15); CALCIUM 8.9 mg/dL (8.5-10.1); CHLORIDE 106 mmol/L (98-107); CREATININE 0.88 mg/dL (0.55-1.02)
[2020-01-17 08:19] VITALS: BP 115/79
[2020-01-17] MEDS: LEVETIRACETAM 500 MG TABLET PO SCH (08:20)
[2020-01-17] MEDS: SENNA/DOCUSATE TABLET PO SCH (08:20)
[2020-01-17] MEDS: BISACODYL 10 MG SUPP PR SCH ×2 (08:20→08:22)
[2020-01-17] MEDS: TOLTERODINE LA 2MG CAP.ER.24H PO SCH (08:21)
[2020-01-17] MEDS ORDERED: OXYC5CAP2 PO (12:11)
[2020-01-17 12:47] VITALS: BP 126/84
== END 2020-01-17 13:32 | disposition home health service (06) | DRG 25 ==
LOC: ED 14:59 → CCU 16:47 → ED 20:10 → CCU 20:11 → 4NE 01-13 13:54
PROVIDERS: ADMIT Internal Medicine; ATTEND Internal Medicine
PROC: 30233R1 Transfusion of Nonautologous Platelets into Peripheral Vein, Percutaneous Approach (ICD-10-PCS; 2020-01-11)
PROC: 009400Z Drainage of Intracranial Subdural Space with Drainage Device, Open Approach (ICD-10-PCS; principal; 2020-01-11 06:30)
DX: I62.03 Nontraumatic chronic subdural hemorrhage (principal); E43 Unspecified severe protein-calorie malnutrition; G93.41 Metabolic encephalopathy; D84.9 Immunodeficiency, unspecified; Z68.41 Body mass index [BMI] 40.0-44.9, adult; Z94.84 Stem cells transplant status; E66.01 Morbid (severe) obesity due to excess calories; E87.6 Hypokalemia; I10 Essential (primary) hypertension; K59.00 Constipation, unspecified; N32.81 Overactive bladder; R47.01 Aphasia; G43.909 Migraine, unspecified, not intractable, without status migrainosus; R47.1 Dysarthria and anarthria; Z20.828 Contact with and (suspected) exposure to other viral communicable diseases; R74.01 Elevation of levels of liver transaminase levels; Z79.891 Long term (current) use of opiate analgesic; Z80.3 Family history of malignant neoplasm of breast; Z82.49 Family history of ischemic heart disease and other diseases of the circulatory system; Z87.11 Personal history of peptic ulcer disease; Z90.49 Acquired absence of other specified parts of digestive tract; Z90.710 Acquired absence of both cervix and uterus; Z98.84 Bariatric surgery status; Z88.5 Allergy status to narcotic agent
CPT/HCPCS: 36415; 96361; 96374; 96375; 99291; Q0169; S0020; 70450; 76700; 80048; 80053; 82728; 83540; 83550; 83735; 85014; 85025; 85049; 85347; 85384; 85576; 85610; 85730; 86850; 86900; 87081; 87635; 95816; C1713; G0378; J0171; J0690; J1100; J1170; J2405; J2704; J3010; J3480; 92523-GN; C1781; J0360; J1200; J2060; J2370; J2765; J7030; J7040; P9037

== ENCOUNTER → 2020-01-21 | Outpatient (CLI) | payer OTHER ==
[~2020-01-21] MED LIST changes: +LEVE500T53 PO; +OXYC10TA6 PO; +OXYC5CAP2 PO
== END | disposition home or self-care (01) ==
LOC: CFH 10:46
PROVIDERS: ATTEND Neurological Surgery
DX: S06.5X9A Traumatic subdural hemorrhage with loss of consciousness of unspecified duration, initial encounter (principal); X58.XXXA Exposure to other specified factors, initial encounter; Y93.89 Activity, other specified; Y92.89 Other specified places as the place of occurrence of the external cause; Y99.8 Other external cause status
CPT/HCPCS: 70450

== ENCOUNTER 2020-02-10 06:43 | Day surgery (SDC) | payer OTHER ==
[~2020-02-10] VITALS: Ht 157.5 cm; Wt 96.5 kg
[~2020-02-10 06:43] MED LIST changes: -CALC-545 PO; +CALC-780 PO
[2020-02-10] MEDS ORDERED: HEPARIN 1,000 UNITS/ML, 10ML ONE (06:50)
[2020-02-10] MEDS ORDERED: LIDOCAINE/PF 0.5% ,50ML ONE (06:50)
[2020-02-10] MEDS ORDERED: LACTATED RINGERS 1,000 ML IV SCH (07:00)
[2020-02-10] MEDS ORDERED: CHLORHEXIDINE 15 ML UDC MM ONE (07:00)
[2020-02-10 07:17] VITALS: BP 127/84
[2020-02-10] MEDS ORDERED: PLEASE ENTER HEIGHT AND WEIGHT MC SCH (07:30)
[2020-02-10] MEDS ORDERED: MIDAZOLAM 1 MG/ML, 2ML ONE (08:24)
[2020-02-10] MEDS ORDERED: FENTANYL PF 100 MCG/2ML ONE ×3 (08:27→10:42)
[2020-02-10] MEDS ORDERED: DEXAMETHASONE 4 MG/ML, 1ML ONE (08:41)
[2020-02-10] MEDS ORDERED: ONDANSETRON 2MG/ML, 2ML ONE (08:41)
[2020-02-10] MEDS ORDERED: PROPOFOL 10 MG/ML, 20ML ONE (08:41)
[2020-02-10] MEDS ORDERED: SUGAMMADEX 200 MG/2 ML IVPush ONE (08:41)
[2020-02-10] MEDS ORDERED: CEFAZOLIN 1,000 MG ONE (08:41)
[2020-02-10] MEDS ORDERED: DIAZEPAM 5 MG/ML, 2ML IVPush PRN (10:00)
[2020-02-10] MEDS ORDERED: ALBUTEROL SULFATE 2.5 MG/3 ML NPPB PRN (10:00)
[2020-02-10] MEDS ORDERED: DIPHENHYDRAMINE 50 MG/ML, 1ML IVPush PRN (10:00)
[2020-02-10] MEDS ORDERED: hydrALAzine 20 MG/ML, 1ML IV PRN (10:00)
[2020-02-10] MEDS ORDERED: ACETAMINOPHEN 325 MG TABLET PO PRN (10:00)
[2020-02-10] MEDS ORDERED: MEPERIDINE/PF 25MG/0.5ML IVPush PRN (10:00)
[2020-02-10] MEDS ORDERED: EPHEDRINE 50 MG/ML, 1ML IVPush PRN (10:00)
[2020-02-10] MEDS ORDERED: ONDANSETRON 2MG/ML, 2ML IVPush PRN (10:00)
[2020-02-10] MEDS ORDERED: OXYcodone 5 MG/5 ML ORAL.SOL UDC PO PRN (10:00)
[2020-02-10] MEDS ORDERED: LABETALOL 5MG/ML, 20ML IV PRN (10:00)
[2020-02-10] MEDS ORDERED: MIDAZOLAM 1 MG/ML, 2ML IV PRN (10:00)
[2020-02-10] MEDS ORDERED: PROMETHAZINE 25 MG/ML, 1ML IVPush PRN (10:00)
[2020-02-10] MEDS ORDERED: PROMETHAZINE 12.5 MG SUPP PR PRN (10:00)
[2020-02-10] MEDS ORDERED: OXYcodone 5 MG/5 ML ORAL.SOL UDC ONE (10:26)
[2020-02-10] MEDS ORDERED: ACETAMINOPHEN 650 MG/20.3 ML UDC ONE (10:26)
[2020-02-10] MEDS: FENTANYL PF 100 MCG/2ML IV PRN ×4 (10:37→10:52)
[2020-02-10] MEDS ORDERED: HYDROmorphone 1 MG/ML, 1ML INJ ONE ×3 (10:53→11:20)
[2020-02-10] MEDS: HYDROmorphone 1 MG/ML, 1ML INJ IVPush PRN ×5 (10:58→11:27)
== END 2020-02-10 13:45 | disposition home or self-care (01) ==
LOC: OUT 06:43
PROVIDERS: ATTEND Surgery
DX: Z45.2 Encounter for adjustment and management of vascular access device (principal); C90.00 Multiple myeloma not having achieved remission; K21.9 Gastro-esophageal reflux disease without esophagitis; E66.01 Morbid (severe) obesity due to excess calories; Z88.8 Allergy status to other drugs, medicaments and biological substances; Z88.5 Allergy status to narcotic agent; Z79.899 Other long term (current) drug therapy; Z72.89 Other problems related to lifestyle; Z98.890 Other specified postprocedural states; Z90.49 Acquired absence of other specified parts of digestive tract; Z98.84 Bariatric surgery status; Z82.49 Family history of ischemic heart disease and other diseases of the circulatory system; Z80.3 Family history of malignant neoplasm of breast; Z68.39 Body mass index [BMI] 39.0-39.9, adult
CPT/HCPCS: 36561; 71045; 77001; C1788; J0690; J1100; J1170; J1644; J2001; J2250; J2405; J2704; J3010

== ENCOUNTER 2020-02-28 08:42 | Day surgery (SDC) | payer OTHER ==
[~2020-02-28] VITALS: Ht 157.5 cm; Wt 96.0 kg
[2020-02-28] MEDS ORDERED: CEFAZOLIN PMX 1GM/50ML 50 ML IV ONE (09:00)
[2020-02-28] MEDS ORDERED: CHLORHEXIDINE 15 ML UDC ONE (09:08)
[2020-02-28 09:16] VITALS: BP 139/80
[2020-02-28] MEDS ORDERED: LACTATED RINGERS 1,000 ML IV SCH (09:30)
[2020-02-28] MEDS ORDERED: CHLORHEXIDINE 15 ML UDC MM ONE (09:30)
[2020-02-28] MEDS ORDERED: LIDOCAINE 1%, 20ML ONE (10:21)
[2020-02-28] MEDS ORDERED: LIDOCAINE 1%, 10ML ONE (10:21)
[2020-02-28] MEDS ORDERED: PROPOFOL 10 MG/ML, 20ML ONE (10:35)
[2020-02-28] MEDS ORDERED: CEFAZOLIN 1,000 MG ONE (10:35)
[2020-02-28] MEDS ORDERED: DEXAMETHASONE 4 MG/ML, 1ML ONE (10:35)
[2020-02-28] MEDS ORDERED: SUGAMMADEX 200 MG/2 ML IVPush ONE (10:35)
[2020-02-28] MEDS ORDERED: SUCCINYLCHOLINE 20 MG/ML, 10ML ONE (10:35)
[2020-02-28] MEDS ORDERED: ONDANSETRON 2MG/ML, 2ML ONE (10:35)
[2020-02-28] MEDS ORDERED: ROCURONIUM 10MG/ML,5ML ONE (10:35)
[2020-02-28] MEDS ORDERED: FENTANYL PF 250 MCG/5ML ONE (10:41)
[2020-02-28] MEDS ORDERED: MIDAZOLAM 1 MG/ML, 2ML ONE (10:41)
[2020-02-28] MEDS ORDERED: ALBUTEROL SULFATE 2.5 MG/3 ML NPPB PRN (12:30)
[2020-02-28] MEDS ORDERED: HYDROmorphone 1 MG/ML, 1ML INJ IVPush PRN (12:30)
[2020-02-28] MEDS ORDERED: DIAZEPAM 5 MG/ML, 2ML IVPush PRN (12:30)
[2020-02-28] MEDS ORDERED: hydrALAzine 20 MG/ML, 1ML IV PRN (12:30)
[2020-02-28] MEDS ORDERED: DIPHENHYDRAMINE 50 MG/ML, 1ML IVPush PRN (12:30)
[2020-02-28] MEDS ORDERED: PROMETHAZINE 25 MG/ML, 1ML IVPush PRN (12:30)
[2020-02-28] MEDS ORDERED: OXYcodone 5 MG/5 ML ORAL.SOL UDC PO PRN (12:30)
[2020-02-28] MEDS ORDERED: LABETALOL 5MG/ML, 20ML IV PRN (12:30)
[2020-02-28] MEDS ORDERED: MIDAZOLAM 1 MG/ML, 2ML IV PRN (12:30)
[2020-02-28] MEDS ORDERED: EPHEDRINE 50 MG/ML, 1ML IVPush PRN (12:30)
[2020-02-28] MEDS ORDERED: ACETAMINOPHEN 325 MG TABLET PO PRN (12:30)
[2020-02-28] MEDS ORDERED: FENTANYL PF 100 MCG/2ML IV PRN (12:30)
[2020-02-28] MEDS ORDERED: MEPERIDINE/PF 25MG/0.5ML IVPush PRN (12:30)
[2020-02-28] MEDS ORDERED: PROMETHAZINE 12.5 MG SUPP PR PRN (12:30)
[2020-02-28] MEDS ORDERED: ONDANSETRON 2MG/ML, 2ML IVPush PRN (12:30)
[2020-03-07] MEDS ORDERED: LEVE500T54 PO (07:49)
== END 2020-02-28 14:15 | disposition home or self-care (01) ==
LOC: RAD 08:42 → OUT 14:15
PROVIDERS: ATTEND Specialist
DX: T82.594A Other mechanical complication of infusion catheter, initial encounter (principal); C90.00 Multiple myeloma not having achieved remission; E66.9 Obesity, unspecified; Z20.828 Contact with and (suspected) exposure to other viral communicable diseases; Z68.37 Body mass index [BMI] 37.0-37.9, adult; Z79.891 Long term (current) use of opiate analgesic; Z79.899 Other long term (current) drug therapy; Z88.5 Allergy status to narcotic agent; Z88.6 Allergy status to analgesic agent; Z88.8 Allergy status to other drugs, medicaments and biological substances; Z90.49 Acquired absence of other specified parts of digestive tract; Z98.84 Bariatric surgery status; Z80.3 Family history of malignant neoplasm of breast; Y83.8 Other surgical procedures as the cause of abnormal reaction of the patient, or of later complication, without mention of misadventure at the time of the procedure
CPT/HCPCS: 36561; 36590; 76937; 77001; 87635; C1788; C1894; J0330; J0690; J1100; J1642; J2250; J2405; J2704; J3010; J7120

== ENCOUNTER → 2020-03-07 | Outpatient (CLI) | payer OTHER ==
[~2020-03-07] MED LIST changes: +LEVE500T54 PO
== END | disposition home or self-care (01) ==
LOC: RAD 14:29
PROVIDERS: ATTEND Specialist
DX: C90.00 Multiple myeloma not having achieved remission (principal); D80.1 Nonfamilial hypogammaglobulinemia; D50.9 Iron deficiency anemia, unspecified; M25.712 Osteophyte, left shoulder

== ENCOUNTER → 2020-03-24 | Outpatient (CLI) | payer OTHER | END | disposition home or self-care (01) | LOC: CVU 06:36 | PROVIDERS: ATTEND Physician Assistant | DX: C90.00 Multiple myeloma not having achieved remission (principal); I35.8 Other nonrheumatic aortic valve disorders; J32.9 Chronic sinusitis, unspecified; R51.9 Headache, unspecified; D80.1 Nonfamilial hypogammaglobulinemia; D50.9 Iron deficiency anemia, unspecified | CPT/HCPCS: 70450; 93306; 93356 ==

== ENCOUNTER 2020-04-07 07:43 | Day surgery (SDC) | payer OTHER ==
[~2020-04-07] VITALS: Ht 157.5 cm; Wt 91.8 kg
[~2020-04-07 07:43] MED LIST changes: +ASPI-1026 PO; -ASPI-650 PO; -OXYC-302 PO; +OXYC1TAB14 PO; -OXYC5TAB3 PO; +OXYC5TAB98 PO
[2020-04-07] MEDS ORDERED: ONDANSETRON 2MG/ML, 2ML IVPush ONE (08:00)
[2020-04-07] MEDS ORDERED: OXYcodone 5 MG/5 ML ORAL.SOL UDC PO PRN (08:00)
[2020-04-07] MEDS ORDERED: HYDROmorphone 1 MG/ML, 1ML INJ IVPush PRN (08:00)
[2020-04-07] MEDS ORDERED: LABETALOL 5MG/ML, 20ML IV PRN (08:00)
[2020-04-07] MEDS ORDERED: PROMETHAZINE 25 MG/ML, 1ML IVPush PRN (08:00)
[2020-04-07] MEDS ORDERED: ACETAMINOPHEN 325 MG TABLET PO PRN (08:00)
[2020-04-07] MEDS ORDERED: hydrALAzine 20 MG/ML, 1ML IV PRN (08:00)
[2020-04-07] MEDS ORDERED: FENTANYL PF 100 MCG/2ML IV PRN (08:00)
[2020-04-07 08:22] VITALS: BP 125/76
[2020-04-07] MEDS ORDERED: PLEASE ENTER HEIGHT AND WEIGHT MC SCH (08:30)
[2020-04-07] MEDS ORDERED: SODIUM CHLORIDE 0.9% 1,000 ML IV SCH (08:30)
[2020-04-07] MEDS ORDERED: CHLORHEXIDINE 15 ML UDC MM ONE (08:30)
[2020-04-07] MEDS ORDERED: LACTATED RINGERS 1,000 ML IV SCH (09:00)
[2020-04-07] MEDS ORDERED: MIDAZOLAM 1 MG/ML, 5ML ONE (09:18)
[2020-04-07] MEDS ORDERED: FENTANYL PF 100 MCG/2ML ONE (09:18)
[2020-04-07] MEDS ORDERED: ONDANSETRON 2MG/ML, 2ML ONE (09:21)
[2020-04-07] MEDS ORDERED: PROPOFOL 10 MG/ML, 20ML ONE (09:21)
[2020-04-07] MEDS ORDERED: DEXAMETHASONE 4 MG/ML, 1ML ONE (09:21)
== END 2020-04-07 12:10 | disposition home or self-care (01) ==
LOC: OUT 07:43 → EDSTATUS 10:30 → OUT 12:10
PROVIDERS: ATTEND Physician Assistant
DX: M54.2 Cervicalgia (principal); M48.02 Spinal stenosis, cervical region; M47.893 Other spondylosis, cervicothoracic region; M25.78 Osteophyte, vertebrae; Z20.822 Contact with and (suspected) exposure to COVID-19; Z79.1 Long term (current) use of non-steroidal anti-inflammatories (NSAID); Z79.899 Other long term (current) drug therapy; Z72.89 Other problems related to lifestyle; Z88.5 Allergy status to narcotic agent
CPT/HCPCS: 72050; 72141; 87635; 93005; J1100; J2250; J2405; J2704; J3010; J7120

== ENCOUNTER 2020-06-30 17:24 | Emergency (ER) | payer OTHER ==
[~2020-06-30] VITALS: Ht 157.5 cm; Wt 97.8 kg
[~2020-06-30 17:24] MED LIST changes: -ACYC-114 PO; +ACYC-40 PO; +POMA4CAP PO; +SULF-23 PO; -SULF1TAB24 PO
--- NOTE | 2020-06-30 17:33 | NUR ---
PATIENT WALKED BACK FROM LOBBY WITH CHIEF C/O SOB AND COUGH X1 DAY. PATIENT DENIES FEVER, DENIES N/V/D. PATIENT DENIES ANY SICK CONTACTS. JULIAN WOODS, ACCOMPANIED BY FRIEND.
--- NOTE | 2020-06-30 18:04 | NUR ---
X-RAY AT BEDSIDE.
[2020-06-30 18:19] LABS: ALANINE AMINOTRANSFERASE 52 U/L (12-78); ALBUMIN 2.9 g/dL (3.4-5.0); BASOPHILS % (AUTO) 1 % (0-1); CALCIUM 8.6 mg/dL (8.5-10.1); CHLORIDE 107 mmol/L (98-107); CREATININE 0.94 mg/dL (0.55-1.02); EOSINOPHILS % (AUTO) 17 % (1-7); LYMPHOCYTES % (AUTO) 12 % (22-44); MEAN CORPUSCULAR HEMOGLOBIN 34.2 pg (27.0-34.8); MEAN CORPUSCULAR HGB CONC 33.8 g/dL (32.4-35.8); MEAN PLATELET VOLUME 9.1 fL (7.4-10.4); MONOCYTES % (AUTO) 24 % (2-9); NEUTROPHILS % (AUTO) 45 % (42-75); PLATELET COUNT 131 x10^3/uL (130-400); RED BLOOD COUNT 3.48 x10^6/uL (3.82-5.3); RED CELL DISTRIBUTION WIDTH 16.8 % (9.6-15.2)
[2020-06-30 18:20] LABS: MD NO
[2020-06-30 18:24] LABS: ALKALINE PHOSPHATASE 192 U/L (45-117); ANION GAP 6 mmol/L (5-15); BILIRUBIN,TOTAL 0.5 mg/dL (0.2-1.0); TOTAL PROTEIN 5.9 g/dL (6.4-8.2); TROPONIN I < 0.015 ng/mL (0.000-0.045)
--- NOTE | 2020-06-30 19:16 | NUR ---
RECIEVIED REPORT FROM NELSON RYAN.
[2020-06-30 19:28] VITALS: BP 149/84
--- NOTE | 2020-06-30 19:30 | NUR ---
Patient given discharge instructions and they have confirmed that they understand the instructions. Patient ambulatory with steady gait. No questions at time of discharge.
== END 2020-06-30 19:36 | disposition home or self-care (01) ==
LOC: ED 19:10
DX: R06.00 Dyspnea, unspecified (principal); J06.9 Acute upper respiratory infection, unspecified
CPT/HCPCS: 36415; 71045; 80053; 84484; 85025; 85379; 93005; 99285

== ENCOUNTER 2020-07-03 12:45 | Outpatient (CLI) | payer OTHER ==
[~2020-07-03] VITALS: Ht 157.5 cm; Wt 93.3 kg
[2020-07-03] MEDS ORDERED: CHLORHEXIDINE 15 ML UDC ONE (13:26)
[2020-07-03] MEDS ORDERED: CHLORHEXIDINE 15 ML UDC PO ONE (13:30)
[2020-07-03] MEDS ORDERED: LACTATED RINGERS 1,000 ML IV SCH (13:30)
[2020-07-03 13:35] VITALS: BP 130/81
[2020-07-03] MEDS ORDERED: PROPOFOL 50 ML ONE (13:58)
[2020-07-03] MEDS ORDERED: MIDAZOLAM 1 MG/ML, 2ML ONE (14:01)
[2020-07-03] MEDS ORDERED: ONDANSETRON 2MG/ML, 2ML ONE (14:16)
[2020-07-03] MEDS ORDERED: PROPOFOL 10 MG/ML, 20ML ONE (14:16)
[2020-07-03] MEDS ORDERED: GADOTERATE 10 MMOL/20ML SYR ONE (14:28)
[2020-07-03] MEDS ORDERED: PROMETHAZINE 25 MG/ML, 1ML IVPush PRN (15:30)
[2020-07-03] MEDS ORDERED: HYDROmorphone 1 MG/ML, 1ML INJ IVPush PRN (15:30)
[2020-07-03] MEDS ORDERED: LABETALOL 5MG/ML, 20ML IV PRN (15:30)
[2020-07-03] MEDS ORDERED: FENTANYL PF 100 MCG/2ML IV PRN (15:30)
[2020-07-03] MEDS ORDERED: DIAZEPAM 5 MG/ML, 2ML IVPush PRN (15:30)
[2020-07-03] MEDS ORDERED: EPHEDRINE 50 MG/ML, 1ML IVPush PRN (15:30)
[2020-07-03] MEDS ORDERED: OXYcodone 5 MG/5 ML ORAL.SOL UDC PO PRN (15:30)
[2020-07-03] MEDS ORDERED: ONDANSETRON 2MG/ML, 2ML IVPush PRN (15:30)
[2020-07-03] MEDS ORDERED: EPHEDRINE 50 MG/ML, 1ML IM PRN (15:30)
[2020-07-03] MEDS ORDERED: ACETAMINOPHEN 325 MG TABLET PO PRN (15:30)
[2020-07-03] MEDS ORDERED: DIPHENHYDRAMINE 50 MG/ML, 1ML IVPush PRN (15:30)
== END 2020-07-03 17:05 | disposition home or self-care (01) ==
LOC: RAD 12:45
PROVIDERS: ATTEND Specialist
DX: M54.9 Dorsalgia, unspecified (principal); M48.061 Spinal stenosis, lumbar region without neurogenic claudication; C90.00 Multiple myeloma not having achieved remission; K21.9 Gastro-esophageal reflux disease without esophagitis; E55.9 Vitamin D deficiency, unspecified; Z20.822 Contact with and (suspected) exposure to COVID-19; Z79.899 Other long term (current) drug therapy; Z88.5 Allergy status to narcotic agent; Z88.8 Allergy status to other drugs, medicaments and biological substances; Z98.84 Bariatric surgery status; Z80.3 Family history of malignant neoplasm of breast; Z81.8 Family history of other mental and behavioral disorders
CPT/HCPCS: 72158; 87635; A9575; J2250; J2405; J2704; J7120

== ENCOUNTER → 2020-08-09 | Outpatient (CLI) | payer OTHER | END | disposition home or self-care (01) | LOC: CVU 09:25 | PROVIDERS: ATTEND Specialist | DX: C90.00 Multiple myeloma not having achieved remission (principal); I08.0 Rheumatic disorders of both mitral and aortic valves; D50.9 Iron deficiency anemia, unspecified; D80.1 Nonfamilial hypogammaglobulinemia | CPT/HCPCS: 93306; 93356 ==

== ENCOUNTER 2020-09-28 10:07 | Inpatient (IN) | payer OTHER ==
[~2020-09-28] VITALS: Ht 157.5 cm; Wt 101.7 kg
--- NOTE | 2020-09-28 10:27 | NUR ---
DR LEVINE BEDSIDE
[2020-09-28] MEDS ORDERED: HYDROmorphone 1 MG/ML, 1ML INJ IV ONE ×3 (11:00→20:40)
[2020-09-28] MEDS ORDERED: ONDANSETRON 2MG/ML, 2ML IVPush ONE (11:00)
[2020-09-28] MEDS ORDERED: GABAPENTIN 300 MG CAPSULE PO ONE (11:00)
[2020-09-28] MEDS ORDERED: HYDROmorphone 1 MG/ML, 1ML INJ ONE ×2 (11:10→13:42)
[2020-09-28] MEDS ORDERED: ONDANSETRON 2MG/ML, 2ML ONE (11:10)
[2020-09-28] MEDS ORDERED: GABAPENTIN 300 MG CAPSULE ONE (11:11)
[2020-09-28] MEDS ORDERED: KETOROLAC 30 MG/1 ML ONE (12:56)
[2020-09-28] MEDS ORDERED: DIAZEPAM 5 MG/ML, 2ML ONE (12:56)
[2020-09-28] MEDS ORDERED: KETOROLAC 30 MG/1 ML IVPush ONE (13:00)
[2020-09-28] MEDS ORDERED: KETOROLAC 30 MG/1 ML IM ONE (13:00)
[2020-09-28] MEDS ORDERED: DIAZEPAM 5 MG/ML, 10ML VIAL IM ONE (13:00)
[2020-09-28] MEDS ORDERED: DIAZEPAM 5 MG/ML, 2ML IV ONE (13:00)
--- NOTE | 2020-09-28 13:56 | NUR ---
ASSUMED CARE OF PATIENT. REPORT GIVEN FROM CONNOR GEE. DR MATHIS IN ROOM.
[2020-09-28] MEDS ORDERED: ACYC-40 PO (13:58)
[2020-09-28] MEDS ORDERED: ASPI-963 PO (14:03)
[2020-09-28] MEDS ORDERED: PANT40TA3 PO (14:03)
[2020-09-28] MEDS ORDERED: PROTONIX (14:03)
--- NOTE | 2020-09-28 14:03 | NUR ---
MED LIST UPDATED WITH PATIENT. VS STABLE. FAMILY AT BEDSIDE. CALL LIGHT IN PLACE. WILL CONTINUE TO MONITOR.
[2020-09-28] MEDS ORDERED: ONDANSETRON 2MG/ML, 2ML IVPush PRN (15:00)
[2020-09-28] MEDS ORDERED: HYDROmorphone 2 MG/ML, 1ML IVPush PRN (15:00)
[2020-09-28] MEDS ORDERED: LACTULOSE 10 GM/15 ML UDC PO PRN (15:00)
[2020-09-28] MEDS ORDERED: OXYcodone IR 5MG TABLET PO PRN (15:00)
[2020-09-28 15:09] VITALS: BP 124/68
[2020-09-28] MEDS: CYCLOBENZAPRINE 10 MG TABLET PO SCH ×2 (16:32→20:07)
[2020-09-28] MEDS: DEXAMETHASONE 4 MG/ML, 1ML IVPush SCH (18:04)
[2020-09-28] MEDS: HYDROmorphone 2 MG/ML, 1ML IVPush PRN ×2 (18:04→22:14)
[2020-09-28 20:05] VITALS: BP 129/67
[2020-09-28] MEDS: ACYCLOVIR 400 MG TABLET PO SCH (20:07)
[2020-09-28] MEDS: ACETAMINOPHEN 325 MG TABLET PO PRN (20:07)
[2020-09-28] MEDS: ENOXAPARIN 40 MG/0.4 ML SQ SCH (20:07)
[2020-09-28] MEDS: PANTOPRAZOLE 40MG TABLET PO SCH (20:07)
[2020-09-28] MEDS: DULOXETINE 30 MG CAPSULE.DR PO SCH (20:08)
[2020-09-29] MEDS: OXYcodone IR 5MG TABLET PO PRN ×5 (00:08→20:09)
[2020-09-29] MEDS: ACETAMINOPHEN 325 MG TABLET PO PRN ×3 (00:09→14:07)
[2020-09-29] MEDS: METHOCARBAMOL 500 MG TABLET PO PRN ×2 (00:09→14:07)
[2020-09-29] MEDS: DEXAMETHASONE 4 MG/ML, 1ML IVPush SCH ×2 (00:09→08:13)
[2020-09-29 00:22] VITALS: BP 154/91
[2020-09-29] MEDS: HYDROmorphone 2 MG/ML, 1ML IVPush PRN ×6 (04:57→22:08)
[2020-09-29 05:13] LABS: MEAN CORPUSCULAR HEMOGLOBIN 31.8 pg (27.0-34.8); MEAN CORPUSCULAR HGB CONC 33.4 g/dL (32.4-35.8); MEAN PLATELET VOLUME 8.7 fL (7.4-10.4); PLATELET COUNT 227 x10^3/uL (130-400); RED BLOOD COUNT 4.53 x10^6/uL (3.82-5.3); RED CELL DISTRIBUTION WIDTH 19.6 % (9.6-15.2)
[2020-09-29 05:24] LABS: ALANINE AMINOTRANSFERASE 411 U/L (12-78); ALBUMIN 3.2 g/dL (3.4-5.0); ANION GAP 8 mmol/L (5-15); CHLORIDE 101 mmol/L (98-107)
[2020-09-29 05:27] LABS: ALKALINE PHOSPHATASE 266 U/L (45-117); BILIRUBIN,TOTAL 0.5 mg/dL (0.2-1.0); CREATININE 1.23 mg/dL (0.55-1.02); TOTAL PROTEIN 7.3 g/dL (6.4-8.2)
[2020-09-29 06:01] LABS: ANISOCYTOSIS 1+; BANDS%(MANUAL) 5 % (0-7); LYMPH#(MANUAL) 0.54 x10^3/uL (1-3.4); LYMPHS% (MANUAL) 9 % (22-44); SEG#(MANUAL) 5.16 x10^3/uL (1.8-6.8); SEGS% (MANUAL) 86 % (42-75); TEAR DROPS 1+
[2020-09-29 06:02] LABS: <PLATELET ESTIMATE> ADEQUATE; <PLT MORPHOLOGY> NORMAL PLT MORPH; POLYCHROMASIA 1+
[2020-09-29 07:21] VITALS: BP 115/82
[2020-09-29] MEDS: TOLTERODINE LA 4MG CAP.ER.24H PO SCH (08:12)
[2020-09-29] MEDS: ASPIRIN 81 MG TABLET EC PO SCH (08:12)
[2020-09-29] MEDS: ACYCLOVIR 400 MG TABLET PO SCH ×2 (08:12→20:10)
[2020-09-29] MEDS ORDERED: POMALIDOMIDE 4 MG PO SCH (09:00)
[2020-09-29] MEDS ORDERED: PROPOFOL 10 MG/ML, 20ML ONE (12:06)
[2020-09-29] MEDS ORDERED: LIDOCAINE 1%, 20ML ONE (12:06)
[2020-09-29] MEDS ORDERED: GADOTERATE 10 MMOL/20ML SYR ONE (13:00)
[2020-09-29] MEDS ORDERED: DEXAMETHASONE 4 MG TABLET PO ONE (14:00)
[2020-09-29 15:07] VITALS: BP 107/47
[2020-09-29] MEDS: ENOXAPARIN 40 MG/0.4 ML SQ SCH (20:10)
[2020-09-29] MEDS: PANTOPRAZOLE 40MG TABLET PO SCH (20:10)
[2020-09-29] MEDS: DULOXETINE 30 MG CAPSULE.DR PO SCH (20:10)
[2020-09-29 20:29] VITALS: BP 133/83
[2020-09-30] MEDS: OXYcodone IR 5MG TABLET PO PRN ×5 (00:36→21:09)
[2020-09-30] MEDS: HYDROmorphone 2 MG/ML, 1ML IVPush PRN ×6 (01:23→18:57)
[2020-09-30 01:34] VITALS: BP 122/76
[2020-09-30 04:59] LABS: BASOPHILS % (AUTO) 0 % (0-1); EOSINOPHILS % (AUTO) 0 % (1-7); LYMPHOCYTES % (AUTO) 6 % (22-44); MEAN CORPUSCULAR HEMOGLOBIN 31.8 pg (27.0-34.8); MEAN CORPUSCULAR HGB CONC 33.6 g/dL (32.4-35.8); MEAN PLATELET VOLUME 8.6 fL (7.4-10.4); MONOCYTES % (AUTO) 4 % (2-9); NEUTROPHILS % (AUTO) 90 % (42-75); PLATELET COUNT 235 x10^3/uL (130-400); RED BLOOD COUNT 3.88 x10^6/uL (3.82-5.3); RED CELL DISTRIBUTION WIDTH 19.2 % (9.6-15.2)
[2020-09-30 05:12] LABS: ALBUMIN 3.1 g/dL (3.4-5.0); ANION GAP 5 mmol/L (5-15); CALCIUM 8.3 mg/dL (8.5-10.1); CHLORIDE 104 mmol/L (98-107)
[2020-09-30 05:15] LABS: ALANINE AMINOTRANSFERASE 219 U/L (12-78); ALKALINE PHOSPHATASE 179 U/L (45-117); BILIRUBIN,TOTAL 0.5 mg/dL (0.2-1.0); CREATININE 0.92 mg/dL (0.55-1.02); TOTAL PROTEIN 6.4 g/dL (6.4-8.2)
[2020-09-30] MEDS: ASPIRIN 81 MG TABLET EC PO SCH (08:24)
[2020-09-30] MEDS: TOLTERODINE LA 4MG CAP.ER.24H PO SCH (08:24)
[2020-09-30] MEDS: ACYCLOVIR 400 MG TABLET PO SCH ×2 (08:24→21:09)
[2020-09-30 08:37] VITALS: BP 121/63
[2020-09-30 13:02] VITALS: BP 148/80
[2020-09-30] MEDS: DOCUSATE 100 MG CAPSULE PO PRN (17:18)
[2020-09-30 18:11] VITALS: BP 126/79
[2020-09-30] MEDS: ENOXAPARIN 40 MG/0.4 ML SQ SCH (19:46)
[2020-09-30] MEDS: PANTOPRAZOLE 40MG TABLET PO SCH (21:08)
[2020-09-30] MEDS: METHOCARBAMOL 500 MG TABLET PO PRN (21:08)
[2020-09-30] MEDS: DULOXETINE 30 MG CAPSULE.DR PO SCH (21:09)
[2020-09-30] MEDS: LORazepam 1MG TABLET PO PRN (21:12)
[2020-10-01 01:39] VITALS: BP 129/87
[2020-10-01] MEDS: HYDROmorphone 2 MG/ML, 1ML IVPush PRN ×6 (02:21→21:30)
[2020-10-01] MEDS: METHOCARBAMOL 500 MG TABLET PO PRN ×2 (03:59→10:11)
[2020-10-01] MEDS: OXYcodone IR 5MG TABLET PO PRN ×4 (03:59→19:46)
[2020-10-01 05:54] LABS: BASOPHILS % (AUTO) 2 % (0-1); EOSINOPHILS % (AUTO) 4 % (1-7); LYMPHOCYTES % (AUTO) 9 % (22-44); MEAN CORPUSCULAR HEMOGLOBIN 31.5 pg (27.0-34.8); MEAN CORPUSCULAR HGB CONC 33.5 g/dL (32.4-35.8); MONOCYTES % (AUTO) 14 % (2-9); NEUTROPHILS % (AUTO) 71 % (42-75); PLATELET COUNT 257 x10^3/uL (130-400); RED BLOOD COUNT 3.85 x10^6/uL (3.82-5.3); RED CELL DISTRIBUTION WIDTH 19.1 % (9.6-15.2)
[2020-10-01 05:58] LABS: CHLORIDE 104 mmol/L (98-107)
[2020-10-01 05:59] LABS: CALCIUM 8.6 mg/dL (8.5-10.1); CREATININE 0.92 mg/dL (0.55-1.02)
[2020-10-01 06:07] LABS: ANION GAP 3 mmol/L (5-15)
[2020-10-01 07:25] VITALS: BP 120/66
[2020-10-01] MEDS: ASPIRIN 81 MG TABLET EC PO SCH (08:05)
[2020-10-01] MEDS: TOLTERODINE LA 4MG CAP.ER.24H PO SCH (08:05)
[2020-10-01] MEDS: ACYCLOVIR 400 MG TABLET PO SCH ×2 (08:05→21:31)
[2020-10-01 13:23] VITALS: BP 140/54
[2020-10-01] MEDS: GABAPENTIN 400 MG CAPSULE PO SCH ×2 (15:26→23:30)
[2020-10-01] MEDS: METHOCARBAMOL 500 MG TABLET PO SCH (18:02)
[2020-10-01 18:23] VITALS: BP 152/82
[2020-10-01] MEDS: ENOXAPARIN 40 MG/0.4 ML SQ SCH (19:46)
[2020-10-01] MEDS: PANTOPRAZOLE 40MG TABLET PO SCH (21:31)
[2020-10-01] MEDS: LORazepam 1MG TABLET PO PRN (21:31)
[2020-10-01] MEDS: DULOXETINE 30 MG CAPSULE.DR PO SCH (21:31)
[2020-10-01] MEDS: DOCUSATE 100 MG CAPSULE PO PRN (21:40)
[2020-10-02 02:06] VITALS: BP 120/70
[2020-10-02] MEDS: METHOCARBAMOL 500 MG TABLET PO SCH ×3 (02:11→15:44)
[2020-10-02] MEDS: HYDROmorphone 2 MG/ML, 1ML IVPush PRN ×5 (04:53→18:10)
[2020-10-02] MEDS: OXYcodone IR 5MG TABLET PO PRN ×2 (06:00→15:48)
[2020-10-02] MEDS: LORazepam 1MG TABLET PO PRN ×2 (06:05→18:45)
[2020-10-02 07:30] VITALS: BP 122/89
[2020-10-02] MEDS: ACYCLOVIR 400 MG TABLET PO SCH (08:16)
[2020-10-02] MEDS: ASPIRIN 81 MG TABLET EC PO SCH (08:16)
[2020-10-02] MEDS: TOLTERODINE LA 4MG CAP.ER.24H PO SCH (08:16)
[2020-10-02] MEDS: GABAPENTIN 400 MG CAPSULE PO SCH ×2 (08:17→15:44)
[2020-10-02 13:44] VITALS: BP 132/82
[2020-10-02] MEDS ORDERED: OXYC5TAB98 PO (15:09)
[2020-10-02] MEDS ORDERED: METH-639 PO (15:09)
== END 2020-10-02 18:58 | disposition home or self-care (01) | DRG 552 ==
LOC: ED 10:11 → SUATTDRO 13:38 → EDIP 14:04 → 4NE 14:59 → 4NW 09-29 15:15
PROVIDERS: ADMIT Internal Medicine; ATTEND Hospitalist
DX: M54.31 Sciatica, right side (principal); N17.9 Acute kidney failure, unspecified; Z94.84 Stem cells transplant status; Z20.822 Contact with and (suspected) exposure to COVID-19; Z88.5 Allergy status to narcotic agent; Z88.8 Allergy status to other drugs, medicaments and biological substances; G47.33 Obstructive sleep apnea (adult) (pediatric); I10 Essential (primary) hypertension; K76.0 Fatty (change of) liver, not elsewhere classified; Z90.710 Acquired absence of both cervix and uterus; Z98.84 Bariatric surgery status
CPT/HCPCS: 36415; 72110; 72158; 80048; 80053; 85025; 87635; 96374; G0378; J1100; J1170; J1650; J1885; J2405; J2704; J3360; A9575

== ENCOUNTER 2020-10-17 22:28 | Emergency (ER) | payer SELFPAY ==
[~2020-10-17] VITALS: Ht 157.5 cm; Wt 95.2 kg
[~2020-10-17 22:28] MED LIST changes: +ASPI-963 PO; +METH-639 PO; +PROTONIX
--- NOTE | 2020-10-17 22:45 | NUR ---
assessment made. chart up for MD to see.
--- NOTE | 2020-10-17 22:50 | NUR ---
c/o right knee pain, burning as described. no new trauma.
--- NOTE | 2020-10-17 22:51 | NUR ---
ERP at bedside.
[2020-10-17] MEDS ORDERED: HYDROcodone/APAP 5/325 TABLET ONE (22:56)
[2020-10-17] MEDS ORDERED: HYDROcodone/APAP 5/325 TABLET PO ONE (23:00)
--- NOTE | 2020-10-17 23:01 | NUR ---
patient medicated for pain. awaiting CT scan.
--- NOTE | 2020-10-17 23:13 | NUR ---
back from CT scan. awaiting result.
--- NOTE | 2020-10-17 23:32 | NUR ---
CT scan resulted. chart up for MD to re-eval.
--- NOTE | 2020-10-17 23:48 | NUR ---
patient discharged with instruction. verbalized understanding.
[2020-10-17 23:49] VITALS: BP 111/71
== END 2020-10-17 23:51 | disposition home or self-care (01) ==
LOC: ED 23:16
DX: M13.861 Other specified arthritis, right knee (principal); G89.29 Other chronic pain; Z90.49 Acquired absence of other specified parts of digestive tract; Z90.710 Acquired absence of both cervix and uterus; Z87.11 Personal history of peptic ulcer disease
CPT/HCPCS: 99284

== ENCOUNTER → 2020-11-23 | Outpatient (CLI) | payer OTHER ==
[~2020-11-23] MED LIST changes: +OXYC1TAB12 PO; -OXYC1TAB14 PO
== END | disposition home or self-care (01) ==
LOC: RAD 11:07
PROVIDERS: ATTEND Nurse Practitioner
DX: M25.751 Osteophyte, right hip (principal); M47.816 Spondylosis without myelopathy or radiculopathy, lumbar region; M53.3 Sacrococcygeal disorders, not elsewhere classified; M79.18 Myalgia, other site

== ENCOUNTER → 2020-11-29 | Outpatient (CLI) | payer OTHER | END | disposition home or self-care (01) | LOC: RAD 14:33 | PROVIDERS: ATTEND Specialist | DX: C90.00 Multiple myeloma not having achieved remission (principal); K76.0 Fatty (change of) liver, not elsewhere classified; D80.1 Nonfamilial hypogammaglobulinemia; D50.9 Iron deficiency anemia, unspecified ==